=== PATIENT | female | born 1965 | race Caucasian/White ===

== ENCOUNTER 2019-05-08 22:13 | Emergency (ER) | payer SELFPAY ==
[2019-05-08 23:01] VITALS: BP 151/101; PULSE 96; RESP 18; TEMP 36.7; O2SAT 92; BMI 24.7
--- NOTE | 2019-05-08 23:37 | XR_ITS ---
WS: [id number] XR chest 1V portable [id number] REASON FOR EXAM: admission FINDINGS: Comparisons were made to 02/07/2018. The lung nicole are well aerated. No pneumonia, pleural effusion, pulmonary edema, or mass effect. The heart was not enlarged. Cardiomediastinal ratios appear to be normal. The hilum and apices are normal. No osseous abnormalities. XR/XR chest 1V portable [id number] IMPRESSION: No active cardiopulmonary disease.
--- NOTE | 2019-05-08 23:37 | W.ED.GENADLT ---
HPI - General Adult General: Chief complaint: Shortness of Breath/Dyspnea Stated complaint: sob, cough Time Seen by Provider: 05/08/19 23:33 History of Present Illness: HPI narrative: Patient with a history of a cough for the last few days fever exposure to influenza B. Patient said her cough is getting worse. History of COPD and a smoker. MD complaint: Cough Onset (ago): day(s) Radiation: non-radiation Associated symptoms: Reports cough, dyspnea and fevers/chills; Deny chest pain, headache(s), nausea, rash or vomiting Review of Systems Const: Reports: fever; Denies: chills or body aches Eyes: Denies: change in vision or blurry vision ENMT: Denies: throat pain or nasal congestion Card: Denies: chest pain or shortness of breath on exertion Resp: Reports: shortness of breath, non-productive cough and wheezing; Denies: productive cough GI: Denies: abdominal pain, nausea or vomiting Musc: Denies: extremity pain Skin/Breast: Denies: rash Neuro: Denies: headache Psych: Denies: anxiety or depression Reji/Lymph: Denies: easy bruising PFSH ED PFSH: Social History Smoking and tobacco status: current every day smoker Physical Exam Const: COMMON NORMALS: no apparent distress, average body habitus and oriented x3 HENMT: COMMON NORMALS: normocephalic HEAD & SCALP: normal to inspection and normocephalic FACE & SINUS: normal facial exam Eye: COMMON NORMALS: conjunctivae normal GENERAL EYE: normal appearance of both eyes CONJUNCTIVA: Yes conjunctivae normal Neck/C-Spine: COMMON NORMALS: no JVD Chest: COMMONS NORMALS: inspection of chest normal Resp: COMMON NORMALS: normal respiratory effort AUSCULTATION: wheezes left lower and left upper Cardio: COMMON NORMALS: no JVD, regular rate and regular rhythm RATE: regular rate RHYTHM: regular rhythm GI: COMMON NORMALS: normal to inspection, nondistended, normoactive bowel sounds Extremity: COMMON NORMALS: normal to inspection and full ROM Neuro: COMMON NORMALS: oriented x3 Course Vital Signs: Vital signs: Vital Signs Temperature 98.1 F 05/08/19 23:01 Pulse Rate 84 05/08/19 23:50 Respiratory Rate 18 05/08/19 23:50 Blood Pressure 132/81 05/08/19 23:49 Pulse Oximetry 99 05/08/19 23:50 MDM - General Adult Lab Data: Labs: Lab Results 05/08/19 Range/Units 23:40 Influenza Type A A g Negative (Negative) POC Influenza B Ag Negative (Negative) Imaging Data^: CXR: My impression: No infiltrate seen increased bronchial markings emphysema changes Discharge Plan Discharge Prescriptions: No Action Zyrtec 10 mg Tablet 10 mg PO DAILY RF: 0 Coding Level of Care Code ED Medical Videographer for Chg Fwd Exam Comprehensive
[2019-05-08 23:47] VITALS: PULSE 85; RESP 18; O2SAT 97
[2019-05-08] MEDS: ipratropium-albuterol 3 mL Neb INHALATION (23:47)
[2019-05-08 23:49] VITALS: BP 132/81; PULSE 89; RESP 20; O2SAT 99
[2019-05-08 23:50] VITALS: PULSE 84; RESP 18; O2SAT 99
[2019-05-08] MEDS: predniSONE 20 mg Tablet 60 MG PO (23:57)
[2019-05-09 00:23] LABS: Influenza A by IFA Negative (Negative); Influenza B by IFA Negative (Negative)
[2019-05-09] MEDS: azithromycin 250 mg Tablet 500 MG PO (01:01)
[2019-05-09 01:03] VITALS: BP 129/79; PULSE 89; RESP 18; O2SAT 93
== END 2019-05-09 01:04 | disposition home or self-care (01) ==
PROVIDERS: Emergency Provider Nurse Practitioner Family; Family Provider Family Medicine; PCP Family Medicine
DX: R06.02 Shortness of breath (principal); R05 Cough; R50.9 Fever, unspecified; J44.9 Chronic obstructive pulmonary disease, unspecified; F17.200 Nicotine dependence, unspecified, uncomplicated
CPT/HCPCS: 71045; 87804; 94640; 99281; 99283; J7512; Q0144

== ENCOUNTER 2019-10-17 23:53 | Emergency (ER) | payer SELFPAY ==
[2019-10-17 23:56] VITALS: BP 185/84; PULSE 85; RESP 18; TEMP 36.9; O2SAT 96; BMI 25.9
[2019-10-18 00:12] VITALS: BP 176/91; PULSE 85; RESP 19; O2SAT 96
--- NOTE | 2019-10-18 00:22 | XRR_ITS ---
PROCEDURE INFORMATION: Exam: XR Chest, 1 View Exam date and time: 10/18/2019 1:54 AM Age: 54 years old Clinical indication: Shortness of breath; Additional info: SOB x several days TECHNIQUE: Imaging protocol: XR of the chest Views: 1 view. COMPARISON: CR XR chest 1V portable [id number] 05/09/2019 12:13 AM FINDINGS: Lungs: No consolidation. Pleural space: No pleural effusion. No pneumothorax. Heart/Mediastinum: No cardiomegaly. Bones/joints: No acute fracture. XR/XR chest 1V portable [id number] IMPRESSION: No acute findings.
--- NOTE | 2019-10-18 00:23 | ECG_ITS ---
[facility] Test Date: 2019-10-18 Pat Name: Ines Gallegos Department: Room: Gender: Female Operations Engineer: : 1965 Requested By: Leandro Norton Order Number: [id number] Alisha MD: Renetta Moy M.D. Measurements Intervals [place] Rate: 77 P: 63 HI: 141 QRS: 13 QRSD: 117 T: 65 QT: 378 QTc: 429 Interpretive Statements SINUS RHYTHM POSSIBLE LEFT ATRIAL ENLARGEMENT [-0.1mV P WAVE IN V1/V2] INCOMPLETE RIGHT BUNDLE BRANCH BLOCK [90+ ms QRS DURATION, TERMINAL R IN V1/V2, 40+ ms S IN I/aVL/V4/V5/V6] SEPTAL MYOCARDIAL INFARCTION , OF INDETERMINATE AGE [40+ ms Q WAVE IN V1/V2] No previous ECG available for comparison Electronically Signed On 10-18-2019 21:27:53 CDT by Renetta Moy M.D. [email or web address]
[2019-10-18 00:38] LABS: Basophils % 0.3 %; Eosinophils # 0.1 10^3/uL (0.0-0.8); Eosinophils % 0.8 %; Hematocrit 42.7 % (37.0-47.0); Hemoglobin 13.7 g/dL (11.5-15.3); Lymphocytes # 3.6 10^3/uL (0.8-4.8); Lymphocytes % 24.9 %; Mean Corpuscular HGB Conc 32.1 g/dL (30.0-36.0); Mean Corpuscular Hemoglobin 28.4 pg (28.0-34.0); Mean Corpuscular Volume 88.6 fL (81-99); Mean Platelet Volume 11.5 fL (7.4-10.4); Monocytes # 1.1 10^3/uL (0.2-0.9); Monocytes % 7.5 %; Neutrophils # 9.41 10^3/uL (1.8-7.7); Neutrophils % 65.4 %; Nucleated Red Blood Cells % 0 %; Platelet Count 236 10^3/cmm (130-400); Red Blood Count 4.82 10^6/uL (4.1-5.3); Red Cell Distribution Width 12.9 % (12.1-15.1); White Blood Count 14.4 10^3/uL (4.0-10.0)
[2019-10-18 00:49] LABS: Lactic Sepsis W/Reflex 1.5 mmol/L (0.5-2.2)
[2019-10-18 00:51] LABS: Troponin(5th) Baseline 6 ng/L (0-10)
[2019-10-18 00:53] VITALS: BP 161/83; PULSE 76; RESP 18; O2SAT 96
[2019-10-18 00:55] LABS: D Dimer 0.53 ug/mIFEU (0-0.59)
[2019-10-18 00:55] LABS: ABG PCO2 38.2 mmHg (35-45); ABG PH Result 7.43 (7.35-7.45); Arterial Blood Gas Hematocrit 43.6 % (37-47); Base Excess ABG 0.9 mmol/L (-2.0-2.0); Blood Gas Allen Test Pos; Blood Gas Sample Site Radial, right; Blood Gas Sample Type Arterial; Carboxyhemoglobin 3.6 %THgb (0.4-20.1); HCO3 ABG 25.1 mmol/L (22-26); HGB O2 Sat 94.2 % (95-100); Methemoglobin 0.9 % (0.4-1.5); Oxygen Device NC; Total Hemoglobin 14.2 g/dL (12-16)
[2019-10-18 01:01] LABS: Alanine Aminotransferase 16 U/L (0-33); Albumin Level 4.3 g/dL (3.5-5.2); Alkaline Phosphatase 133 IU/L (35-105); Anion Gap 13.9 (5-19); Aspartate Amino Transferase 14 U/L (0-32); Blood Urea Nitrogen 15 mg/dL (6-20); Calcium 9.3 mg/dL (8.5-10.5); Carbon Dioxide 24 mmol/L (22-29); Chloride 106 mmol/L (98-107); Globulin 2.6 g/dL (1.3-4.6); Glomerular Filtration Rate 74.5 mL/min (90-130); Glucose 119 mg/dL (65-115); NT Pro B Type Natriuretic Pept 798 pg/mL (0-125); Osmolality Calculated 287 mOsm/kg (285-295); Potassium 3.9 mmol/L (3.5-5.1); Sodium 140 mmol/L (136-145); Total Bilirubin 0.2 mg/dL (0.15-1.2); Total Protein 6.9 g/dL (6.6-8.7)
[2019-10-18 01:02] VITALS: PULSE 82; PULSE 87; RESP 16; RESP 19; O2SAT 95
[2019-10-18] MEDS: ipratropium-albuterol 3 mL Neb INHALATION (01:02)
[2019-10-18 02:15] VITALS: PULSE 75; RESP 17; O2SAT 96
[2019-10-18 02:18] VITALS: BP 163/115; PULSE 85; RESP 18; O2SAT 93
[2019-10-18 03:08] LABS: Troponin 5 2HR 10.12 ng/L (0-10); Troponin 5 2HR Delta 4.12 ABS# (0-10)
--- NOTE | 2019-10-18 03:27 | ED_ITS ---
HPI - SOB/Dyspnea General: Chief Complaint: Shortness of Breath/Dyspnea Stated Complaint: SOB Time Seen by Provider: 10/18/19 00:04 History of Present Illness: HPI Narrative: 54-year-old female with a history of COPD. She reports increasing shortness of breath past few days. She had been to her provider, and gotten some prednisone and antibiotics previously, and had taken 3 days of 40 mg of prednisone. She has been using her inhaler, but without a spacer at home. She improved with a breathing treatment and oxygen on the ambulance. She denies any fever, significant cough, or exposure to anyone known to have the coronavirus. MD elicited complaint: shortness of breath and cough Pertinent past history: COPD Onset (ago): day(s) Context: recent illness Timing: intermittent Severity: moderate Exacerbating factors: exertion Relieving factors: oxygen and bronchodilators Known history of: COPD Associated symptoms: Reports dizziness; Deny diaphoresis, fever(s), nausea or orthopnea Review of Systems Const: Denies: fever(s) or diaphoresis Eyes: Denies: change in vision or blurry vision ENMT: Denies: bleeding gums, epistaxis, post nasal drip or sinus pain Card: Denies: orthopnea Resp: Reports: dyspnea and non-productive cough; Denies: productive cough or wheezing GI: Denies: nausea : Denies: dysuria, urinary frequency, urinary urgency or hematuria Musc: Denies: neck pain, back pain, joint redness or joint warmth Skin/Breast: Denies: rash, pruritus or erythema Neuro: Reports: dizziness Psych: Denies: anxiety PFSH ED PFSH: Social History Smoking and tobacco status: current every day smoker cigarettes Packs smoked per day: 0.5 Physical Exam Const: GENERAL APPEARANCE: well developed ORIENTATION/CONSCIOUSNESS: Yes oriented to person, Yes oriented to place and Yes oriented to time HENMT: COMMON NORMALS: normocephalic, external ears normal and Normal external nose present HEAD & SCALP: normocephalic FACE & SINUS: normal facial exam NOSE: Normal external nose present and No nasal discharge present EXTERNAL EAR: Yes external ears normal Eye: COMMON NORMALS: Equal, round and reactive pupils present, EOMs intact bilaterally and conjunctivae normal EYELID: eyelids normal CONJUNCTIVA: Yes conjunctivae normal PUPIL: Yes Equal, round and reactive pupils present Neck/C-Spine: GENERAL: No tracheal deviation Chest: COMMONS NORMALS: normal inspection of the chest CHEST: No tenderness Resp: COMMON NORMALS: clear to auscultation bilaterally EFFORT & INSPECTION: Yes tachypneic, No respiratory distress, No retractions, No uses accessory muscles and No tracheal deviation AUSCULTATION: clear to auscultation bilaterally, no rhonchi, no wheezes and lung sounds not diminished Cardio: COMMON NORMALS: regular rate and regular rhythm RATE: regular rate RHYTHM: regular rhythm HEART SOUNDS: no murmurs PERIPHERAL PULSES: radial pulses present GI: INSPECTION: No abdominal distension AUSCULTATION: No Hyperactive bowel sounds present and No Hypoactive bowel sounds present PALPATION: No Guarding due to palpation present (GI) and No Rigid due to palpation PERCUSSION: no dullness to percussion and no tympanic to percussion Neuro: SENSORIUM/ORIENTATION: Yes oriented to person, Yes oriented to place and Yes oriented to time Psych: COMMON NORMALS: mental status grossly normal Skin: COMMON NORMALS: no rashes or lesions noted GENERAL SKIN EXAM: no rashes or lesions noted Course Vital Signs: Vital signs: Vital Signs Temperature 98.4 F 10/17/19 23:56 Pulse Rate 85 10/18/19 02:18 Respiratory Rate 18 10/18/19 02:18 Blood Pressure 163/115 10/18/19 02:18 Pulse Oximetry 93 10/18/19 02:18 MDM - SOB/Dyspnea MDM Narrative: Medical decision making narrative: 54-year-old female who had been to her primary care provider a couple of days prior and been prescribed steroids and an inhaler. Respiratory observed her using her inhaler while here, and she was not very efficient with it. She took to a spacer much better. She is much better after a DuoNeb treatment here. She has been given Solu-Medrol. She will continue her prednisone and azithromycin she be prescribed ipratropium to combined with her albuterol to use with a spacer. She knows to return for any worsening shortness of breath or other symptoms. Lab Data: Labs: Lab Results 10/18/19 10/18/19 10/18/19 Range/Units 00:10 00:10 00:10 WBC 14.4 H (4.0-10.0) 10^3/ uL RBC 4.82 (4.1-5.3) 10^6/u L Hgb 13.7 (11.5-15.3) g/dL Hct 42.7 (37.0-47.0) % MCV 88.6 (81-99) fL MCH 28.4 (28.0-34.0) pg MCHC 32.1 (30.0-36.0) g/dL RDW 12.9 (12.1-15.1) % Plt Count 236 (130-400) 10^3/c mm MPV 11.5 H (7.4-10.4) fL Neut % (Auto) 65.4 % Lymph % (Auto) 24.9 % Frontier % (Auto) 7.5 % Eos % (Auto) 0.8 % Baso % (Auto) 0.3 % Neut # (Auto) 9.41 H (1.8-7.7) 10^3/u L Lymph # (Auto) 3.6 (0.8-4.8) 10^3/u L Frontier # (Auto) 1.1 H (0.2-0.9) 10^3/u L Eos # (Auto) 0.1 (0.0-0.8) 10^3/u L Baso # (Auto) 0.0 (0.0-0.1) 10^3/u L Nucleated RBC % (a uto) 0 % Nucleated RBCs # 0.0 /100WBC D-Dimer 0.53 (0-0.59) ug/mIFE U Specimen Type Sample Site ABG pH (7.35-7.45) ABG pCO2 (35-45) mmHg ABG pO2 (80.0-100.0) mmH g ABG HCO3 (22-26) mmol/L ABG Base Excess (-2.0-2.0) mmol/ L Hank Test Hematocrit (37-47) % Hgb O2 Saturation (95-100) % Carboxyhemoglobin (0.4-20.1) %THgb Methemoglobin (0.4-1.5) % Total Hemoglobin (12-16) g/dL O2 Delivery Device O2 Liters/Min % Machine Hostler ID Sodium 140 (136-145) mmol/L Potassium 3.9 (3.5-5.1) mmol/L Chloride 106 (98-107) mmol/L Carbon Dioxide 24 (22-29) mmol/L Anion Gap 13.9 (5-19) BUN 15 (6-20) mg/dL Creatinine 0.8 (0.5-0.9) mg/dL GFR Calculation 74.5 L (90-130) mL/min Glucose 119 H (65-115) mg/dL Calculated Osmolal ity 287 (285-295) mOsm/k g Lactic Acid (0.5-2.2) mmol/L Calcium 9.3 (8.5-10.5) mg/dL Total Bilirubin 0.2 (0.15-1.2) mg/dL AST 14 (0-32) U/L ALT 16 (0-33) U/L Alkaline Phosphata se 133 H (35-105) IU/L Troponin T Baselin e (0-10) ng/L Troponin T 120 Min [place] (0-10) ng/L Delta Troponin T (0-10) ABS# NT-Pro-B Natriuret Pep 798 H (0-125) pg/mL Total Protein 6.9 (6.6-8.7) g/dL Albumin 4.3 (3.5-5.2) g/dL Globulin 2.6 (1.3-4.6) g/dL 10/18/19 10/18/19 10/18/19 Range/Units 00:10 00:10 00:48 WBC (4.0-10.0) 10^3/ uL RBC (4.1-5.3) 10^6/u L Hgb (11.5-15.3) g/dL Hct (37.0-47.0) % MCV (81-99) fL MCH (28.0-34.0) pg MCHC (30.0-36.0) g/dL RDW (12.1-15.1) % Plt Count (130-400) 10^3/c mm MPV (7.4-10.4) fL Neut % (Auto) % Lymph % (Auto) % Frontier % (Auto) % Eos % (Auto) % Baso % (Auto) % Neut # (Auto) (1.8-7.7) 10^3/u L Lymph # (Auto) (0.8-4.8) 10^3/u L Frontier # (Auto) (0.2-0.9) 10^3/u L Eos # (Auto) (0.0-0.8) 10^3/u L Baso # (Auto) (0.0-0.1) 10^3/u L Nucleated RBC % (a uto) % Nucleated RBCs # /100WBC D-Dimer (0-0.59) ug/mIFE U Specimen Type Arterial Sample Site Radial, right ABG pH 7.43 (7.35-7.45) ABG pCO2 38.2 (35-45) mmHg ABG pO2 108.0 H (80.0-100.0) mmH g ABG HCO3 25.1 (22-26) mmol/L ABG Base Excess 0.9 (-2.0-2.0) mmol/ L Hank Test Pos Hematocrit 43.6 (37-47) % Hgb O2 Saturation 94.2 L (95-100) % Carboxyhemoglobin 3.6 (0.4-20.1) %THgb Methemoglobin 0.9 (0.4-1.5) % Total Hemoglobin 14.2 (12-16) g/dL O2 Delivery Device Nc O2 Liters/Min 2.0 % Machine Hostler ID [email or web address] Sodium (136-145) mmol/L Potassium (3.5-5.1) mmol/L Chloride (98-107) mmol/L Carbon Dioxide (22-29) mmol/L Anion Gap (5-19) BUN (6-20) mg/dL Creatinine (0.5-0.9) mg/dL GFR Calculation (90-130) mL/min Glucose (65-115) mg/dL Calculated Osmolal ity (285-295) mOsm/k g Lactic Acid 1.5 (0.5-2.2) mmol/L Calcium (8.5-10.5) mg/dL Total Bilirubin (0.15-1.2) mg/dL AST (0-32) U/L ALT (0-33) U/L Alkaline Phosphata se (35-105) IU/L Troponin T Baselin e 6 (0-10) ng/L Troponin T 120 Min [place] (0-10) ng/L Delta Troponin T (0-10) ABS# NT-Pro-B Natriuret Pep (0-125) pg/mL Total Protein (6.6-8.7) g/dL Albumin (3.5-5.2) g/dL Globulin (1.3-4.6) g/dL 10/18/19 Range/Units 02:07 WBC (4.0-10.0) 10^3/ uL RBC (4.1-5.3) 10^6/u L Hgb (11.5-15.3) g/dL Hct (37.0-47.0) % MCV (81-99) fL MCH (28.0-34.0) pg MCHC (30.0-36.0) g/dL RDW (12.1-15.1) % Plt Count (130-400) 10^3/c mm MPV (7.4-10.4) fL Neut % (Auto) % Lymph % (Auto) % Frontier % (Auto) % Eos % (Auto) % Baso % (Auto) % Neut # (Auto) (1.8-7.7) 10^3/u L Lymph # (Auto) (0.8-4.8) 10^3/u L Frontier # (Auto) (0.2-0.9) 10^3/u L Eos # (Auto) (0.0-0.8) 10^3/u L Baso # (Auto) (0.0-0.1) 10^3/u L Nucleated RBC % (a uto) % Nucleated RBCs # /100WBC D-Dimer (0-0.59) ug/mIFE U Specimen Type Sample Site ABG pH (7.35-7.45) ABG pCO2 (35-45) mmHg ABG pO2 (80.0-100.0) mmH g ABG HCO3 (22-26) mmol/L ABG Base Excess (-2.0-2.0) mmol/ L Hank Test Hematocrit (37-47) % Hgb O2 Saturation (95-100) % Carboxyhemoglobin (0.4-20.1) %THgb Methemoglobin (0.4-1.5) % Total Hemoglobin (12-16) g/dL O2 Delivery Device O2 Liters/Min % Machine Hostler ID Sodium (136-145) mmol/L Potassium (3.5-5.1) mmol/L Chloride (98-107) mmol/L Carbon Dioxide (22-29) mmol/L Anion Gap (5-19) BUN (6-20) mg/dL Creatinine (0.5-0.9) mg/dL GFR Calculation (90-130) mL/min Glucose (65-115) mg/dL Calculated Osmolal ity (285-295) mOsm/k g Lactic Acid (0.5-2.2) mmol/L Calcium (8.5-10.5) mg/dL Total Bilirubin (0.15-1.2) mg/dL AST (0-32) U/L ALT (0-33) U/L Alkaline Phosphata se (35-105) IU/L Troponin T Baselin e (0-10) ng/L Troponin T 120 Min [place] 10.12 H (0-10) ng/L Delta Troponin T 4.12 (0-10) ABS# NT-Pro-B Natriuret Pep (0-125) pg/mL Total Protein (6.6-8.7) g/dL Albumin (3.5-5.2) g/dL Globulin (1.3-4.6) g/dL Discharge Plan Discharge Patient Disposition: Home Clinical Impression: COPD exacerbation Condition: Stable Prescriptions: New ipratropium bromide 17 mcg/actuation HFA aerosol inhaler 1 inh INHALATION Q6H PRN (Reason: shortness of breath or wheezing) Qty: 12.9 RF: 0 No Action famotidine 10 mg tablet 10 mg PO DAILY RF: 0 albuterol sulfate 90 mcg/actuation HFA aerosol inhaler 2 inh INHALATION QID PRN (Reason: shortness of breath or wheezing) Qty: 18 RF: 3 fluticasone propion-salmeterol [Advair Diskus] 250-50 mcg/dose blister with device 1 inh INHALATION BID Qty: 60 RF: 11 Zyrtec 10 mg Tablet 10 mg PO DAILY RF: 0 Discharge Orders: Discharge Order (Routine); Ordered 10/18/19 Ordered By: Leandro Sagastume Discharge Diet: Usual diet Discharge Activity: Increase activity as tolerated Patient Instructions: Chronic Obstructive Pulmonary Disease (ED) Activity Restrictions/Additional Instructions: Return to the emergency department for worsening shortness of breath despite treatment, fever greater than 100, worsening mental status, worsening chest discomfort, other concerning symptoms. Be sure to use the spacer with your albuterol. Use also with the new inhaler you were given. Use both the albuterol and ipratropium inhaler every 4 hours while awake for the next 48 hours, then as needed. Discharge Date/Time: 10/18/19 02:24 Coding Level of Care Code ED Instructor Knitting for Lisa Ibrahim
== END 2019-10-18 02:24 | disposition home or self-care (01) ==
PROVIDERS: Emergency Provider Emergency Medicine
DX: J44.1 Chronic obstructive pulmonary disease with (acute) exacerbation (principal); F17.210 Nicotine dependence, cigarettes, uncomplicated
CPT/HCPCS: 12345; 36600; 71045; 80053; 82805; 83605; 83880; 84484; 85025; 85378; 87040; 87070; 87205; 93005; 94640; 96374; 99283; 99284; J2930

== ENCOUNTER → 2019-11-26 08:36 | Outpatient (BNVA) | payer OTHER, SELFPAY | PROVIDERS: Visit Provider Internal Medicine | DX: Z11.59 Encounter for screening for other viral diseases (principal) | CPT/HCPCS: 87635 ==

== ENCOUNTER 2019-11-29 01:23 | Emergency (ER) | payer SELFPAY ==
[2019-11-29 01:28] VITALS: BP 150/103; PULSE 91; RESP 16; TEMP 36.4; O2SAT 97; BMI 26.5
--- NOTE | 2019-11-29 01:54 | XRR_ITS ---
PROCEDURE INFORMATION: Exam: XR Chest, 1 View Exam date and time: 11/29/2019 2:47 AM Age: 54 years old Clinical indication: Cough TECHNIQUE: Imaging protocol: XR of the chest Views: 1 view. COMPARISON: CR XR chest 1V portable [id number] 10/18/2019 1:43 AM FINDINGS: Lungs: Unremarkable. No consolidation. Pleural space: Unremarkable. No pleural effusion. No pneumothorax. Heart/Mediastinum: Unremarkable. No cardiomegaly. Bones/joints: Unremarkable. XR/XR chest 1V portable [id number] IMPRESSION: No acute findings.
--- NOTE | 2019-11-29 01:54 | CTR_ITS ---
PROCEDURE INFORMATION: Exam: CT Neck With Contrast Exam date and time: 11/29/2019 2:17 AM Age: 54 years old Clinical indication: Dysphagia / difficulty swallowing and mass, lump, or swelling in neck; Additional info: Throat tightness, ludwigs? TECHNIQUE: Imaging protocol: Computed tomography images of the neck with intravenous contrast. Radiation optimization: All CT scans at this facility use at least one of these dose optimization techniques: automated exposure control; mA and/or kV adjustment per patient size (includes targeted exams where dose is matched to clinical indication); or iterative reconstruction. Contrast material: OMNI 300; Contrast volume: 95 ml; Contrast route: INTRAVENOUS (IV); COMPARISON: No relevant prior studies available. RADIATION DOSE METRICS: Total DLP (mGy-cm): 581.83 FINDINGS: Nasopharynx: Unremarkable. Oropharynx: Unremarkable. No significant tonsillar enlargement. Hypopharynx: There is diffuse hypoattenuation and swelling seen within the fat and fascia at the base of the epiglottis extending along the right hypopharynx at the level of the hyoid bone and caudally to the level of the arytenoids. Some low attenuation material extends along the fascial planes anterior to the hyoid bone and superficial to the mylohyoid muscle on the right, deep to the right submandibular gland and extending posteriorly to the the right carotid sheath and medially into the prevertebral fascia planes on the right. These findings are compatible with pharyngitis and mild epiglottitis. Larynx: See Hypopharynx finding. Retropharyngeal space: Unremarkable. Submandibular/Parotid glands: See Hypopharynx finding. Thyroid: Normal. No enlarged or calcified nodules. Lymph nodes: Unremarkable. No lymphadenopathy. Trachea: Visualized trachea is unremarkable. Lungs: Unremarkable as visualized. Bones/joints: Unremarkable. No acute fracture. Soft tissues: Unremarkable. No significant soft tissue swelling. CT/CT neck w con* [id number] IMPRESSION: Edema and inflammatory changes are seen in the pharyngeal soft tissues on the right extending from the base of the epiglottis caudally on the right to the level of the arytenoids. Low attenuation extends anterior to the hyoid bone on the right deep to the right submandibular gland and superficial to the mylohyoid muscle. Low attenuation extends posteriorly to the right carotid sheath and medially into the prevertebral fascia planes. These findings suggest pharyngitis and mild epiglottitis. Radiation Dose CTDIVOL = (mGy): DLP = 581.83 (mGy-cm)
[2019-11-29 02:05] LABS: Basophils # 0.1 10^3/uL (0.0-0.1); Basophils % 0.7 %; Eosinophils # 0.4 10^3/uL (0.0-0.8); Eosinophils % 3.4 %; Hematocrit 40.3 % (37.0-47.0); Hemoglobin 13.2 g/dL (11.5-15.3); Lymphocytes # 3.8 10^3/uL (0.8-4.8); Lymphocytes % 35.6 %; Mean Corpuscular HGB Conc 32.8 g/dL (30.0-36.0); Mean Corpuscular Hemoglobin 29.3 pg (28.0-34.0); Mean Corpuscular Volume 89.6 fL (81-99); Mean Platelet Volume 11.3 fL (7.4-10.4); Monocytes # 0.8 10^3/uL (0.2-0.9); Monocytes % 7.7 %; Neutrophils # 5.61 10^3/uL (1.8-7.7); Neutrophils % 52.4 %; Nucleated Red Blood Cells % 0 %; Platelet Count 249 10^3/cmm (130-400); Red Cell Distribution Width 13.2 % (12.1-15.1); White Blood Count 10.7 10^3/uL (4.0-10.0)
[2019-11-29] MEDS: diphenhydrAMINE 50 mg/mL SDV 1mL 25 MG IVP (02:09)
[2019-11-29] MEDS: racepinephrine 0.5 mL Neb INHALATION (02:20)
[2019-11-29 02:21] VITALS: PULSE 81; RESP 20; O2SAT 98
[2019-11-29 02:23] VITALS: BP 152/96; PULSE 76; RESP 18; O2SAT 97
[2019-11-29 02:26] VITALS: PULSE 93
[2019-11-29 02:27] LABS: Alanine Aminotransferase 14 U/L (0-33); Albumin Level 4.2 g/dL (3.5-5.2); Alkaline Phosphatase 158 IU/L (35-105); Anion Gap 14.9 (5-19); Aspartate Amino Transferase 17 U/L (0-32); Blood Urea Nitrogen 12 mg/dL (6-20); Calcium 9.9 mg/dL (8.5-10.5); Carbon Dioxide 25 mmol/L (22-29); Chloride 102 mmol/L (98-107); Globulin 3.5 g/dL (1.3-4.6); Glucose 121 mg/dL (65-115); Osmolality Calculated 283 mOsm/kg (285-295); Potassium 3.9 mmol/L (3.5-5.1); Sodium 138 mmol/L (136-145); Total Bilirubin 0.2 mg/dL (0.15-1.2); Total Protein 7.7 g/dL (6.6-8.7)
[2019-11-29] MEDS: iohexol 300 mg/mL 100 mL Btl IV (02:35)
--- NOTE | 2019-11-29 03:12 | W.ED.URI ---
HPI - URI/Sore Throat General: Chief Complaint: Upper Respiratory Infection Stated Complaint: difficulty swallowing Time Seen by Provider: 11/29/19 01:32 History of Present Illness: HPI Narrative: 54-year-old lady who states she is had a cough for several days. She reports that she was coughing tonight, and felt something pop on the right side of her throat. Since then she has been experiencing pain, swelling, and a tight feeling to the right side of her throat. She states it is hard to swallow. She was tested for COVID on Friday, she does not know the results yet. MD elicited complaint: cough, sore throat and other Pertinent past history: pneumonia and COPD Onset (ago): hour(s) Consistency: constant Severity: moderate Able to tolerate fluids by mouth: Yes Exacerbating factors: swallowing Relieving factors: nothing Associated symptoms: Reports cough and sore throat; Deny abdominal pain, change in voice, chest pain, epistaxis, fever(s), headache(s), nausea, rhinorrhea, short of breath, sinus pain or vomiting Review of Systems Const: Denies: fever(s) Eyes: Denies: change in vision or blurry vision ENMT: Reports: odynophagia; Denies: swelling of lips/tongue, bleeding gums, dental pain, change in hearing, epistaxis, post nasal drip or sinus pain Card: Denies: chest pain, palpitations, irregular heart rhythm or edema Resp: Reports: non-productive cough; Denies: dyspnea, productive cough or wheezing GI: Denies: abdominal pain, nausea or vomiting : Denies: dysuria Musc: Denies: neck pain, back pain, joint redness or joint warmth Skin/Breast: Denies: rash, pruritus or erythema Neuro: Denies: headache(s), dizziness or vertigo Psych: Denies: anxiety PFSH ED PFSH: Social History (Updated 11/01/19 @ 10:00 by Lori Mendoza LPN) Smoking and tobacco status: current every day smoker cigarettes Packs smoked per day: 0.5 Years cigarettes smoked: 40 [ Other cigarette details: Hx of 1 PPD x 40 Years - Trying to quit ] Quit status (tobacco): considering quitting Alcohol intake: never Lives independently: Yes Household members: spouse Marital status: Current occupational status: unemployed History of recent travel: No Current gender identity: Female Physical Exam Const: GENERAL APPEARANCE: well developed ORIENTATION/CONSCIOUSNESS: Yes oriented to person, Yes oriented to place and Yes oriented to time HENMT: COMMON NORMALS: normocephalic, external ears normal and Normal external nose present HEAD & SCALP: normocephalic FACE & SINUS: normal facial exam NOSE: Normal external nose present and No nasal discharge present EXTERNAL EAR: Yes external ears normal MOUTH: tongue normal TEETH & GINGIVA: no abnormal tooth and associated gingiva THROAT: posterior oropharynx normal and other (Mild swelling/tightness to the right side of the neck, and submandibular region.); no peritonsillar mass Eye: COMMON NORMALS: Equal, round and reactive pupils present, EOMs intact bilaterally and conjunctivae normal EYELID: eyelids normal CONJUNCTIVA: Yes conjunctivae normal PUPIL: Yes Equal, round and reactive pupils present Neck/C-Spine: COMMON NORMALS: full ROM GENERAL: No tracheal deviation CERVICAL SPINE: Yes normal cervical lordosis Chest: COMMONS NORMALS: normal inspection of the chest CHEST: No tenderness Resp: COMMON NORMALS: clear to auscultation bilaterally EFFORT & INSPECTION: No tachypneic, No respiratory distress, No retractions, No uses accessory muscles and No tracheal deviation AUSCULTATION: clear to auscultation bilaterally, no rhonchi, no wheezes and lung sounds not diminished Cardio: COMMON NORMALS: regular rate and regular rhythm RATE: regular rate RHYTHM: regular rhythm HEART SOUNDS: no murmurs PERIPHERAL PULSES: radial pulses present GI: INSPECTION: No abdominal distension AUSCULTATION: No Hyperactive bowel sounds present and No Hypoactive bowel sounds present PALPATION: No Guarding due to palpation present (GI) and No Rigid due to palpation PERCUSSION: no dullness to percussion and no tympanic to percussion Neuro: SENSORIUM/ORIENTATION: Yes oriented to person, Yes oriented to place and Yes oriented to time Psych: COMMON NORMALS: mental status grossly normal Skin: COMMON NORMALS: no rashes or lesions noted GENERAL SKIN EXAM: no rashes or lesions noted Course Reevaluation(s): Reevaluation #1: Reevaluated the patient. She is no worse. She says cool water soothe her throat. That seems to help. She says when she does cough, she feels a swelling under her tongue. Reevaluation #2: Reevaluation #2. The patient has again no worse. She may be a bit better. Her coughing has subsided to some degree. The swelling under her tongue is no worse. She has been sipping water, and handling her own secretions well. Her oxygen saturations have been good. I woke her up, because she was resting comfortably to reevaluate her. Time: 05:02 Vital Signs: Vital signs: Vital Signs Temperature 97.6 F 11/29/19 01:28 Pulse Rate 93 11/29/19 02:26 Respiratory Rate 18 11/29/19 02:23 Blood Pressure 152/96 11/29/19 02:23 Pulse Oximetry 97 11/29/19 02:23 MDM - URI/Sore Throat MDM Narrative: Medical decision making narrative: This is a bit of drainage story. 54-year-old female who experienced some right-sided, at least mainly, swelling and tightness to her throat following a coughing episode and hearing a pop. She denies any fever. She states she has been coughing more possibly because of a blood pressure medicine I have been taking . She has some mild swelling/tightness on exam. CT of the soft tissue of the neck reveals no airway compromise. There is swelling to the right pharynx, down to the base of the epiglottis indicative of pharyngitis. She is handling her own secretions. She is drinking water. She has not worsened since she has been here. This could be angioedema related to her lisinopril, she could have pulled a pharyngeal muscle, creating swelling to the right side. This does not appear to be anything infectious. Her white count is 10.7 with a normal differential. Chest x-ray is negative. With no evidence of airway compromise at this point, and no worsening symptoms, we will allow her home. Treatment with steroids for the next few days. We will have her discontinue her lisinopril which may be a cause. She will be prescribed amlodipine for breakthrough blood pressure problems. Close outpatient follow-up. She knows to return immediately for any worsening of the swelling. Lab Data: Attestation: I reviewed the patient's lab results. Labs: Lab Results 11/29/19 11/29/19 Range/Units 01:57 01:57 WBC 10.7 H (4.0-10.0) 10^3/ uL RBC 4.50 (4.1-5.3) 10^6/u L Hgb 13.2 (11.5-15.3) g/dL Hct 40.3 (37.0-47.0) % MCV 89.6 (81-99) fL MCH 29.3 (28.0-34.0) pg MCHC 32.8 (30.0-36.0) g/dL RDW 13.2 (12.1-15.1) % Plt Count 249 (130-400) 10^3/c mm MPV 11.3 H (7.4-10.4) fL Neut % (Auto) 52.4 % Lymph % (Auto) 35.6 % [place] % (Auto) 7.7 % Eos % (Auto) 3.4 % Baso % (Auto) 0.7 % Neut # (Auto) 5.61 (1.8-7.7) 10^3/u L Lymph # (Auto) 3.8 (0.8-4.8) 10^3/u L [place] # (Auto) 0.8 (0.2-0.9) 10^3/u L Eos # (Auto) 0.4 (0.0-0.8) 10^3/u L Baso # (Auto) 0.1 (0.0-0.1) 10^3/u L Nucleated RBC % (a uto) 0 % Nucleated RBCs # 0.0 /100WBC Sodium 138 (136-145) mmol/L Potassium 3.9 (3.5-5.1) mmol/L Chloride 102 (98-107) mmol/L Carbon Dioxide 25 (22-29) mmol/L Anion Gap 14.9 (5-19) BUN 12 (6-20) mg/dL Creatinine 0.9 (0.5-0.9) mg/dL GFR Calculation 65.0 L (90-130) mL/min Glucose 121 H (65-115) mg/dL Calculated Osmolal ity 283 L (285-295) mOsm/k g Calcium 9.9 (8.5-10.5) mg/dL Total Bilirubin 0.2 (0.15-1.2) mg/dL AST 17 (0-32) U/L ALT 14 (0-33) U/L Alkaline Phosphata se 158 H (35-105) IU/L Total Protein 7.7 (6.6-8.7) g/dL Albumin 4.2 (3.5-5.2) g/dL Globulin 3.5 (1.3-4.6) g/dL Discharge Plan Discharge Patient Disposition: Home Clinical Impression: KRISTINA-inhibitor cough Pharyngitis Qualifiers: Pharyngitis/tonsillitis etiology: unspecified etiology Qualified Code(s): J02.9 - Acute pharyngitis, unspecified Condition: Stable Prescriptions: New Medrol (Fransico) 4 mg tablets,dose pack See Rx Instructions .ROUTE .COMPLEX Qty: 21 RF: 0 amlodipine 5 mg tablet 5 mg PO DAILY Qty: 30 RF: 0 No Action famotidine 10 mg tablet 10 mg PO DAILY RF: 0 albuterol sulfate 90 mcg/actuation HFA aerosol inhaler 2 inh INHALATION QID PRN (Reason: shortness of breath or wheezing) Qty: 18 RF: 3 fluticasone propion-salmeterol [Advair Diskus] 250-50 mcg/dose blister with device 1 inh INHALATION BID Qty: 60 RF: 11 lisinopril 10 mg tablet 10 mg PO DAILY Qty: 30 RF: 5 Zyrtec 10 mg Tablet 10 mg PO DAILY RF: 0 ipratropium bromide 17 mcg/actuation HFA aerosol inhaler 1 inh INHALATION Q6H PRN (Reason: shortness of breath or wheezing) Qty: 12.9 RF: 0 Discharge Orders: Discharge Order (Routine); Ordered 11/29/19 Ordered By: Leandro Sagastume Discharge Diet: Advance as tolerated Discharge Activity: Increase activity as tolerated Activity Restrictions/Additional Instructions: Return immediately to the emergency department for any increased swelling under your tongue, or feeling of throat tightness. Return for worsening cough, fever, shortness of breath, or other concerning symptoms. Stop/discontinue your lisinopril. Measure your blood pressure twice daily starting tomorrow. If your blood pressure is high, you may use the prescribed medication for now. Outpatient follow-up with your physician. Steroid medication for swelling as directed. Coding Level of Care Code ED [employer] for Lisa Fwd Exam Comprehensive
[2019-11-29 05:07] VITALS: BP 147/87; PULSE 79; RESP 16; O2SAT 99
== END 2019-11-29 05:14 | disposition home or self-care (01) ==
PROVIDERS: Emergency Provider Emergency Medicine
DX: R05 Cough (principal); J02.9 Acute pharyngitis, unspecified; F17.210 Nicotine dependence, cigarettes, uncomplicated
CPT/HCPCS: 12345; 70491; 71045; 80053; 85025; 94640; 96374; 96375; 99282; 99284; J1200; J2930; Q9967

== ENCOUNTER 2019-11-30 09:08 | Outpatient (CLI) | payer SELFPAY ==
--- NOTE | 2019-11-30 08:54 | PFTS_ITS ---
Date of Study:12/01/19 Date of Dictation: MECHANICS: Forced vital capacity (FVC) is normal Forced expiratory volume in one second (FEV1) 73% is normal FEV1/FVC is normal FLOW VOLUME LOOP: scooping of expiratory limb of flow volume curve . LUNG VOLUMES: Total lung capacity (TLC) is normal . Residual volume (RV) and RV/TLC both are significantly increased DIFFUSING CAPACITY FOR CARBON MONOXIDE: normal . INTERPRETATION: Spirometry normal. No significant bronchodilator response however does not preclude the use. Increased lung volumes suggestive of air trapping and hyperinflation. normal gas transfer. Increased lung volumes and scooping of the flow volume curve suggestive of obstructive ventilatory defect. Correlate clinically. MTDD
--- NOTE | 2019-11-30 09:30 | USCV_ITS ---
Ines Gallegos Age: 54 Gender: F : 1965 Exam Date: 11/30/2019 09:17 Ordering Phys: Kojo Ariza MD Technologist: Kristina Manzano [place] [facility] [place]: COPD BP: 138 / 82 HR: 88 Rhythm: Sinus Technical Quality: Adequate MEASUREMENTS (Male / Female) Normal Values 2D ECHO LV Diastolic Diameter PLAX 3.9 cm 4.2 - 5.9 / 3.9 - 5.3 cm LV Systolic Diameter PLAX 2.5 cm LV Chamber Size 3.9 cm IVS Diastolic Thickness 0.8 cm 0.6 - 1.0 / 0.6 - 0.9 cm IVS Systolic Thickness 1.1 cm LVPW Diastolic Thickness 1.1 cm 0.6 - 1.0 / 0.6 - 0.9 cm LVPW Systolic Thickness 1.8 cm RV Chamber Size 3.0 cm LVOT Diameter 2.0 cm LV Ejection Fraction 2D Teich 64.1 % LV Ejection Fraction MOD 2C 54.0 % LV Ejection Fraction 2C AL 54.3 % LA Diameter 3.3 cm LA Width 3.0 cm LA Height 3.6 cm RA Width 2.7 cm RA Height 3.5 cm Aorta at Sinotubular Diameter 2.2 cm M-MODE LV Diastolic Diameter MM 4.6 cm 4.2 - 5.9 / 3.9 - 5.3 cm LV Systolic Diameter MM 2.5 cm LV Ejection Fraction MM Teich 76.0 % IVS Diastolic Thickness MM 0.5 cm 0.6 - 1.0 / 0.6 - 0.9 cm IVS Systolic Thickness MM 1.1 cm LVPW Diastolic Thickness MM 0.6 cm 0.6 - 1.0 / 0.6 - 0.9 cm LVPW Systolic Thickness MM 1.0 cm Aortic Annulus Diameter 2.4 cm LA Ao Ratio MM 1.4 MV E Point Septal Separation 0.3 cm DOPPLER AV Peak Velocity 145.0 cm/s LVOT Peak Velocity 120.0 cm/s AV Area Cont Eq vti 2.5 cm squared AV Area Cont Eq pk 2.6 cm squared MV Area PHT 4.2 cm squared Mitral E to A Ratio 1.3 MV E' Velocity 12.0 cm/s Mitral E to MV E' Ratio 8.0 Mitral E to LV E' Lateral Ratio 8.7 Mitral E to LV E' Septal Ratio 7.4 TR Peak Velocity 229.0 cm/s TR Peak Gradient 21.0 mmHg TV Peak E Velocity 75.0 cm/s Right Atrial Pressure 3.0 mmHg Pulmonary Artery Systolic Pressu 24.0 mmHg PV Peak Velocity 99.0 cm/s RV Acceleration Time 0.2 s RV Ejection Time 0.3 s RV AcT/ET 0.5 FINDINGS Left Ventricle Normal left ventricular size and systolic function, EF 55 %. No regional wall motion abnormalities. Right Ventricle Normal right ventricular size and systolic function. Right Atrium Normal right atrial size. Left Atrium Normal left atrial size. Mitral Valve Thickened mitral valve. Mild mitral valve regurgitation. Aortic Valve Thickened noncoronary cusp of the aortic valve. Tricuspid Valve Trace to mild tricuspid valve regurgitation. Pulmonic Valve Pulmonic valve not well visualized. Pericardium No pericardial effusion. Aorta Normal aortic annulus size. CONCLUSIONS Normal left ventricular size and systolic function, EF 55 %. No regional wall motion abnormalities. Normal right ventricular size and systolic function. Thickened mitral valve. Mild mitral valve regurgitation. Thickened noncoronary cusp of the aortic valve. Trace to mild tricuspid valve regurgitation. There is no pericardial effusion. There are no intracardiac masses. No previous study is available for comparison. Dr Dave Abdalla MD FACC (Electronically Signed) Final Date: 30 November 2019 19:20 S
--- NOTE | 2019-11-30 13:54 | PFTS_ITS ---
Date of Study:11/30/19 Date of Dictation: MECHANICS: Forced vital capacity (FVC) is . Forced expiratory volume in one second (FEV1) is . FEV1/FVC is . FLOW VOLUME LOOP: . LUNG VOLUMES: Total lung capacity (TLC) is . Residual volume (RV) is . DIFFUSING CAPACITY FOR CARBON MONOXIDE: . INTERPRETATION: The pulmonary function tests are . mechanics and lung volumes. Gas exchange (DLCO) is . MTDD
== END 2019-11-30 09:09 | disposition home or self-care (01) ==
LOC: US 09:10
PROVIDERS: Visit Provider Internal Medicine Pulmonary Disease
DX: F17.210 Nicotine dependence, cigarettes, uncomplicated; J44.1 Chronic obstructive pulmonary disease with (acute) exacerbation; Z12.2 Encounter for screening for malignant neoplasm of respiratory organs; I08.1 Rheumatic disorders of both mitral and tricuspid valves
CPT/HCPCS: 93306; 94060; 94726; 94729; J7611

== ENCOUNTER 2019-12-08 10:29 | Outpatient (CLI) | payer SELFPAY ==
--- NOTE | 2019-12-08 10:51 | CT_ITS ---
WS: [id number] LDCT LUNG CANCER SCREENING HISTORY: NICOTINE DEPENDENCE TECHNIQUE: Axial imaging performed from the apices to 1 cm below the costophrenic angles. Coronal and sagittal reformats are submitted with axial MIP series. All CT scans at [facility] use at least one of these dose optimization techniques: automated exposure control; mA and/or kV adjustment per patient size (includes targeted exams where dose is matched to clinical indication); or iterativ e reconstruction. DLP: 68.74 mGy.cm DIvol: 1.97 mGy COMPARISON: None available. Diagnostic quality: Satisfactory Lung Nodules: No pulmonary nodule, groundglass attenuation or endobronchial lesions. Lungs: Mild chronic emphysema. Mild biapical pleural thickening. Pleural thickening in the posterior upper RIGHT thorax greater than the LEFT. No pneumonia. Heart: Normal. Other findings: Mild atherosclerosis aorta. No aneurysm. Normal size pulmonary artery. CT/CT lung screening [id number] IMPRESSION: LUNG-RADS: 1-Negative FOLLOW UP: 12 Month: Continue annual screening with LDCT OTHER FINDINGS (S MODIFIER): None.
== END 2019-12-08 10:30 | disposition home or self-care (01) ==
LOC: CT 10:30
PROVIDERS: PCP Family Medicine; Visit Provider Internal Medicine Pulmonary Disease
DX: F17.210 Nicotine dependence, cigarettes, uncomplicated (principal); Z12.2 Encounter for screening for malignant neoplasm of respiratory organs
CPT/HCPCS: G0297

== ENCOUNTER → 2020-01-12 14:17 | Outpatient (BNVA) | payer SELFPAY | PROVIDERS: PCP Family Medicine; Visit Provider Internal Medicine Pulmonary Disease | DX: Z20.828 Contact with and (suspected) exposure to other viral communicable diseases (principal) | CPT/HCPCS: 87635 ==

== ENCOUNTER 2020-01-23 20:38 | Emergency (ER) | payer SELFPAY ==
[2020-01-23] VITALS (7 sets, daily range): BP systolic 150–178; BP diastolic 82–102; PULSE 88–100; RESP 16–24; TEMP 36.5; O2SAT 90–98; BMI 25.6
--- NOTE | 2020-01-23 21:46 | XRR_ITS ---
PROCEDURE INFORMATION: Exam: XR Chest, 1 View Exam date and time: 01/23/2020 9:56 PM Age: 54 years old Clinical indication: Shortness of breath; Additional info: SOB TECHNIQUE: Imaging protocol: XR of the chest Views: 1 view. COMPARISON: CR XR chest 1V portable [id number] 11/29/2019 2:43 AM FINDINGS: Lungs: Unremarkable. No consolidation. Pleural space: Unremarkable. No pleural effusion. No pneumothorax. Heart/Mediastinum: Unremarkable. No cardiomegaly. Bones/joints: Unremarkable. XR/XR chest 1V portable [id number] IMPRESSION: No acute findings.
--- NOTE | 2020-01-23 22:02 | ED_ITS ---
HPI - SOB/Dyspnea General: Chief Complaint: Shortness of Breath/Dyspnea Stated Complaint: SHORTNESS OF BREATH Time Seen by Provider: 01/23/20 21:13 History of Present Illness: HPI Narrative: 54-year-old female with a history of COPD presents with cough, shortness of breath, and wheezing for the past 3 days or so. She has been battling this on and off. She was taking a COPD medication which is expensive, and she ran out and was not able to get her medication refilled. Since that time, she has been using albuterol and Atrovent inhalers without much improvement. She was placed on steroids a couple of weeks ago with transient improvement, but only for 5 days. He denies any fever. She denies exposure to the coronavirus. She denies vomiting or diarrhea. MD elicited complaint: shortness of breath and cough Associated symptoms: Deny abdominal pain, chest pain, dizziness, fever(s), nausea, palpitations or vomiting Review of Systems Const: Denies: fever(s) or chills Eyes: Denies: change in vision ENMT: Denies: odynophagia, swelling of lips/tongue or sinus pain Card: Denies: chest pain, palpitations or irregular heart rhythm Resp: Reports: dyspnea, non-productive cough and wheezing; Denies: productive cough GI: Denies: abdominal pain, nausea or vomiting : Denies: dysuria or hematuria Musc: Denies: neck pain, back pain or joint warmth Skin/Breast: Denies: rash or erythema Neuro: Denies: headache(s), dizziness or vertigo Psych: Denies: anxiety PFSH ED PFSH: Social History (Updated 12/09/19 @ 10:55 by Julien Rivas LPN) Smoking and tobacco status: current every day smoker cigarettes Packs smoked per day: 0.5 Years cigarettes smoked: 40 [ Other cigarette details: Hx of 1 PPD x 40 Years - Trying to quit ] Quit status (tobacco): considering quitting Second hand smoke exposure: Yes Alcohol intake: never Lives independently: Yes Household members: spouse Marital status: Current occupational status: unemployed History of recent travel: No Current gender identity: Female Physical Exam Const: GENERAL APPEARANCE: well developed ORIENTATION/CONSCIOUSNESS: Yes oriented to person, Yes oriented to place and Yes oriented to time HENMT: COMMON NORMALS: normocephalic, external ears normal and Normal external nose present HEAD & SCALP: normocephalic; no scalp tenderness FACE & SINUS: normal facial exam NOSE: Normal external nose present and No nasal discharge present EXTERNAL EAR: Yes external ears normal MOUTH: tongue normal TEETH & GINGIVA: no abnormal tooth and associated gingiva THROAT: posterior oropharynx normal; no peritonsillar mass Eye: COMMON NORMALS: Equal, round and reactive pupils present, EOMs intact bilaterally and conjunctivae normal EYELID: eyelids normal CONJUNCTIVA: Yes conjunctivae normal PUPIL: Yes Equal, round and reactive pupils present Neck/C-Spine: COMMON NORMALS: full ROM GENERAL: No tracheal deviation CERVICAL SPINE: Yes normal cervical lordosis and No Cervical spine tenderness Chest: COMMONS NORMALS: normal inspection of the chest CHEST: No tenderness Resp: COMMON NORMALS: clear to auscultation bilaterally EFFORT & INSPECTION: No tachypneic, No respiratory distress, No retractions, No uses accessory muscles and No tracheal deviation AUSCULTATION: clear to auscultation bilaterally, no rhonchi, no wheezes and lung sounds not diminished Cardio: COMMON NORMALS: regular rate and regular rhythm RATE: regular rate RHYTHM: regular rhythm HEART SOUNDS: no murmurs PERIPHERAL PULSES: radial pulses present GI: INSPECTION: No abdominal distension AUSCULTATION: No Hyperactive bowel sounds present and No Hypoactive bowel sounds present PALPATION: No Guarding due to palpation present (GI) and No Rigid due to palpation PERCUSSION: no dullness to percussion and no tympanic to percussion : COMMON NORMALS: Yes no CVA tenderness BLADDER/KIDNEY EXAM: Yes no CVA tenderness Back/Pelvis: COMMON NORMALS: no CVA tenderness Neuro: SENSORIUM/ORIENTATION: Yes oriented to person, Yes oriented to place and Yes oriented to time Psych: COMMON NORMALS: mental status grossly normal Skin: COMMON NORMALS: no rashes or lesions noted GENERAL SKIN EXAM: no rashes or lesions noted Course Vital Signs: Vital signs: Vital Signs Temperature 97.7 F 01/23/20 20:51 Pulse Rate 91 01/23/20 22:51 Respiratory Rate 24 H 01/23/20 22:51 Blood Pressure 150/82 01/23/20 22:51 Pulse Oximetry 90 01/23/20 22:51 MDM - SOB/Dyspnea MDM Narrative: Medical decision making narrative: Patient somewhat improved after nebulizer treatment, and she is gotten Solu-Medrol. She will be placed on a slow taper steroid hopefully this will help prevent rebound bronchospasm. Discharge Plan Discharge Patient Disposition: Home Clinical Impression: COPD (chronic obstructive pulmonary disease) Qualifiers: COPD type: COPD with acute exacerbation Qualified Code(s): J44.1 - Chronic obstructive pulmonary disease with (acute) exacerbation Condition: Stable Prescriptions: New prednisone 10 mg tablet See Rx Instructions .ROUTE .COMPLEX Qty: 30 RF: 0 No Action famotidine 10 mg tablet 10 mg PO DAILY PRNRF: 0 albuterol sulfate 90 mcg/actuation HFA aerosol inhaler 2 puff INHALATION Q6H PRNRF: 0 lorazepam [Ativan] 2 mg tablet 2 mg PO TID PRN (Reason: anxiety) Qty: 90 RF: 0 Atrovent HFA 17 mcg/actuation HFA aerosol inhaler 1 puff INHALATION QID Qty: 12.9 RF: 5 prednisone 20 mg tablet 20 mg PO DAILY Qty: 5 RF: 0 azithromycin 500 mg tablet 500 mg PO DAILY 5 Days Qty: 5 RF: 0 Spiriva Respimat 2.5 mcg/actuation mist 2 puff INHALATION DAILY Qty: 4 RF: 3 Advair HFA 115-21 mcg/actuation HFA aerosol inhaler 2 puff INHALATION BID Qty: 12 RF: 3 Zyrtec 10 mg Tablet 10 mg PO DAILY RF: 0 amlodipine 5 mg tablet 5 mg PO DAILY Qty: 30 RF: 0 Discharge Orders: Discharge Order (Routine); Ordered 01/23/20 Ordered By: Leandro Sagastume Referrals: Abdifatah Nobles DO [Primary Care Provider] - 4-7 days Discharge Diet: Advance as tolerated Discharge Activity: Increase activity as tolerated Patient Instructions: Chronic Obstructive Pulmonary Disease (ED) Activity Restrictions/Additional Instructions: Return for fever greater than 100, worsening shortness of breath despite treatment, chest pain, other concerning symptoms. Coding Level of Care Code ED [employer] for Lisa Ibrahim Exam Comprehensive
[2020-01-23] MEDS: ipratropium-albuterol 3 mL Neb INHALATION (22:08)
== END 2020-01-23 23:26 | disposition home or self-care (01) ==
PROVIDERS: Emergency Provider Emergency Medicine; PCP Family Medicine
DX: J44.1 Chronic obstructive pulmonary disease with (acute) exacerbation (principal); F17.210 Nicotine dependence, cigarettes, uncomplicated
CPT/HCPCS: 12345; 71045; 94640; 99282; 99283; J2930

== ENCOUNTER 2020-02-11 21:43 | Emergency (ER) | payer SELFPAY ==
[2020-02-11 21:45] VITALS: BP 218/104; PULSE 95; RESP 20; TEMP 36.7; O2SAT 98; BMI 25.6
[2020-02-11] MEDS: LORazepam 1 mg Tablet PO (22:13)
--- NOTE | 2020-02-11 22:30 | ED_ITS ---
HPI - General Adult General: Chief complaint: General Medical Stated complaint: MEDICATION W/D Time Seen by Provider: 02/11/20 21:55 History of Present Illness: HPI narrative: Patient been out of her Ativan for 1 day now having withdrawal symptoms has been taken daily for 2 and half months has not been able get her psych meds filled complaint: Withdrawal from Xanax Onset (ago): day(s) Associated symptoms: Reports headache(s); Deny chest pain, dyspnea, nausea, rash or vomiting Review of Systems Const: Denies: fever(s), chills or body aches Eyes: Denies: change in vision or blurry vision ENMT: Denies: throat pain or nasal congestion Card: Denies: chest pain or dyspnea on exertion Resp: Denies: dyspnea, productive cough or non-productive cough GI: Denies: abdominal pain, nausea or vomiting Musc: Denies: extremity pain Skin/Breast: Denies: rash Neuro: Reports: headache(s) Psych: Reports: anxiety; Denies: depression Reji/Lymph: Denies: easy bruising PFS ED PFSH: Social History (Updated 01/25/20 @ 09:14 by Tyler Johnson LPN) Smoking and tobacco status: current every day smoker cigarettes Packs smoked per day: 0.5 Years cigarettes smoked: 40 [ Other cigarette details: Hx of 1 PPD x 40 Years - Trying to quit ] Quit status (tobacco): has tried quititng Number of times tried to quit tobacco: 5 Second hand smoke exposure: Yes Alcohol intake: never Lives independently: Yes Household members: spouse Marital status: Current occupational status: unemployed History of recent travel: No Current gender identity: Female Physical Exam Const: COMMON NORMALS: no acute distress, average body habitus and patient oriented x3 HENMT: COMMON NORMALS: normocephalic HEAD & SCALP: normal to inspection and normocephalic FACE & SINUS: normal facial exam Eye: COMMON NORMALS: conjunctivae normal GENERAL EYE: appearance normal, both eyes and all related structures CONJUNCTIVA: Yes conjunctivae normal Neck/C-Spine: COMMON NORMALS: no JVD Chest: COMMONS NORMALS: normal inspection of the chest Resp: COMMON NORMALS: normal respiratory effort and clear to auscultation bilaterally AUSCULTATION: clear to auscultation bilaterally Cardio: COMMON NORMALS: no JVD, regular rate and regular rhythm RATE: regular rate RHYTHM: regular rhythm GI: COMMON NORMALS: Normal to inspection, nondistended, normoactive bowel sounds present Extremity: COMMON NORMALS: normal to inspection and full ROM Neuro: COMMON NORMALS: patient oriented x3 Psych: ATTITUDE: Yes Other attitude/behavior findings present (Psych) (Appears anxious) Course Vital Signs: Vital signs: Vital Signs Temperature 98.1 F 02/11/20 21:45 Pulse Rate 95 02/11/20 21:45 Respiratory Rate 20 H 02/11/20 21:45 Blood Pressure 218/104 02/11/20 21:45 Pulse Oximetry 98 02/11/20 21:45 Discharge Plan Discharge Patient Disposition: Home Clinical Impression: Anxiety, Essential hypertension with goal blood pressure less than 130/80 Condition: Stable Prescriptions: New Ativan 1 mg tablet 0.5 mg PO TID PRN (Reason: anxiety) Qty: 20 RF: 0 No Action famotidine 10 mg tablet 10 mg PO DAILY PRNRF: 0 fluoxetine [Prozac] 10 mg capsule 10 mg PO DAILY Qty: 30 RF: 2 propranolol 20 mg tablet 20 mg PO BID PRN (Reason: anxiety) Qty: 60 RF: 2 nicotine 21 mg/24 hr patch 24 hour 1 patch TRANSDERMA DAILY Qty: 28 RF: 2 Chantix 1 mg tablet 1 mg PO BID Qty: 56 RF: 2 albuterol sulfate 90 mcg/actuation HFA aerosol inhaler 2 puff INHALATION Q6H PRNRF: 0 lorazepam [Ativan] 2 mg tablet 2 mg PO TID PRN (Reason: anxiety) Qty: 90 RF: 0 Atrovent HFA 17 mcg/actuation HFA aerosol inhaler 1 puff INHALATION QID Qty: 12.9 RF: 5 prednisone 20 mg tablet 20 mg PO DAILY Qty: 5 RF: 0 azithromycin 500 mg tablet 500 mg PO DAILY 5 Days Qty: 5 RF: 0 Spiriva Respimat 2.5 mcg/actuation mist 2 puff INHALATION DAILY Qty: 4 RF: 3 Advair HFA 115-21 mcg/actuation HFA aerosol inhaler 2 puff INHALATION BID Qty: 12 RF: 3 Zyrtec 10 mg Tablet 10 mg PO DAILY RF: 0 amlodipine 5 mg tablet 5 mg PO DAILY Qty: 30 RF: 0 prednisone 10 mg tablet See Rx Instructions .ROUTE .COMPLEX Qty: 30 RF: 0 Discharge Orders: Discharge Order (Routine); Ordered 02/11/20 Ordered By: Yo Barragan Referrals: [facility], [Primary Care Provider] - Discharge Diet: Usual diet Discharge Activity: Resume usual activity Patient Instructions: Chronic Hypertension (ED), Anxiety (ED) Activity Restrictions/Additional Instructions: Follow-up with medical provider as directed. Take medications as prescribed. Return to the ER or your medical provider if condition worsens. Please read and understand discharge instructions. If any questions ask please. Check blood pressure daily. Get prescription filled and take as directed. Coding Level of Care Code ED Hot Die Press Feeder for Lisa Ibrahim
== END 2020-02-11 22:37 | disposition home or self-care (01) ==
PROVIDERS: Emergency Provider Nurse Practitioner Family
DX: F41.9 Anxiety disorder, unspecified (principal); I10 Essential (primary) hypertension; F17.210 Nicotine dependence, cigarettes, uncomplicated
CPT/HCPCS: 12345; 99281; 99283

== ENCOUNTER 2020-02-24 08:00 | Emergency (ER) | payer SELFPAY ==
[2020-02-24 08:05] VITALS: BP 194/105; PULSE 95; RESP 18; TEMP 36.6; O2SAT 97; BMI 25.6
--- NOTE | 2020-02-24 08:17 | W.ED.RECABL ---
HPI - Recheck/Abnormal Lab/Rx General: Chief Complaint: Recheck/Abnormal Lab/Rx Stated Complaint: high anxiety/withdrawal related Time Seen by Provider: 02/24/20 08:04 Source: patient Mode of arrival: ambulatory Limitations: no limitations History of Present Illness: HPI narrative: 54-year-old female comes in today for a dose of anxiety medication. Patient ran out of her medication today. Patient cannot refill her prescription until tomorrow. Patient believes that she might have taken an extra dose a couple of times over the last month which caused her to run out. Patient is very anxious. Patient also complains of some redness and tenderness to the right facial cheek. Review of Systems General: Reports: 10 or more systems reviewed and unremarkable except in HPI and below Skin/Breast: Reports: changes in skin color Psych: Reports: anxiety PFSH ED PFSH: Social History (Updated 01/25/20 @ 09:14 by Tyler Johnson LPN) Smoking and tobacco status: current every day smoker cigarettes Packs smoked per day: 0.5 Years cigarettes smoked: 40 [ Other cigarette details: Hx of 1 PPD x 40 Years - Trying to quit ] Quit status (tobacco): has tried quititng Number of times tried to quit tobacco: 5 Second hand smoke exposure: Yes Alcohol intake: never Lives independently: Yes Household members: spouse Marital status: Current occupational status: unemployed History of recent travel: No Current gender identity: Female Physical Exam Const: COMMON NORMALS: no acute distress and patient oriented x3 GENERAL APPEARANCE: cooperative HENMT: COMMON NORMALS: normocephalic and Normal external nose present HEAD & SCALP: normal to inspection, normocephalic and other (4 cm area of redness to the right labial facial cheek area. Mildly indurat) NOSE: Normal external nose present MOUTH: Normal oral and palatal mucosa present THROAT: posterior oropharynx normal Eye: GENERAL EYE: appearance normal, both eyes and all related structures Neck/C-Spine: COMMON NORMALS: full ROM Lymph: LYMPHATIC: no lymphadenopathy noted Chest: COMMONS NORMALS: normal inspection of the chest Resp: COMMON NORMALS: normal respiratory effort EFFORT & INSPECTION: Yes able to speak in complete sentences Cardio: COMMON NORMALS: regular rate and regular rhythm RATE: regular rate RHYTHM: regular rhythm GI: COMMON NORMALS: non-tender : COMMON NORMALS: Yes no CVA tenderness BLADDER/KIDNEY EXAM: Yes no CVA tenderness Back/Pelvis: COMMON NORMALS: no CVA tenderness and thoracic and lumbar spine normal to inspection Extremity: COMMON NORMALS: normal to inspection Neuro: COMMON NORMALS: patient oriented x3 and moves all extremities Psych: COMMON NORMALS: mental status grossly normal and cooperative MOOD & AFFECT: Yes anxious Skin: COMMON NORMALS: no rashes or lesions noted GENERAL SKIN EXAM: no rashes or lesions noted Course Vital Signs: Vital signs: Vital Signs Temperature 97.8 F 02/24/20 08:05 Pulse Rate 95 02/24/20 08:05 Respiratory Rate 18 02/24/20 08:05 Blood Pressure 194/105 02/24/20 08:05 Pulse Oximetry 97 02/24/20 08:05 MDM - Recheck/Abnormal Lab/Rx MDM Narrative: Medical decision making narrative: 54-year-old female comes in with concerns for anxiety. On exam is the area of redness and induration to the right facial cheek labial fold of the nose area. It is approximately 4 cm. Examination of the oropharynx noted no abnormality. Patient also seems slightly anxious for being without her medication. Differential diagnosis includes cellulitis, dental infection, seborrheic dermatitis. Secondary diagnosis is out of medication, taking more medications than directed, substance abuse. Reviewed medications with patient for treatment of cellulitis and recommendations for treatment of anxiety. Patient reported understanding and agreed to plan. Discharge Plan Discharge Patient Disposition: Home Clinical Impression: Anxiety Cellulitis Qualifiers: Site of cellulitis: face Qualified Code(s): L03.211 - Cellulitis of face Condition: Stable Prescriptions: New Bactrim DS 800-160 mg tablet 1 tab PO BID 7 Days Qty: 14 RF: 0 No Action famotidine 10 mg tablet 10 mg PO DAILY PRNRF: 0 propranolol 20 mg tablet 20 mg PO BID PRN (Reason: anxiety) Qty: 60 RF: 2 nicotine 21 mg/24 hr patch 24 hour 1 patch TRANSDERMA DAILY Qty: 28 RF: 2 Chantix 1 mg tablet 1 mg PO BID Qty: 56 RF: 2 albuterol sulfate 90 mcg/actuation HFA aerosol inhaler 2 puff INHALATION Q6H PRNRF: 0 Atrovent HFA 17 mcg/actuation HFA aerosol inhaler 1 puff INHALATION QID Qty: 12.9 RF: 5 fluoxetine 20 mg capsule 20 mg PO DAILY Qty: 30 RF: 2 lorazepam 0.5 mg tablet 0.5 mg PO DAILY PRN (Reason: anxiety) Qty: 42 RF: 0 prednisone 20 mg tablet 20 mg PO DAILY Qty: 5 RF: 0 azithromycin 500 mg tablet 500 mg PO DAILY 5 Days Qty: 5 RF: 0 Spiriva Respimat 2.5 mcg/actuation mist 2 puff INHALATION DAILY Qty: 4 RF: 3 Advair HFA 115-21 mcg/actuation HFA aerosol inhaler 2 puff INHALATION BID Qty: 12 RF: 3 Zyrtec 10 mg Tablet 10 mg PO DAILY RF: 0 amlodipine 5 mg tablet 5 mg PO DAILY Qty: 30 RF: 0 prednisone 10 mg tablet See Rx Instructions .ROUTE .COMPLEX Qty: 30 RF: 0 Discharge Orders: Discharge ED (Routine); Ordered 02/24/20 Ordered By: Akira David Discharge Diet: Usual diet Discharge Activity: Increase activity as tolerated Patient Instructions: Cellulitis (ED) Activity Restrictions/Additional Instructions: Home and rest. Take medication as prescribed. Do not take more than medication as prescribed. Follow-up with primary care for refills. Take antibiotic as directed. Return to emergency department for new concerns. Coding Level of Care Code ED Licensed Clinical Social Worker for Lisa Ibrahim
[2020-02-24] MEDS: sulfamethoxazole-trimeth DS 160-800 mg Tablet 1 TAB PO (08:32)
[2020-02-24] MEDS: LORazepam 1 mg Tablet PO (08:41)
[2020-02-24 08:47] VITALS: BP 190/101; PULSE 91; RESP 18; O2SAT 97
== END 2020-02-24 08:53 | disposition home or self-care (01) ==
PROVIDERS: Emergency Provider Nurse Practitioner Family
DX: L03.211 Cellulitis of face (principal); F41.9 Anxiety disorder, unspecified; F17.210 Nicotine dependence, cigarettes, uncomplicated
CPT/HCPCS: 12345; 99282; 99283

== ENCOUNTER 2020-02-27 11:19 | Inpatient (IN) | payer SELFPAY ==
[2020-02-27] VITALS (7 sets, daily range): BP systolic 154–172; BP diastolic 84–107; PULSE 77–96; RESP 16–19; TEMP 36.7–37; O2SAT 93–99; BMI 25.6
--- NOTE | 2020-02-27 11:49 | ECG_ITS ---
[facility] Test Date: 2020-02-27 Pat Name: Ines Gallegos Department: Room: Gender: Female Kids Activities Coach: : 1965 Requested By: Rian Amaro I Order Number: [id number] Reading MD: ZULEMA CROCKETT Measurements Intervals [place] Rate: 74 P: 67 MO: 140 QRS: 8 QRSD: 106 T: 69 QT: 379 QTc: 423 Interpretive Statements SINUS RHYTHM NONSPECIFIC T-WAVE ABNORMALITY Compared to ECG 10/18/2019 01:12:37 T-wave abnormality now present Incomplete right bundle-branch block no longer present Myocardial infarct finding no longer present Electronically Signed On 02-27-2020 15:47:13 LAMP DECORATOR by ZULEMA CROCKETT [id number]
--- NOTE | 2020-02-27 11:49 | XRR_ITS ---
PROCEDURE INFORMATION: Exam: XR Chest, 1 View Exam date and time: 02/27/2020 11:51 AM Age: 54 years old Clinical indication: Other: Anxiety TECHNIQUE: Imaging protocol: XR of the chest Views: 1 view. COMPARISON: CR XR chest 1V portable [id number] 01/23/2020 9:55 PM FINDINGS: Lungs: Unremarkable. No consolidation. Pleural space: Unremarkable. No pleural effusion. No pneumothorax. Heart/Mediastinum: Unremarkable. No cardiomegaly. Bones/joints: Unremarkable. XR/XR chest 1V portable [id number] IMPRESSION: No acute findings.
--- NOTE | 2020-02-27 11:51 | W.ED.PSYCH ---
HPI - Psych General: Chief Complaint: Psychiatric Symptoms Stated Complaint: PSYCH EVAL Time Seen by Provider: 02/27/20 11:27 Source: patient and family (daughter) Mode of arrival: ambulatory Limitations: no limitations History of Present Illness: HPI Narrative: This is a 54-year-old female patient who has a longstanding history of anxiety. A few months ago she was placed on Ativan and she states that she was not told that she could get addicted to the medication. 3 weeks ago she stopped taking the medication and went into withdrawal. Since then she has been having worsening anxiety and is now having some depression symptoms. She has loss of energy loss of appetite lays around in the house all day has significant tremors. Because of all the symptoms she will brought in here to be evaluated and she would like to be admitted to the neuropsychiatric unit for medication adjustment. MD complaint: feels depressed Onset (ago): week(s) Duration: constant and getting worse History of same: Yes Relieving factors: none Exacerbating factors: none Associated symptoms: Reports depression; Deny auditory hallucinations, visual hallucinations, delusions, homicidal ideation, suicidal ideation or racing thoughts Review of Systems General: Reports: 10 or more systems reviewed and unremarkable except in HPI and below Const: Denies: fever(s), chills or body aches Eyes: Denies: change in vision or blurry vision ENMT: Denies: throat pain, enlarged tonsils, odynophagia, hoarseness, mouth pain or swelling of lips/tongue Card: Denies: palpitations, irregular heart rhythm, edema or swelling of feet/ankles Resp: Denies: dyspnea, productive cough or non-productive cough GI: Denies: abdominal pain, nausea or vomiting : Denies: flank pain, difficulty voiding, dysuria, urinary frequency, urinary urgency or urinary hesitancy Musc: Denies: neck pain, back pain or extremity swelling Skin/Breast: Denies: rash, pruritus or erythema Neuro: Denies: headache(s), numbness in extremities or weakness in extremities Psych: Reports: depression; Denies: visual hallucinations, auditory hallucinations, suicidal ideation or homicidal ideation Endo: Denies: polyuria, polydipsia or tired all the time PFS ED PFSH: Social History Smoking and tobacco status: current every day smoker cigarettes Packs smoked per day: 0.5 Years cigarettes smoked: 40 [ Other cigarette details: Hx of 1 PPD x 40 Years - Trying to quit ] Quit status (tobacco): has tried quititng Number of times tried to quit tobacco: 5 Second hand smoke exposure: Yes Alcohol intake: never Lives independently: Yes Household members: spouse Marital status: Current occupational status: unemployed History of recent travel: No Current gender identity: Female Physical Exam Const: COMMON NORMALS: no acute distress, average body habitus, patient oriented x3, no limitations, healthy appearing, alert and well nourished HENMT: COMMON NORMALS: normocephalic, atraumatic and moist oral mucous membranes HEAD & SCALP: normocephalic and atraumatic Neck/C-Spine: COMMON NORMALS: no meningeal signs and no JVD Resp: COMMON NORMALS: normal respiratory effort, No retractions, No use of accessory muscles, clear to auscultation bilaterally and percussion normal AUSCULTATION: clear to auscultation bilaterally PERCUSSION: percussion normal Cardio: COMMON NORMALS: no JVD, regular rate, regular rhythm, S1 normal heart sound present, S2 normal heart sound present, No gallops present (Cardio), No clicks present (Cardio), No murmurs present (Cardio), No rub (Cardio) and Peripheral pulses 2+ throughout RATE: regular rate RHYTHM: regular rhythm HEART SOUNDS: S1 normal heart sound present and S2 normal heart sound present PERIPHERAL PULSES: Peripheral pulses 2+ throughout GI: COMMON NORMALS: Normal to inspection, nondistended, normoactive bowel sounds present, Soft to palpation, non-tender, No hepatosplenomegaly present, no masses and no bruits PALPATION: Yes Soft to palpation and Yes No hepatosplenomegaly present Extremity: COMMON NORMALS: normal to inspection, full ROM, capillary refill normal, no calf tenderness and no pedal edema Neuro: COMMON NORMALS: patient oriented x3 SENSORIUM/ORIENTATION: Yes alert MENINGEAL SIGNS: Yes no meningeal signs Psych: THOUGHT CONTENT: No delusions Skin: COMMON NORMALS: no rashes or lesions noted, no wounds, turgor normal, no jaundice, no petechiae and no mottling GENERAL SKIN EXAM: no rashes or lesions noted and turgor normal MDM - Psych MDM Narrative: Medical decision making narrative: 54-year-old female with severe anxiety and depressive symptoms. She is medically cleared and is admitted to the neuropsychiatric unit for further evaluation and management. Medical Records: Attestation: I reviewed the patient's medical records. Lab Data: Attestation: I reviewed the patient's lab results. Labs: Lab Results 02/27/20 02/27/20 02/27/20 Range/Units 11:50 11:50 11:50 WBC (4.0-10.0) 10^3/ uL RBC (4.1-5.3) 10^6/u L Hgb (11.5-15.3) g/dL Hct (37.0-47.0) % MCV (81-99) fL MCH (28.0-34.0) pg MCHC (30.0-36.0) g/dL RDW (12.1-15.1) % Plt Count (130-400) 10^3/c mm MPV (7.4-10.4) fL Neut % (Auto) % Lymph % (Auto) % [place] % (Auto) % Eos % (Auto) % Baso % (Auto) % Neut # (Auto) (1.8-7.7) 10^3/u L Lymph # (Auto) (0.8-4.8) 10^3/u L [place] # (Auto) (0.2-0.9) 10^3/u L Eos # (Auto) (0.0-0.8) 10^3/u L Baso # (Auto) (0.0-0.1) 10^3/u L Nucleated RBC % (a uto) % Nucleated RBCs # /100WBC Sodium (136-145) mmol/L Potassium (3.5-5.1) mmol/L Chloride (98-107) mmol/L Carbon Dioxide (22-29) mmol/L Anion Gap (5-19) BUN (6-20) mg/dL Creatinine (0.5-0.9) mg/dL GFR Calculation (90-130) mL/min Glucose (65-115) mg/dL Calculated Osmolal ity (285-295) mOsm/k g Calcium (8.5-10.5) mg/dL Total Bilirubin (0.15-1.2) mg/dL AST (0-32) U/L ALT (0-33) U/L Alkaline Phosphata se (35-105) IU/L Total Protein (6.6-8.7) g/dL Albumin (3.5-5.2) g/dL Globulin (1.3-4.6) g/dL TSH (0.27-4.20) uIU/ mL HCG, Qual Negative (Negative) Urine Color Yellow (Yellow) Urine Appearance Sl hazy (CLEAR) Urine pH 5 (5-7) Ur Specific Gravit y 1.025 (1.005-1.030) Urine Protein Neg (Negative) Urine Glucose (UA) Norm (Normal) Urine Ketones 1+ H (Negative) Urine Blood Trace H (Negative) Urine Nitrate Negative (Negative) Urine Bilirubin 1+ H (Negative) Urine Urobilinogen 1 H (Negative) mg/dL Ur Leukocyte Nataly ase Negative (Negative) Urine RBC Rare (0-2) /hpf Urine WBC Rare (0-5) /hpf Ur Squamous Epith Cells 5-10 H (0-5) /hpf Amorphous Sediment Not Reportable Urine Bacteria Trace (NONE) /hpf Hyaline Casts 15-25 H /lpf Urine Mucus 2+ /hpf Salicylates (3-10) mg/dL Urine Opiates Scre en Negative (Negative) ng/mL Acetaminophen (10-30) ug/mL Ur Barbiturates Sc reen Negative (Negative) ng/mL Ur Phencyclidine S crn Negative (Negative) ng/mL Ur Amphetamines Sc reen Negative (Negative) ng/mL U Benzodiazepines Scrn Positive H (Negative) ng/mL Urine Cocaine Scre en Negative (Negative) ng/mL U Marijuana (THC) Screen Negative (Negative) ng/mL Ethyl Alcohol (0-10) mg/dL 02/27/20 02/27/20 Range/Units 12:15 12:15 WBC 8.6 (4.0-10.0) 10^3/ uL RBC 4.98 (4.1-5.3) 10^6/u L Hgb 14.7 (11.5-15.3) g/dL Hct 44.8 (37.0-47.0) % MCV 90.0 (81-99) fL MCH 29.5 (28.0-34.0) pg MCHC 32.8 (30.0-36.0) g/dL RDW 12.3 (12.1-15.1) % Plt Count 279 (130-400) 10^3/c mm MPV 11.4 H (7.4-10.4) fL Neut % (Auto) 57.1 % Lymph % (Auto) 29.0 % [place] % (Auto) 8.2 % Eos % (Auto) 4.6 % Baso % (Auto) 0.9 % Neut # (Auto) 4.89 (1.8-7.7) 10^3/u L Lymph # (Auto) 2.5 (0.8-4.8) 10^3/u L [place] # (Auto) 0.7 (0.2-0.9) 10^3/u L Eos # (Auto) 0.4 (0.0-0.8) 10^3/u L Baso # (Auto) 0.1 (0.0-0.1) 10^3/u L Nucleated RBC % (a uto) 0 % Nucleated RBCs # 0.0 /100WBC Sodium 135 L (136-145) mmol/L Potassium 4.1 (3.5-5.1) mmol/L Chloride 100 (98-107) mmol/L Carbon Dioxide 22 (22-29) mmol/L Anion Gap 17.1 (5-19) BUN 13 (6-20) mg/dL Creatinine 1.2 H (0.5-0.9) mg/dL GFR Calculation 46.6 L (90-130) mL/min Glucose 108 (65-115) mg/dL Calculated Osmolal ity 281 L (285-295) mOsm/k g Calcium 10.1 (8.5-10.5) mg/dL Total Bilirubin 0.2 (0.15-1.2) mg/dL AST 17 (0-32) U/L ALT 18 (0-33) U/L Alkaline Phosphata se 131 H (35-105) IU/L Total Protein 7.7 (6.6-8.7) g/dL Albumin 4.7 (3.5-5.2) g/dL Globulin 3.0 (1.3-4.6) g/dL TSH 1.13 (0.27-4.20) uIU/ mL HCG, Qual (Negative) Urine Color (Yellow) Urine Appearance (CLEAR) Urine pH (5-7) Ur Specific Gravit y (1.005-1.030) Urine Protein (Negative) Urine Glucose (UA) (Normal) Urine Ketones (Negative) Urine Blood (Negative) Urine Nitrate (Negative) Urine Bilirubin (Negative) Urine Urobilinogen (Negative) mg/dL Ur Leukocyte Nataly ase (Negative) Urine RBC (0-2) /hpf Urine WBC (0-5) /hpf Ur Squamous Epith Cells (0-5) /hpf Amorphous Sediment Urine Bacteria (NONE) /hpf Hyaline Casts /lpf Urine Mucus /hpf Salicylates < 0.3 L (3-10) mg/dL Urine Opiates Scre en (Negative) ng/mL Acetaminophen < 5.0 L (10-30) ug/mL Ur Barbiturates Sc reen (Negative) ng/mL Ur Phencyclidine S crn (Negative) ng/mL Ur Amphetamines Sc reen (Negative) ng/mL U Benzodiazepines Scrn (Negative) ng/mL Urine Cocaine Scre en (Negative) ng/mL U Marijuana (THC) Screen (Negative) ng/mL Ethyl Alcohol < 10 (0-10) mg/dL Imaging Data^: CXR: Attestation: I personally reviewed and interpreted this imaging study as follows: Radiologist's impression: [address] [address] XRay Report Signed Patient: Ines Gallegos #: [id number] : 1965Acct#:[id number] Age/Sex: 54 / FADM Date: 02/27/20 Loc: [facility]/Bed: [facility] Attending Dr: Ignacio Jeffrey MD Ordering Provider/Ordering MD: Rian Amaro MD, [facility] [place] Date of Service: 02/27/20 Procedure(s): XR chest 1V portable [id number] Accession Number(s): [id number] Report Number: [id number] PROCEDURE INFORMATION: Exam: XR Chest, 1 View Exam date and time: 02/27/2020 11:51 AM Age: 54 years old Clinical indication: Other: Anxiety TECHNIQUE: Imaging protocol: XR of the chest Views: 1 view. COMPARISON: CR XR chest 1V portable [id number] 01/23/2020 9:55 PM FINDINGS: Lungs: Unremarkable. No consolidation. Pleural space: Unremarkable. No pleural effusion. No pneumothorax. Heart/Mediastinum: Unremarkable. No cardiomegaly. Bones/joints: Unremarkable. XR/XR chest 1V portable [id number] IMPRESSION: No acute findings. Dictated By:Ferdinand Lee Signed By:Ferdinand LeeSigncynthia Date/Time:02/27/20 1320 DD/ 1319 EKG Data^: EKG 1: Attestation: I personally reviewed and interpreted this EKG as follows: EKG interpretation date: 02/27/20 EKG interpretation time: 12:32 Prior EKG tracings: not available for review Interpretation: Normal sinus rhythm. Heart rate [address] changes. Discharge Plan Discharge Patient Disposition: Admitted As Inpatient Admit Provider: Ignacio Jeffrey Clinical Impression: Anxiety, Depression Condition: Stable Coding Level of Care Code ED Medical Officer Psychiatry for Chg Fwd Exam Comprehensive
[2020-02-27 12:14] LABS: HCG Qualitative Urine. Negative (Negative)
[2020-02-27 12:16] LABS: Add Urine Microscopic? YES; Bilirubin Urine 1+ (Negative); Blood Urine Trace (Negative); Glucose Urine UA Norm (Normal); Ketones Urine 1+ (Negative); Leukocyte Esterase Urine Negative (Negative); Nitrate Urine Negative (Negative); Protein Urine Neg (Negative); Specific Gravity, Urine 1.025 (1.005-1.030); Urine Appearance SL Hazy (CLEAR); Urine Color Yellow (Yellow); Urobilinogen Urine 1 mg/dL (Negative); pH Urine 5 (5-7)
[2020-02-27 12:26] LABS: Basophils # 0.1 10^3/uL (0.0-0.1); Basophils % 0.9 %; Eosinophils # 0.4 10^3/uL (0.0-0.8); Eosinophils % 4.6 %; Hematocrit 44.8 % (37.0-47.0); Hemoglobin 14.7 g/dL (11.5-15.3); Lymphocytes # 2.5 10^3/uL (0.8-4.8); Mean Corpuscular HGB Conc 32.8 g/dL (30.0-36.0); Mean Corpuscular Hemoglobin 29.5 pg (28.0-34.0); Mean Platelet Volume 11.4 fL (7.4-10.4); Monocytes # 0.7 10^3/uL (0.2-0.9); Monocytes % 8.2 %; Neutrophils # 4.89 10^3/uL (1.8-7.7); Neutrophils % 57.1 %; Nucleated Red Blood Cells % 0 %; Platelet Count 279 10^3/cmm (130-400); Red Blood Count 4.98 10^6/uL (4.1-5.3); Red Cell Distribution Width 12.3 % (12.1-15.1); White Blood Count 8.6 10^3/uL (4.0-10.0)
[2020-02-27 12:28] LABS: Amphetamines Screen Urine Negative (Negative); Barbiturates Screen Urine Negative (Negative); Benzodiazepines Screen Urine Positive (Negative); Cocaine Screen Urine Negative (Negative); Opiate Screen Urine Negative (Negative); PCP Screen Urine Negative (Negative); THC Screen Urine Negative (Negative)
[2020-02-27 12:31] LABS: RBC Urine RARE /hpf (0-2); WBC Urine RARE /hpf (0-5)
[2020-02-27 12:32] LABS: Bacteria Urine TRACE /hpf; Hyaline Casts Urine 15-25 /lpf; Mucus Urine 2+ /hpf
[2020-02-27 12:33] LABS: Add Urine Culture? No
[2020-02-27 12:56] LABS: Alanine Aminotransferase 18 U/L (0-33); Albumin Level 4.7 g/dL (3.5-5.2); Alkaline Phosphatase 131 IU/L (35-105); Anion Gap 17.1 (5-19); Aspartate Amino Transferase 17 U/L (0-32); Blood Urea Nitrogen 13 mg/dL (6-20); Calcium 10.1 mg/dL (8.5-10.5); Carbon Dioxide 22 mmol/L (22-29); Chloride 100 mmol/L (98-107); Glomerular Filtration Rate 46.6 mL/min (90-130); Glucose 108 mg/dL (65-115); Osmolality Calculated 281 mOsm/kg (285-295); Potassium 4.1 mmol/L (3.5-5.1); Sodium 135 mmol/L (136-145); Thyroid Stimulating Hormone 1.13 uIU/mL (0.27-4.20); Total Bilirubin 0.2 mg/dL (0.15-1.2); Total Protein 7.7 g/dL (6.6-8.7)
[2020-02-27 13:18] LABS: Acetaminophen < 5.0 ug/mL (10-30); Salicylate < 0.3 mg/dL (3-10)
[2020-02-27 13:19] LABS: Alcohol Level < 10 mg/dL (0-10)
[2020-02-27] MEDS: nicotine 2 mg Gum BUCCAL (17:23)
[2020-02-27] MEDS: albuterol 8 gm MDI 2 PUFF INHALATION (18:49)
[2020-02-27] MEDS: hyDROXYzine 25 mg Capsule 50 MG PO (20:37)
[2020-02-27] MEDS: trazodone 50 mg Tablet PO (20:37)
--- NOTE | 2020-02-27 22:39 | PC.NURSE ---
PM ASSESSMENT-- TALKATIVE , CONCERNED ABOUT HAVING WITHDRAWALS CONCERNING NO ATIVAN. SAYS SHE FEELS TINGLY AND JITTERY. TOOK PM MEDS TO HELP REST, RESP EVEN AND UNLABORED LATER.
[2020-02-28] MEDS: albuterol 8 gm MDI 2 PUFF INHALATION ×3 (04:49→16:06)
[2020-02-28 06:00] VITALS: BP 150/88; PULSE 85; RESP 5; TEMP 36.8; O2SAT 96
[2020-02-28 08:20] VITALS: PULSE 85; RESP 16; O2SAT 96
[2020-02-28] MEDS: nicotine 2 mg Gum BUCCAL ×2 (08:36→11:37)
--- NOTE | 2020-02-28 10:29 | P.HP_ITS ---
Providers/Chief Complaint Admitting Physician: Ignacio Jeffrey MD Chief Complaint: PSYCH EVAL HPI NPU History of Present Illness Ines Gallegos is a 54 year old female who presented to the emergency department with the following report: Chief Complaint: Psychiatric Symptoms Stated Complaint: PSYCH EVAL Time Seen by Provider: 02/27/20 11:27 Source: patient and family (daughter) Mode of arrival: ambulatory Limitations: no limitations History of Present Illness: HPI Narrative: This is a 54-year-old female patient who has a longstanding history of anxiety. A few months ago she was placed on Ativan and she states that she was not told that she could get addicted to the medication. 3 weeks ago she stopped taking the medication and went into withdrawal. Since then she has been having worsening anxiety and is now having some depression symptoms. She has loss of energy loss of appetite lays around in the house all day has significant tremors. Because of all the symptoms she will brought in here to be evaluated and she would like to be admitted to the neuropsychiatric unit for medication adjustment. complaint: feels depressed Onset (ago): week(s) Duration: constant and getting worse History of same: Yes Relieving factors: none Exacerbating factors: none Associated symptoms: Reports depression; Deny auditory hallucinations, visual hallucinations, delusions, homicidal ideation, suicidal ideation or racing thoughts. Was admitted to the neuropsychiatric unit for definitive treatment of those issues. On the unit she was clear that she was already through the withdrawal of the Ativan and was little nervous about what happened. She denied having any significant issues or desire to stay. She had never endorsed suicidal thinking and therefore was insistent that she be allowed to discharge. She was open and willing to allow one day of observation but outside of that she reported she had no interest in being here. We reviewed her psychiatric evaluation from 01/25/2020 and she agreed that it was an accurate assessment of her situation. An excerpt is included below for details. Per her 01/25/2020 [facility] [place] outpatient eval: [facility] [place] History and Physical Time In: 09:30 Time Out: 10:15 Chief Complaint: Anxiety History of Present Illness: This is a 54-year-old female with a history of generalized anxiety disorder and nicotine dependence coming in today describing a history consistent with generalized anxiety that she says she is never been on medications for and would like to pursue treatment. She tells me that she is always been scared of everything, but especially including the of her kids or her grandkids or herself too early. She feels like she worries constantly about not only mortality but other life concerns and has frequent panic attacks. She does have a history of one depressive episode that lasted for about 2 months when she thought she had cancer 13 years ago in which she says she lost her appetite, had no motivation, and was very depressed and frequently tearful. She says she has not had an episode that lasted that long since then, but she does on occasion have 1 to 2-week episodes when she is been overly anxious. Her most recent anxiety provoking incident is at her doctor told her that she had mild emphysema and that he recommended quitting smoking immediately. She is been a pack-a-day smoker since he was 11 years old. She rates her motivation to quit smoking today and 8 out of 10 and she says I know if I do not quit it will kill me but I really like nicotine . Her main motivation to quit is not only her own mortality and worsening emphysema, but she wants to be there kids and grandkids. In addition, she had to go on predn isone a number of times to decrease inflammation related to emphysema and the prednisone makes her extremely anxious and worsens her overall condition so this is also in motivator. She denies suicidal thoughts and she denies any other substance use such as alcohol or drugs. We discussed smoking cessation today for at least 15 minutes in addition to her anxiety and history of depression symptoms. She is quite nervous about taking medications so we discussed the risks and benefits of treating her nicotine addiction versus continuing to smoke from a motivational interviewing standpoint. History Past Psychiatric History: No admissions, suicide attempts, or self-harm or past treatment. She has had Xanax and Ativan prescribed on an as needed basis. Family History: Noncontributory Past Medical History: COPD, high blood pressure Substance Use History: Nicotine: Smokes 1 pack/day since age 11 years old. Social History: She is been to her current for a number of years and he is an alcoholic. Please see assessment for more details. Meds NPU Home Medications Medication Instructions Recorded Confirmed Last Taken Type cetirizine [Zyrtec] 10 mg PO DAILY@199905/08/19 02/27/20 02/26/20 History famotidine 10 mg tablet 10 mg PO DAILY@0800 PRN 12/01/19 02/27/20 Unknown History propranolol 20 mg tablet 20 mg PO BID PRN #60 tab 01/25/20 02/27/20 Unknown Rx varenicline 1 mg tablet 1 mg PO BID #56 tab 01/25/20 02/27/20 Unknown Rx Atrovent HFA 1 puff INHALATION QID@08,13,17 02/27/20 02/27/20 02/27/20 History Bactrim DS 1 tab PO BID@08,20 02/27/20 02/27/20 02/26/20 History Spiriva Respimat 2 puff INHALATION DAILY@0800 02/27/20 02/27/20 Unknown History amlodipine 5 mg PO DAILY@0800 02/27/20 02/27/20 Unknown History fluoxetine 20 mg PO DAILY@0730 02/27/20 02/27/20 02/26/20 History nicotine 1 patch TRANSDERMA DAILY@0800 02/27/20 02/27/20 Unknown History trazodone 50 mg PO BEDTIME PRN 30 Days #30 02/28/20 Unknown Rx tab ipratropium bromide [Atrovent HFA] 2 inh INHALATION Q8H PRN #12.9 g 03/05/20 Unknown Rx Allergies Allergy/AdvReac Type Severity Reaction Status Date / Time metronidazole [From Flagyl] Allergy Severe ADR-Vomitin Verified 02/21/20 16:28 g codeine Allergy Intermediate ALGY-Anaphy Verified 02/21/20 16:28 laxis doxycycline Allergy Intermediate ALGY-Rash Verified 02/21/20 16:28 lisinopril Allergy Intermediate cough, Verified 02/21/20 16:28 swelling ibuprofen Allergy Unknown Unknown Verified 02/21/20 16:28 PFSH NPU PFSH: Social History Smoking and tobacco status: current every day smoker cigarettes Packs smoked per day: 0.5 Years cigarettes smoked: 40 [ Other cigarette details: Hx of 1 PPD x 40 Years - Trying to quit ] Quit status (tobacco): has tried quititng Number of times tried to quit tobacco: 5 Second hand smoke exposure: Yes Alcohol intake: never Lives independently: Yes Household members: spouse Marital status: Current occupational status: unemployed History of recent travel: No Current gender identity: Female Mental Status Exam MSE Comments: This is a well-nourished, well-developed white female with adequate respiratory contact. No abnormal movements. Cooperative with exam in no acute distress. Speech was normal rate and volume. Mood described as anxious, affect. Thought process organized. Thought content: Patient denied any suicidal or homicidal ideations, there were no delusions reported noted, she denied any auditory or visual hallucinations. Attention and concentration were intact and memory appeared reliable but none were formally tested. She is alert and oriented ?3. Insight and judgment were fair. Vitals/I&O/Wt Last Vital Signs Temp 98.3 F 02/28/20 06:00 Pulse 85 02/28/20 08:20 Resp 16 02/28/20 08:20 BP 150/88 02/28/20 06:00 Pulse Ox 96 02/28/20 08:20 Weight last 48 hrs Weight 63.503 kg Data NPU : 02/27/20 12:15 02/27/20 12:15 A&P Assessment and plan (1) Depression: Status: Acute Qualifiers: Depression Type: unspecified Qualified Code(s): F32.9 - Major depressive disorder, single episode, unspecified (2) Generalized anxiety disorder: Status: Acute (3) Nicotine dependence, unspecified, uncomplicated: Status: Acute (4) Anxiety: Status: Acute (5) Cigarette smoker motivated to quit: Status: Acute (6) Essential hypertension with goal blood pressure less than 130/80: Status: Acute (7) Cramping of feet: Status: Acute (8) COPD (chronic obstructive pulmonary disease): Status: Acute Additional A&P Information This is a 54-year-old white female with a long history of depression and anxiety was recently placed on Ativan and was coming off of Ativan and having anxiety and not realizing it would be a dependency who presents for evaluation for a lternative treatment strategy. 1. Continue current medication. We'll continue to offer alternative medication for anxiety. 2. Continue every 15 minute checks for safety. 3. Continue CIWA for benzo/alcohol withdrawal. 4. Patient is safe from withdrawal in the morning we will discharge for her r equest. Involuntary Hold Information 96 Hour Hold: 96 Hour Involuntary Admission: No Attestations NPU Medical Necessity Statement*: Inpatient hospitalization is medically necessary in the clinically appropriate intervention at this time. We will monitor medications and make changes as indicated. She will be in the hospital for at least one more night. Tentative discharge tomorrow. Coding Level of Care Code Acute Gas Maker for Chg Fwd Diagnoses Depression F32.9 Depression Type: unspecified Generalized anxiety disorder F41.1 Nicotine dependence, unspecified, uncomplicated F17.200 Anxiety F41.9 Cigarette smoker motivated to quit F17.210 Essential hypertension with goal blood pressure less than 130/80 I10 Cramping of feet R25.2 COPD (chronic obstructive pulmonary disease) J44.9
[2020-02-28] MEDS: acetaminophen 325 mg Tablet 650 MG PO (13:46)
--- NOTE | 2020-02-28 14:34 | P.DS_ITS ---
Reason for Visit Reason for Visit: PSYCH EVAL Brief History: History of Present Illness Ines Gallegos is a 54 year old female who presented to the emergency department with the following report: Chief Complaint: Psychiatric Symptoms Stated Complaint: PSYCH EVAL Time Seen by Provider: 02/27/20 11:27 Source: patient and family (daughter) Mode of arrival: ambulatory Limitations: no limitations History of Present Illness: HPI Narrative: This is a 54-year-old female patient who has a longstanding history of anxiety. A few months ago she was placed on Ativan and she states that she was not told that she could get addicted to the medication. 3 weeks ago she stopped taking the medication and went into withdrawal. Since then she has been having worsening anxiety and is now having some depression symptoms. She has loss of energy loss of appetite lays around in the house all day has significant tremors. Because of all the symptoms she will brought in here to be evaluated and she would like to be admitted to the neuropsychiatric unit for medication adjustment. MD complaint: feels depressed Onset (ago): week(s) Duration: constant and getting worse History of same: Yes Relieving factors: none Exacerbating factors: none Associated symptoms: Reports depression; Deny auditory hallucinations, visual hallucinations, delusions, homicidal ideation, suicidal ideation or racing thoughts. Was admitted to the neuropsychiatric unit for definitive treatment of those issues. On the unit she was clear that she was already through the withdrawal of the Ativan and was little nervous about what happened. She denied having any significant issues or desire to stay. She had never endorsed suicidal thinking and therefore was insistent that she be allowed to discharge. She was open and willing to allow one day of observation but outside of that she reported she had no interest in being here. We reviewed her psychiatric evaluation from 01/25/2020 and she agreed that it was an accurate assessment of her situation. An excerpt is included below for details. Per her 01/25/2020 [facility] outpatient eval: [facility] History and Physical Time In: 09:30 Time Out: 10:15 Chief Complaint: Anxiety History of Present Illness: This is a 54-year-old female with a history of generalized anxiety disorder and nicotine dependence coming in today describing a history consistent with generalized anxiety that she says she is never been on medications for and would like to pursue treatment. She tells me that she is always been scared of everything, but especially including the of her kids or her grandkids or herself too early. She feels like she worries constantly about not only mortality but other life concerns and has frequent panic attacks. She does have a history of one depressive episode that lasted for about 2 months when she thought she had cancer 13 years ago in which she says she lost her appetite, had no motivation, and was very depressed and frequently tearful. She says she has not had an episode that lasted that long since then, but she does on occasion have 1 to 2-week episodes when she is been overly anxious. Her most recent anxiety provoking incident is at her doctor told her that she had mild emphysema and that he recommended quitting smoking immediately. She is been a pack-a-day smoker since he was 11 years old. She rates her motivation to quit smoking today and 8 out of 10 and she says I know if I do not quit it will kill me but I really like nicotine . Her main motivation to quit is not only her own mortality and worsening emphysema, but she wants to be there kids and grandkids. In addition, she had to go on prednisone a number of times to decrease inflammation related to emphysema and the prednisone makes her extremely anxious and worsens her overall condition so this is also in motivator. She denies suicidal thoughts and she denies any other substance use such as alcohol or drugs. We discussed smoking cessation today for at least 15 minutes in addition to her anxiety and history of depression symptoms. She is quite nervous about taking medications so we discussed the risks and benefits of treating her nicotine addiction versus continuing to smoke from a motivational interviewing standpoint. History Past Psychiatric History: No admissions, suicide attempts, or self-harm or past treatment. She has had Xanax and Ativan prescribed on an as needed basis. Family History: Noncontributory Past Medical History: COPD, high blood pressure Substance Use History: Nicotine: Smokes 1 pack/day since age 11 years old. Social History: She is been to her current for a number of years and he is an alcoholic. Please see assessment for more details. Hospital Course Hospital Course Ines presented to the emergency department with anxiety and significant withdrawal from benzodiazepines. She was admitted to the neuropsychiatric unit for definitive treatment of those issues. On the unit she quickly acclimated to the individual, group and milieu therapies provided. She was working with her outpatient doctor and was not interested in additional medications. She had already gone through the majority of the withdrawal and she was having anxiety about having a seizure or something of that nature. She was able to contract for safety. During the hospitalization she had routine laboratory studies that were within normal limits except for a few outliers. She also had a general medical evaluation was also within normal limits and revealed no new acute processes. Discharge summary: At the time of discharge she was asked to lethality or psychosis. Her mood and anxiety were well managed. She endorsed the plan to avoid all drugs of abuse and follow-up with outpatient treatment per the treatment team's recommendatio ns. She was evaluated and deemed to be absent credible lethality and had achieved maximum benefit from inpatient hospitalization, so she was discharged. Involuntary Hold Information 96 Hour Hold: 96 Hour Involuntary Admission: No Mental Status Exam 2 MSE Comments: This is a well-nourished, well-developed white female with adequate respiratory contact. No abnormal movements. Cooperative with exam in no acute distress. Speech was normal rate and volume. Mood described as anxious, affect. Thought process organized. Thought content: Patient denied any suicidal or homicidal ideations, there were no delusions reported noted, she denied any auditory or visual hallucinations. Attention and concentration were intact and memory appeared reliable but none were formally tested. She is alert and oriented ?3. Insight and judgment were fair. Discharge Data Data Completed and Pending: Completed Studies During Hospitalization Category Date Time Status XR chest 1V emily ble [id number] Urgent Exams 02/27/20 11:49 Completed Vitals: Last Vital Signs Temp 98.3 F 02/28/20 06:00 Pulse 85 02/28/20 08:20 Resp 16 02/28/20 08:20 BP 150/88 02/28/20 06:00 Pulse Ox 96 02/28/20 08:20 Discharge Plan Discharge Patient Disposition: Home Condition: Stable Prescriptions: New trazodone 50 mg Tablet 50 mg PO BEDTIME PRN (Reason: Sleep) 30 Days Qty: 30 RF: 1 Continued famotidine 10 mg tablet 10 mg PO DAILY@0800 PRN (Reason: STOMACH ISSUES) RF: 0 propranolol 20 mg tablet 20 mg PO BID PRN (Reason: anxiety) Qty: 60 RF: 2 Chantix 1 mg tablet 1 mg PO BID Qty: 56 RF: 2 cetirizine [Zyrtec] 10 mg Tablet 10 mg PO DAILY@1999 RF: 0 amlodipine 5 mg tablet 5 mg PO DAILY@08 RF: 0 Bactrim DS 800-160 mg tablet 1 tab PO BID@ RF: 0 nicotine 21 mg/24 hr patch 24 hour 1 patch TRANSDERMA DAILY@799 RF: 0 fluoxetine 20 mg capsule 20 mg PO DAILY@729 RF: 0 Atrovent HFA 17 mcg/actuation HFA aerosol inhaler 1 puff INHALATION QID@,, RF: 0 Spiriva Respimat 2.5 mcg/actuation mist 2 puff INHALATION DAILY@799 RF: 0 Discontinued lorazepam 0.5 mg tablet 0.5 mg PO DAILY@,, PRN (Reason: anxiety) RF: 0 No Action Atrovent HFA 17 mcg/actuation HFA aerosol inhaler 2 inh inhalation Q8H PRN (Reason: shortness of breath or wheezing) Qty: 12.9 RF: 3 Discharge Orders: Discharge Order (Routine); Ordered 02/28/20 Ordered By: Ignacio Jeffrey Referrals: [facility] [Outside] - 1-3 days (you will need to call about referral for individual therapy) Everton Matthews MD [Physician] - 04/03/20 11:30 am Discharge Diet: Regular Discharge Activity: Resume usual activity Patient Instructions: Trazodone (By mouth) Discharge Attestations NPU Time Spent in Discharge Care*: less than 30 min Specific Discharge Activities: Specific discharge activities: educating patient, discussing with skilled nursing case manager/social workers/dc planners, documenting/other paperwork and evaluating patient/reviewing data Coding Level of Care Code Acute Program Officer for Lisa Ibrahim
[2020-02-28 14:37] VITALS: PULSE 85; RESP 16; O2SAT 96
[2020-02-28 16:07] VITALS: PULSE 88; RESP 16; O2SAT 96
== END 2020-02-28 16:15 | disposition home or self-care (01) | DRG 880 ==
LOC: ER 11:43 → NP 13:16
PROVIDERS: Admitting Provider Psychiatry & Neurology Psychiatry; Emergency Provider Family Medicine; Visit Provider Psychiatry & Neurology Psychiatry
DX: F41.1 Generalized anxiety disorder (principal); F17.210 Nicotine dependence, cigarettes, uncomplicated; J44.9 Chronic obstructive pulmonary disease, unspecified; I10 Essential (primary) hypertension
CPT/HCPCS: 12345; 36415; 71045; 80053; 80306; 80307; 81001; 81025; 84443; 85025; 93005; 94640; 99284; J3535

== ENCOUNTER 2020-03-05 16:11 | Emergency (ER) | payer SELFPAY ==
[2020-03-05 16:19] VITALS: BP 176/84; PULSE 74; RESP 14; TEMP 37.1; O2SAT 96; BMI 25.6
--- NOTE | 2020-03-05 16:30 | ED_ITS ---
HPI - SOB/Dyspnea General: Chief Complaint: Shortness of Breath/Dyspnea Stated Complaint: SOB/NORMAL COPD, NEEDS BREATHING TREATMENT Time Seen by Provider: 03/05/20 16:25 History of Present Illness: HPI Narrative: Patient is very pleasant nondistressed 54-year-old female with a history of COPD. She states she is trying to wean off Ativan and she took half of her 20 mg propanolol which she has never taken before she states immediately after that she coughed and felt short of breath. She states that she used multiple albuterol breathing treatments but was out of her Atrovent. She also took 25 mg of Benadryl in a 10 mg prednisone thinking that would help. She does have mild expiratory wheezes. She is not in any distress no rash noted no chest pain. Advised would provide a DuoNeb treatment, 25 mg more Benadryl as well as 40 mg of Pepcid. She agrees with this plan. Discussed not taking any more propranolol and speaking to her provider for alternate benzodiazepine weaning therapies. She agrees. Associated symptoms: Deny abdominal pain, chest pain, extremity pain, fever(s), nausea, orthopnea, polydipsia, polyuria or vomiting Review of Systems Const: Denies: fever(s), chills, change in appetite or malaise Eyes: Denies: change in vision, blurry vision, eye discharge or eye redness ENMT: Denies: throat pain, uvular edema, odynophagia, mouth pain, dental pain, nasal congestion or sinus pain Card: Denies: chest pain, irregular heart rhythm, swelling of feet/ankles, dyspnea on exertion, orthopnea or leg pain with exertion Resp: Reports: dyspnea, non-productive cough and wheezing GI: Denies: abdominal pain, nausea, vomiting, diarrhea, constipation or fecal incontinence : Denies: flank pain, difficulty voiding, dysuria, urinary frequency, urinary urgency or urinary hesitancy Musc: Denies: neck pain, back pain, extremity pain or extremity swelling Skin/Breast: Denies: rash, pruritus, erythema, jaundice or dry skin Neuro: Denies: headache(s), numbness in extremities, weakness in extremities, sensory changes, lack of coordination or difficulty walking Psych: Denies: anxiety, depression, mood swings, panic attacks, sleeping less, suicidal ideation or homicidal ideation Endo: Denies: polyuria, polydipsia or tired all the time Reji/Lymph: Denies: easy bruising, petechiae or enlarged lymph nodes All/Imm: Denies: urticaria, throat swelling, facial swelling, acute wheezing or seasonal rhinorrhea PFSH ED PFSH: Social History Smoking and tobacco status: current every day smoker cigarettes Packs smoked per day: 0.5 Years cigarettes smoked: 40 [ Other cigarette details: Hx of 1 PPD x 40 Years - Trying to quit ] Quit status (tobacco): has tried quititng Number of times tried to quit tobacco: 5 Second hand smoke exposure: Yes Alcohol intake: never Lives independently: Yes Household members: spouse Marital status: Current occupational status: unemployed History of recent travel: No Current gender identity: Female Physical Exam Const: COMMON NORMALS: no acute distress, patient oriented x3, no limitations, healthy appearing, alert and well nourished GENERAL APPEARANCE: cooperative, comfortable, well kempt and well developed ORIENTATION/CONSCIOUSNESS: Yes awake, Yes oriented to person, Yes oriented to place and Yes oriented to time HENMT: COMMON NORMALS: normocephalic, atraumatic, hearing grossly normal bilaterally, external ears normal, EAC's normal, TM's normal bilaterally, Normal external nose present, Normal nasal mucous membranes and turbinates present, moist oral mucous membranes, oropharynx normal, dentition normal and gingiva normal HEAD & SCALP: normal to inspection, normocephalic and atraumatic FACE & SINUS: normal facial exam NOSE: Normal external nose present and Nor mal nasal mucous membranes and turbinates present EXTERNAL EAR: Yes external ears normal EXTERNAL AUDITORY CANAL: EAC's normal TYMPANIC MEMBRANE: TM's normal bilaterally MOUTH: Normal oral and palatal mucosa present, lip normal and tongue normal THROAT: no uvular edema Eye: COMMON NORMALS: Equal, round and reactive pupils present, EOMs intact bilaterally, conjunctivae normal, no scleral icterus and normal visual nicole by confrontation GENERAL EYE: appearance normal, both eyes and all related structures and normal light reflex VISUAL ACUITY: Yes acuity normal ALIGNMENT: Yes alignment normal PERIORBITAL: periorbital findings normal EYELID: eyelids normal CONJUNCTIVA: Yes conjunctivae normal SCLERA: sclerae normal PUPIL: Yes Equal, round and reactive pupils present and Yes Pupil accommodation reflex normal DIRECT OPHTHALMOSCOPY: Yes normal light reflex Neck/C-Spine: COMMON NORMALS: full ROM, no lymphadenopathy, supple, no meningeal signs and no JVD GENERAL: Yes normal visual inspection CAROTIDS: Yes normal carotid upstroke CERVICAL SPINE: Yes cervical ROM normal Lymph: LYMPHATIC: no lymphadenopathy noted Chest: COMMONS NORMALS: normal inspection of the chest CHEST: Yes Symmetrical chest wall rise Resp: COMMON NORMALS: normal respiratory effort and No use of accessory muscles EFFORT & INSPECTION: Yes able to speak in complete sentences and Yes symmetric chest movement AUSCULTATION: wheezes (mild) expiratory wheezes and throughout Cardio: COMMON NORMALS: no JVD, regular rate, regular rhythm, S1 normal heart sound present, S2 normal heart sound present, No murmurs present (Cardio) and Peripheral pulses 2+ throughout RATE: regular rate RHYTHM: regular rhythm HEART SOUNDS: S1 normal heart sound present and S2 normal heart sound present PERIPHERAL PULSES: Peripheral pulses 2+ throughout GI: COMMON NORMALS: Normal to inspection, nondistended, normoactive bowel sounds present and non-tender : COMMON NORMALS: Yes no CVA tenderness BLADDER/KIDNEY EXAM: Yes no CVA tenderness Back/Pelvis: COMMON NORMALS: no CVA tenderness, thoracic and lumbar spine normal to inspection, no thoracic nor lumbar tenderness and thoraco-lumbar ROM normal Extremity: COMMON NORMALS: normal to inspection, full ROM, capillary refill normal, no calf tenderness and no pedal edema Neuro: COMMON NORMALS: patient oriented x3, CN's II-XII intact bilaterally, moves all extremities, no focal motor deficits, no sensory deficits noted and gait normal SENSORIUM/ORIENTATION: Yes alert, Yes oriented to person, Yes oriented to place and Yes oriented to time MENINGEAL SIGNS: Yes no meningeal signs SPEECH: speech normal GAIT: Yes Normal gait present MOTOR EXAM: 5/5 motor strength present throughout, Pronator motor function not present and no tremor noted Psych: COMMON NORMALS: mental status grossly normal, Normal thought process present, cooperative, normal affect, speech normal and activity/motor behavior normal APPEARANCE: Yes well kempt SPEECH: Yes normal speech THOUGHT PROCESS: Normal thought process present THOUGHT CONTENT: Yes Normal thought content present INSIGHT: Good insight present (Psych) Skin: COMMON NORMALS: no rashes or lesions noted, no wounds, turgor normal and no jaundice GENERAL SKIN EXAM: no rashes or lesions noted and turgor normal Course ED course: Patient is reassured. She states she is feeling better and ready for discharge as she does not want to be in the hospital for prolonged period of time secondary to coronavirus. I will refill her Atrovent, advised follow-up with primary care tomorrow. Patient agrees. Return immediately for worsening of current condition or development of new symptoms. Vital Signs: Vital signs: Vital Signs Temperature 98.7 F 03/05/20 16:19 Pulse Rate 74 03/05/20 16:19 Respiratory Rate 14 03/05/20 16:19 Blood Pressure 176/84 03/05/20 16:19 Pulse Oximetry 96 03/05/20 16:19 MDM - SOB/Dyspnea MDM Narrative: Medical decision making narrative: COPD exacerbation, adverse reaction to propranolol, benzodiazepine withdrawal Discharge Plan Discharge Patient Disposition: Home Clinical Impression: COPD (chronic obstructive pulmonary disease) Condition: Stable Prescriptions: New Atrovent HFA 17 mcg/actuation HFA aerosol inhaler 2 inh inhalation Q8H PRN (Reason: shortness of breath or wheezing) Qty: 12.9 RF: 3 No Action famotidine 10 mg tablet 10 mg PO DAILY@0800 PRN (Reason: STOMACH ISSUES) RF: 0 propranolol 20 mg tablet 20 mg PO BID PRN (Reason: anxiety) Qty: 60 RF: 2 Chantix 1 mg tablet 1 mg PO BID Qty: 56 RF: 2 cetirizine [Zyrtec] 10 mg Tablet 10 mg PO DAILY@2000 RF: 0 amlodipine 5 mg tablet 5 mg PO DAILY@0800 RF: 0 Bactrim DS 800-160 mg tablet 1 tab PO BID@ RF: 0 nicotine 21 mg/24 hr patch 24 hour 1 patch TRANSDERMA DAILY@0800 RF: 0 fluoxetine 20 mg capsule 20 mg PO DAILY@0730 RF: 0 Atrovent HFA 17 mcg/actuation HFA aerosol inhaler 1 puff INHALATION QID@ RF: 0 Spiriva Respimat 2.5 mcg/actuation mist 2 puff INHALATION DAILY@0800 RF: 0 trazodone 50 mg Tablet 50 mg PO BEDTIME PRN (Reason: Sleep) 30 Days Qty: 30 RF: 1 Discharge Orders: Discharge ED (Routine); Ordered 03/05/20 Ordered By: Analisa Gonzalez Discharge Diet: Usual diet Discharge Activity: Resume usual activity Patient Instructions: Chronic Obstructive Pulmonary Disease (ED) Activity Restrictions/Additional Instructions: Do not take any more propranolol until you speak with your primary provider. You may take 50 mg of Benadryl at night as needed and 20 mg of Pepcid [id number] twice daily as needed Coding Level of Care Code ED Gelatin Plant Supervisor for Lisa Fwd Exam Comprehensive
[2020-03-05 16:40] VITALS: PULSE 82; RESP 20; O2SAT 97
[2020-03-05] MEDS: ipratropium-albuterol 3 mL Neb INHALATION (16:43)
[2020-03-05] MEDS: famotidine 20 mg Tablet 40 MG PO (16:46)
[2020-03-05] MEDS: diphenhydrAMINE 25 mg Capsule PO (16:46)
[2020-03-05 16:51] VITALS: PULSE 74
== END 2020-03-05 17:12 | disposition home or self-care (01) ==
PROVIDERS: Emergency Provider Emergency Medicine
DX: J44.9 Chronic obstructive pulmonary disease, unspecified (principal); F17.210 Nicotine dependence, cigarettes, uncomplicated
CPT/HCPCS: 12345; 94640; 99281; 99283

== ENCOUNTER 2020-03-05 21:48 | Emergency (ER) | payer SELFPAY ==
[2020-03-05 21:52] VITALS: BP 172/99; PULSE 82; RESP 18; TEMP 35.6; O2SAT 97; BMI 25.6
--- NOTE | 2020-03-05 22:09 | ED_ITS ---
HPI - Allergic Reaction General: Chief complaint: Allergic Reaction Stated complaint: needs breathing treatment Time Seen by Provider: 03/05/20 22:00 History of Present Illness: HPI narrative: Patient is a 54-year-old female comes to the ED with wheezing and shortness of breath. Patient was seen here in the ED earlier today after she had a reaction to a medication she took for the first time. After she took ago she started developing shortness of breath and wheezing and came here to the ED. This morning when I gave her a breathing treatment and sent her with a prescription for Atrovent. Tonight patient started feeling some wheezing and shortness of breath again and decided to come back here to the ED to get another breathing treatment. She says she will not be able to flower buncher or picker her Atrovent till tomorrow morning. She says her shortness of breath and wheezing tonight is not as bad as it was earlier today. She denies any fever or chest pain. Associated symptoms: Deny abdominal pain, nausea or vomiting Review of Systems Const: Denies: fever(s), chills or fatigue Eyes: Denies: change in vision or eye discomfort ENMT: Denies: throat pain, odynophagia, nasal discharge or nasal congestion Card: Denies: chest pain, palpitations, edema, swelling of feet/ankles, dyspnea on exertion or orthopnea Resp: Reports: dyspnea and wheezing; Denies: productive cough or non-productive cough GI: Denies: abdominal pain, nausea, vomiting, diarrhea, constipation or hematochezia : Denies: flank pain, dysuria or hematuria Musc: Denies: neck pain, back pain or extremity swelling Skin/Breast: Denies: rash or new lesions Neuro: Denies: headache(s), numbness in extremities or weakness in extremities PFS ED PFSH: Social History Smoking and tobacco status: current every day smoker cigarettes Packs smoked per day: 0.5 Years cigarettes smoked: 40 [ Other cigarette details: Hx of 1 PPD x 40 Years - Trying to quit ] Quit status (tobacco): has tried quititng Number of times tried to quit tobacco: 5 Second hand smoke exposure: Yes Alcohol intake: never Lives independently: Yes Household members: spouse Marital status: Current occupational status: unemployed History of recent travel: No Current gender identity: Female Physical Exam Narrative: EXAM NARRATIVE: Patient does not appear to be in any acute distress or any respiratory distress. She is sitting comfortably on the exam bed when I enter the room. She is able to speak in complete sentences in no tachypnea or audible wheezing heard. Const: COMMON NORMALS: no acute distress, patient oriented x3 and alert GENERAL APPEARANCE: cooperative and comfortable HENMT: COMMON NORMALS: normocephalic HEAD & SCALP: normocephalic MOUTH: Normal oral and palatal mucosa present THROAT: posterior oropharynx normal and uvula midline Neck/C-Spine: COMMON NORMALS: supple GENERAL: Yes normal visual inspection Resp: COMMON NORMALS: normal respiratory effort, No retractions and No use of accessory muscles EFFORT & INSPECTION: Yes able to speak in complete sentences, No tachypneic, No respiratory distress and No audible wheezes AUSCULTATION: wheezes scattered wheezes (Mild wheezing throughout lungs.) and throughout Cardio: COMMON NORMALS: regular rate, regular rhythm, S1 normal heart sound present, S2 normal heart sound present, No gallops present (Cardio), No clicks present (Cardio), No murmurs present (Cardio) and Peripheral pulses 2+ throughout RATE: regular rate RHYTHM: regular rhythm HEART SOUNDS: S1 normal heart sound present and S2 normal heart sound present PERIPHERAL PULSES: Peripheral pulses 2+ throughout GI: COMMON NORMALS: Normal to inspection, nondistended, normoactive bowel sounds present, Soft to palpation, non-tender and no masses PALPATION: Yes Soft to palpation : COMMON NORMALS: Yes no CVA tenderness BLADDER/KIDNEY EXAM: Yes no CVA tenderness Back/Pelvis: COMMON NORMALS: no CVA tenderness Extremity: COMMON NORMALS: normal to inspection Neuro: COMMON NORMALS: patient oriented x3 and moves all extremities SENSORIUM/ORIENTATION: Yes alert Skin: GENERAL SKIN EXAM: dry skin Course Reevaluation(s): Reevaluation #1: Patient received 2 DuoNeb breathing treatments while here in the ED and a dose of IM Solu-Medrol. I went in and listen to her lungs after breathing treatment and they were clear to auscultation bilaterally and no wheezing was heard. Patient says she feels better and shortness of breath has went away. Patient is ready for discharge. Time: 22:40 Vital Signs: Vital signs: Vital Signs Temperature 96.0 F L 03/05/20 21:52 Pulse Rate 82 03/05/20 22:19 Respiratory Rate 16 03/05/20 22:19 Blood Pressure 172/99 03/05/20 21:52 Pulse Oximetry 97 03/05/20 22:19 MDM - Allergic Reaction MDM Narrative: Medical decision making narrative: Patient is a 54-year-old female comes to the ED with wheezing. She was seen here in the ED with shortnes s of breath and wheezing earlier this morning and diagnosed with allergic reaction due to med. She was discharged with a prescription for Atrovent, but was unable to get prescription filled tonight. She returns to the ED with some wheezing and wanting a breathing treatment. Patient has some mild scattered wheezing throughout lungs. Patient was given an IM dose of Solu-Medrol and DuoNeb breathing treatment. Patient's wheezing and shortness of breath had completely resolved after DuoNeb treatment and she was discharged with a prescription of prednisone. Return to ED precautions given. I told patient to make sure she gets Atrovent prescription filled. Follow-up with PCP in 7 to 10 days. Patient understood and agreed with plan. Discharge Plan Discharge Patient Disposition: Home Clinical Impression: Bilateral wheezing Allergic reaction caused by a drug Qualifiers: Encounter type: subsequent encounter Qualified Code(s): T78.40XD - Allergy, unspecified, subsequent encounter Condition: Stable Prescriptions: New prednisone 50 mg tablet 50 mg PO DAILY 5 Days Qty: 5 RF: 0 No Action famotidine 10 mg tablet 10 mg PO DAILY@0800 PRN (Reason: STOMACH ISSUES) RF: 0 propranolol 20 mg tablet 20 mg PO BID PRN (Reason: anxiety) Qty: 60 RF: 2 Chantix 1 mg tablet 1 mg PO BID Qty: 56 RF: 2 cetirizine [Zyrtec] 10 mg Tablet 10 mg PO DAILY@1999 RF: 0 amlodipine 5 mg tablet 5 mg PO DAILY@0800 RF: 0 Bactrim DS 800-160 mg tablet 1 tab PO BID@ RF: 0 nicotine 21 mg/24 hr patch 24 hour 1 patch TRANSDERMA DAILY@0800 RF: 0 fluoxetine 20 mg capsule 20 mg PO DAILY@0730 RF: 0 Atrovent HFA 17 mcg/actuation HFA aerosol inhaler 1 puff INHALATION QID@ RF: 0 Spiriva Respimat 2.5 mcg/actuation mist 2 puff INHALATION DAILY@0800 RF: 0 trazodone 50 mg Tablet 50 mg PO BEDTIME PRN (Reason: Sleep) 30 Days Qty: 30 RF: 1 Atrovent HFA 17 mcg/actuation HFA aerosol inhaler 2 inh inhalation Q8H PRN (Reason: shortness of breath or wheezing) Qty: 12.9 RF: 3 Discharge Orders: Discharge ED (Routine); Ordered 03/05/20 Ordered By: Errol Wilson Discharge Diet: Regular Discharge Activity: Resume usual activity Patient Instructions: Allergic Reaction, Reactive Airways Disease (ED) Activity Restrictions/Additional Instructions: Follow-up with medical provider as directed in 5 to 7 days for reevaluation. Continue taking home medications as prescribed. Stop taking propranolol due to possible allergic reaction. Get your Atrovent prescription filled. Sending you with a prescription for prednisone as well. Return to the ER or your medical p rovider if condition worsens. Please read and understand discharge instructions. If any questions, please ask. Coding Level of Care Code ED Finish Specialist for Lisa Fwd Exam Comprehensive
[2020-03-05 22:19] VITALS: PULSE 82; RESP 16; O2SAT 97
[2020-03-05] MEDS: ipratropium-albuterol 3 mL Neb 6 ML INHALATION (22:19)
== END 2020-03-05 22:58 | disposition home or self-care (01) ==
PROVIDERS: Emergency Provider Physician Assistant
DX: R06.2 Wheezing (principal); T78.40XA Allergy, unspecified, initial encounter; F17.210 Nicotine dependence, cigarettes, uncomplicated
CPT/HCPCS: 12345; 94640; 96372; 99281; 99283; J2930

== ENCOUNTER 2020-09-20 11:59 | Emergency (ER) | payer SELFPAY ==
[2020-09-20 12:15] VITALS: BP 175/92; PULSE 86; RESP 16; TEMP 36.7; O2SAT 97; BMI 30.2
--- NOTE | 2020-09-20 13:12 | CT_ITS ---
WS: [id number] CT scan of the head, 09/20/2020 Clinical Data: trauma Comparison: None. DLP: 784.[address] scans at [facility] use at least one of these dose optimization techniques: automat ed exposure control; mA and/or kV adjustment per patient size (includes targeted exams where dose is matched to clinical indication); or iterative reconstruction. Findings: The ventricular system is normal without shift. No recent infarct or hemorrhage is seen. There are no abnormal intracerebral masses. The cerebellum and brainstem are not remarkable. Bony windows of the skull and skull base show no fractures or erosions. The mastoid air cells, consultant internship al auditory canals, sella turcica, intraorbital contents, and paranasal sinuses are unremarkable. CT/CT head wo con* [id number] Impression: Negative CT scan of the head
--- NOTE | 2020-09-20 13:12 | CT_ITS ---
WS: [id number] CT cervical spine. Additional two-dimensional coronal and sagittal reconstruction was performed. 09/20 Clinical Data: trauma Comparison: CT soft tissue neck, 11/29/2019. DLP: 723.[address] scans at [facility] use at least one of these dose optimization techniques: automat ed exposure control; mA and/or kV adjustment per patient size (includes targeted exams where dose is matched to clinical indication); or iterative reconstruction. Findings: No compression fractures are seen. The disc heights are normal. The spinous processes are in good ali gnment. The odontoid is unremarkable. There is no prevertebral soft tissue swelling. The soft tissues of the cervical spine and the lung apices are not remarkable. C2-C3: No disc bulge, canal stenosis or foraminal stenosis is seen. C3-C4: No disc bulge, canal stenosis or foraminal stenosis is seen. C4-C5: No disc bulge, canal stenosis or foraminal stenosis is seen. C5-C6: No disc bulge, canal stenosis or foraminal stenosis is seen. C6-C7: No disc bulge, canal stenosis or foraminal stenosis is seen. C7-T1: No disc bulge, canal stenosis or foraminal stenosis is seen. CT/CT cervical spin wo con* [id number] Impression: Negative CT scan of the cervical spine.
--- NOTE | 2020-09-20 14:18 | ED_ITS ---
HPI - Head Injury General: Chief complaint: Head Injury Stated complaint: HEAD INJURY Time Seen by Provider: 09/20/20 12:03 Source: patient Mode of arrival: ambulatory Limitations: no limitations History of Present Illness: MD Complaint: head injury Onset (ago): minute(s) (30) Mechanism of Injury: other (struck head on corner of cabinet) Place: home Loss of Consciousness: no Location of injury: parietal Severity: mild Quality: stabbing and throbbing Radiation: neck Other Injuries: laceration Associated symptoms: Reports nausea and vertigo; Deny neck pain or syncope Review of Systems Const: Denies: fever(s), chills, body aches, change in appetite, change in weight, fatigue, malaise or diaphoresis Eyes: Denies: change in vision, blurry vision, blind spots, photophobia, eye discomfort, eye discharge, eye redness, floaters or seeing flashes ENMT: Denies: throat pain, uvular edema, enlarged tonsils, odynophagia, hoarseness, mouth pain, swelling of lips/tongue, oral sores, bleeding gums, dental pain, dry mouth, ear or mastoid pain, ear discharge, change in hearing, tinnitus, disequilibrium, nasal discharge, nasal congestion, post nasal drip or sinus pain Card: Denies: chest pain, palpitations, irregular heart rhythm, edema, swelling of feet/ankles, lightheadedness, syncope, pre-syncope, dyspnea on exertion, orthopnea, leg pain with exertion or acrocyanosis Resp: Denies: dyspnea, productive cough, non-productive cough, wheezing, stridor, pain on inspiration, change in phlegm color, hemoptysis or chest congestion GI: Reports: nausea : Denies: flank pain, difficulty voiding, dysuria, urinary frequency, urinary urgency, urinary hesitancy or hematuria Musc: Denies: neck pain, back pain, extremity pain, extremity swelling, joint pain, joint swelling, joint redness, joint warmth or deformity Skin/Breast: Denies: rash, pruritus, erythema, sores, new lesions, changes in skin color or dry skin Neuro: Reports: headache(s) and vertigo Psych: Denies: anxiety, depression, suicidal ideation or homicidal ideation Endo: Denies: polyuria, polydipsia, tired all the time, cold intolerance, excessive sweating, flushing, hot flashes or heat intolerance Reji/Lymph: Denies: easy bruising, easy bleeding, petechiae, purpura, enlarged lymph nodes or tender lymph nodes All/Imm: Denies: urticaria, throat swelling, tongue swelling, facial swelling, acute wheezing or itchy eyes PFSH ED PFSH: Social History Smoking and tobacco status: current every day smoker cigarettes Packs smoked per day: 0.5 Years cigarettes smoked: 40 [ Other cigarette details: Hx of 1 PPD x 40 Years - Trying to quit ] Quit status (tobacco): has tried quititng Number of times tried to quit tobacco: 5 Second hand smoke exposure: Yes Alcohol intake: never Lives independently: Yes Household members: spouse Marital status: Current occupational status: unemployed History of recent travel: No Current gender identity: Female Physical Exam Const: COMMON NORMALS: no acute distress, patient oriented x3, healthy appearing, alert and well nourished GENERAL APPEARANCE: cooperative, comfort able, well kempt and well developed; not ill appearing ORIENTATION/CONSCIOUSNESS: Yes awake, Yes oriented to person, Yes oriented to place and Yes oriented to time HENMT: COMMON NORMALS: normocephalic, atraumatic (small puncture wound), hearing grossly normal bilaterally, external ears normal, EAC's normal, TM's normal bilaterally, Normal external nose present, Normal nasal mucous membranes and turbinates present and moist oral mucous membranes HEAD & SCALP: normal to inspection, normocephalic and atraumatic (small puncture wound) FACE & SINUS: normal facial exam, sinuses nontender and face symmetric NOSE: Normal external nose present, Normal nares present, Normal nasal mucous membranes and turbinates present, No nasal discharge present and Abnormal external nose present EXTERNAL EAR: Yes external ears normal and Yes mastoids normal EXTERNAL AUDITORY CANAL: EAC's normal TYMPANIC MEMBRANE: TM's normal bilaterally MOUTH: Normal oral and palatal mucosa present, lip normal, tongue normal and Normal salivary glands and ducts present THROAT: no uvular edema Eye: COMMON NORMALS: Equal, round and reactive pupils present, EOMs intact bilaterally, conjunctivae normal, no scleral icterus and no papilledema GENERAL EYE: appearance normal, both eyes and all related structures EYELID: eyelids normal CONJUNCTIVA: Yes conjunctivae normal SCLERA: sclerae normal CORNEA: Yes corneas normal PUPIL: Yes Equal, round and reactive pupils present DIRECT OPHTHALMOSCOPY: Yes no papilledema Neck/C-Spine: COMMON NORMALS: full ROM, no lymphadenopathy, supple, no meningeal signs, no JVD and Thyroid normal GENERAL: Yes normal visual inspection and Yes trachea midline THYROID: Thyroid normal CERVICAL SPINE: Yes cervical ROM normal Lymph: LYMPHATIC: no lymphadenopathy noted and no lymphedema noted Chest: COMMONS NORMALS: normal inspection of the chest and normal palpation of entire chest wall Resp: COMMON NORMALS: normal respiratory effort, No retractions, No use of accessory muscles and clear to auscultation bilaterally EFFORT & INSPECTION: Yes able to speak in complete sentences and Yes symmetric chest movement AUSCULTATION: clear to auscultation bilaterally Cardio: COMMON NORMALS: no JVD, regular rate and regular rhythm RATE: regular rate RHYTHM: regular rhythm GI: COMMON NORMALS: Normal to inspection, nondistended, normoactive bowel sounds present, Soft to palpation, non-tender, No hepatosplenomegaly present, no masses and no bruits INSPECTION: Yes normal to inspection AUSCULTATION: Yes normoactive bowel sounds PALPATION: Yes Soft to palpation and Yes No hepatosplenomegaly present PERCUSSION: normal to percussion RECTAL EXAM: deferred : COMMON NORMALS: Yes no CVA tenderness, Yes normal external appearance, Yes normal appearance of the vagina, Yes normal appearance of the cervix, Yes normal bimanual exam, Yes No adnexal tenderness and Yes no masses BLADDER/KIDNEY EXAM: Yes no CVA tenderness BIMANUAL EXAM - VAGINA & UTERUS: Yes normal bimanual exam Back/Pelvis: COMMON NORMALS: no CVA tenderness, thoracic and lumbar spine normal to inspection, no thoracic nor lumbar tenderness, thoraco-lumbar ROM normal and straight leg raise negative bilaterally THORACIC SPINE/UPPER BACK: Yes normal to inspection LUMBAR SPINE/LOWER BACK: Yes normal to inspection Extremity: COMMON NORMALS: normal to inspection, full ROM and capillary refill normal GENERAL: Yes normal exam except as noted Neuro: COMMON NORMALS: patient oriented x3, CN's II-XII intact bilaterally, moves all extremities, no focal motor deficits, no sensory deficits noted, deep tendon reflexes 2+ bilaterally and gait normal SENSORIUM/ORIENTATION: Yes alert, Yes oriented to person, Yes oriented to place and Yes oriented to time MENINGEAL SIGNS: Yes no meningeal signs CRANIAL NERVES: Yes CN normal except as noted SPEECH: speech normal GAIT: Yes Normal gait present SENSORY EXAM: Yes extremities MOTOR EXAM: 5/5 motor strength present throughout Psych: COMMON NORMALS: mental status grossly normal, Normal thought process present, cooperative, normal affect, speech normal, activity/motor behavior normal, denies hallucinations, denies homicidal ideation and denies suicidal ideation APPEARANCE: Yes grossly normal and Yes well kempt ATTITUDE: Yes calm ACTIVITY/MOTOR BEHAVIOR: Yes appropriate eye contact SPEECH: Yes normal speech THOUGHT PROCESS: Normal thought process present THOUGHT CONTENT: Yes Normal thought content present ATTENTION/CONCENTRATION: Yes attention grossly intact MEMORY/COGNITION: Yes memory grossly intact INSIGHT: Good insight present (Psych) JUDGEMENT: Good judgement present (Psych) Skin: COMMON NORMALS: no rashes or lesions noted, no wounds, turgor normal, no jaundice, no petechiae and no mottling GENERAL SKIN EXAM: no rashes or lesions noted and turgor normal Course Vital Signs: Vital signs: Vital Signs Temperature 98.1 F 09/20/20 12:15 Pulse Rate 86 09/20/20 12:15 Respiratory Rate 16 09/20/20 12:15 Blood Pressure 175/92 09/20/20 12:15 Pulse Oximetry 97 09/20/20 12:15 MDM - Head Injury MDM Narrative: Medical decision making narrative: Pt is well appearing non toxic and in no acute distress. Pt has head a minor headache and some dizziness upon presentation to ER but since has resolved. I did order CT head and neck which both were negative for any acute or concernign findings. Pts puncture wound is not bleeding and superficial and will not require repair. Pt is unsure of last tetanus so we will update that today. Pt has no focal neuro deficits noted. I discussed with patient return precautions as well as home care. Pt verbalizes understanding Discharge Plan Discharge Condition: Stable Prescriptions: No Action famotidine 10 mg tablet 10 mg PO DAILY@0800 PRN (Reason: STOMACH ISSUES) RF: 0 propranolol 20 mg tablet 20 mg PO BID PRN (Reason: anxiety) Qty: 60 RF: 2 Chantix 1 mg tablet 1 mg PO BID Qty: 56 RF: 2 albuterol sulfate 90 mcg/actuation HFA aerosol inhaler 2 puff INHALATION Q6H PRN (Reason: shortness of breath or wheezing) Qty: 8.5 RF: 0 cetirizine [Zyrtec] 10 mg Tablet 10 mg PO DAILY@1999 RF: 0 amlodipine 5 mg tablet 5 mg PO DAILY@0800 RF: 0 Bactrim DS 800-160 mg tablet 1 tab PO BID@, RF: 0 nicotine 21 mg/24 hr patch 24 hour 1 patch TRANSDERMA DAILY@0800 RF: 0 fluoxetine 20 mg capsule 20 mg PO DAILY@0730 RF: 0 Atrovent HFA 17 mcg/actuation HFA aerosol inhaler 1 puff INHALATION QID@,, RF: 0 Spiriva Respimat 2.5 mcg/actuation mist 2 puff INHALATION DAILY@0800 RF: 0 trazodone 50 mg Tablet 50 mg PO BEDTIME PRN (Reason: Sleep) 30 Days Qty: 30 RF: 1 Atrovent HFA 17 mcg/actuation HFA aerosol inhaler 2 inh inhalation Q8H PRN (Reason: shortness of breath or wheezing) Qty: 12.9 RF: 3 Discharge Orders: Discharge ED (Routine); Ordered 09/20/20 Ordered By: Maryellen Ortiz Discharge Diet: Advance as tolerated Discharge Activity: Resume usual activity Patient Instructions: Concussion/Head Injury - Adult Activity Restrictions/Additional Instructions: Return to the ER if headaches that get worse weakness or numbness in any part of your body coordination problems that get worse vomiting (that occurs more than once) slurred speech problems waking up from sleep more confusion, irritability, or anxiety any symptom that seems to be getting worse Keep wound clean and dry Coding Level of Care Code ED Asp Web Developer for Lisa Ibrahim
[2020-09-20] MEDS: tetanus-diphtheria tox (adult) 0.5 mL SDV IM (14:35)
== END 2020-09-20 14:34 | disposition home or self-care (01) ==
PROVIDERS: Emergency Provider Registered Nurse
DX: S01.93XA Puncture wound without foreign body of unspecified part of head, initial encounter (principal); W22.09XA Striking against other stationary object, initial encounter; F17.210 Nicotine dependence, cigarettes, uncomplicated; Z23 Encounter for immunization
CPT/HCPCS: 70450; 72125; 90471; 90714; 99282

== ENCOUNTER 2020-12-31 03:37 | Inpatient (IN) | payer OTHER, SELFPAY ==
[2020-12-31] VITALS (13 sets, daily range): BP systolic 131–177; BP diastolic 63–102; PULSE 70–96; RESP 17–28; TEMP 36.6–36.8; O2SAT 91–95; BMI 30.2
--- NOTE | 2020-12-31 03:22 | XRR_ITS ---
PROCEDURE INFORMATION: Exam: XR Chest Exam date and time: 12/31/2020 3:22 AM Age: 55 years old Clinical indication: Pain; Chest pressure; Additional info: Cp TECHNIQUE: Imaging protocol: XR of the chest. Views: 1 view. COMPARISON: CR XR chest 1V portable [id number] 02/27/2020 12:21 PM FINDINGS: Lungs: The lungs are clear bilaterally. Pulmonary vasculature within normal limits. Pleural space: No visible pneumothorax or pleural effusion. Heart/Mediastinum: Cardiomediastinal silhouette contour within normal limits. Bones/joints: No emergent findings identified. XR/XR chest 1V portable [id number] IMPRESSION: 1. No radiographic findings of acute cardiopulmonary disease. Radiation Dose CTDIVOL = (mGy): DLP = (mGy-cm)
--- NOTE | 2020-12-31 04:06 | ECG_ITS ---
[facility] Test Date: 2020-12-31 Pat Name: Ines Gallegos Department: Room: Gender: Female Client Consultant: : 1965 Requested By: Leandro Norton Order Number: [id number] Alisha MD: Gael Harvey M.D. Measurements Intervals [place] Rate: 87 P: 63 FL: 142 QRS: -10 QRSD: 101 T: 60 QT: 376 QTc: 453 Interpretive Statements SINUS RHYTHM INCOMPLETE RIGHT BUNDLE BRANCH BLOCK [90+ ms QRS DURATION, TERMINAL R IN V1/V2, 40+ ms S IN I/aVL/V4/V5/V6] Compared to ECG 02/27/2020 12:32:36 Incomplete right bundle-branch block now present T-wave abnormality no longer present Electronically Signed On 12-31-2020 23:21:01 CDT by Gael Harvey M.D. [id number] f
[2020-12-31 04:19] LABS: Basophils # 0.1 10^3/uL (0.0-0.1); Basophils % 0.6 %; Eosinophils # 0.4 10^3/uL (0.0-0.8); Eosinophils % 2.8 %; Hematocrit 42.3 % (37.0-47.0); Hemoglobin 13.2 g/dL (11.5-15.3); Lymphocytes # 1.8 10^3/uL (0.8-4.8); Lymphocytes % 13.9 %; Mean Corpuscular HGB Conc 31.2 g/dL (30.0-36.0); Mean Corpuscular Hemoglobin 28.8 pg (28.0-34.0); Mean Corpuscular Volume 92.4 fl (81-99); Mean Platelet Volume 11.6 fL (7.4-10.4); Monocytes # 0.9 10^3/uL (0.2-0.9); Monocytes % 7.1 %; Neutrophils # 9.56 10^3/uL (1.8-7.7); Neutrophils % 75.3 %; Nucleated Red Blood Cells % 0 %; Platelet Count 272 10^3/cmm (130-400); Red Blood Count 4.58 10^6/uL (4.1-5.3); Red Cell Distribution Width 12.5 % (12.1-15.1); White Blood Count 12.7 10^3/uL (4.0-10.0)
[2020-12-31 04:28] LABS: D Dimer 0.62 ug/mIFEU (0-0.59)
[2020-12-31 04:31] LABS: Troponin(5th) Baseline 11 ng/L (0-10)
[2020-12-31 04:39] LABS: Alanine Aminotransferase 19 U/L (0-33); Alkaline Phosphatase 160 IU/L (35-105); Anion Gap 18.5 (5-19); Aspartate Amino Transferase 15 U/L (0-32); Blood Urea Nitrogen 15 mg/dL (6-20); Calcium 9.1 mg/dL (8.5-10.5); Carbon Dioxide 21 mmol/L (22-29); Chloride 105 mmol/L (98-107); Creatine Phosphokinase 121 U/L (26-192); Globulin 2.8 g/dL (1.3-4.6); Glomerular Filtration Rate 64.8 mL/min (90-130); Glucose 118 mg/dL (65-115); NT Pro B Type Natriuretic Pept 65 pg/mL (0-125); Osmolality Calculated 292 mOsm/kg (285-295); Potassium 4.5 mmol/L (3.5-5.1); Sodium 140 mmol/L (136-145); Total Bilirubin 0.2 mg/dL (0.15-1.2); Total Protein 6.8 g/dL (6.6-8.7)
--- NOTE | 2020-12-31 04:54 | W.ED.CHESTPA ---
HPI - Chest Pain General: Chief Complaint: Chest Pain Stated Complaint: chest pain Time Seen by Provider: 12/31/20 03:53 History of Present Illness: HPI narrative: 55-year-old female with a history of COPD presenting with chest discomfort and shortness of breath. She states that she woke up suddenly, drenched in sweat, with tightness in her chest and shortness of breath she said that her belly felt very hot and tight, and that she had tingling in her upper extremities bilaterally. She took a breathing treatment that did not seem to help. called the ambulance, but by the time ambulance arrived, she was beginning to feel better. Her pain is essentially improved at this point completely. She still mildly short of breath. She is no longer diaphoretic MD complaint: chest discomfort Onset (ago): hour(s) Timing of current episode: constant and now resolved Prior episodes: Yes Onset: during rest and awoke with symptoms Pain location: substernal and epigastric Pain radiation: right arm and left arm Quality: tightness and burning Relieving factors: nothing Exacerbating factors: nothing Associated symptoms: Reports abdominal pain, diaphoresis, dyspnea, nausea and sense of impending doom; Deny fever(s), leg edema, palpitations or vomiting Treatment prior to arrival: aspirin and nitroglycerin Review of Systems Const: Reports: diaphoresis; Denies: fever(s) Card: Denies: palpitations Resp: Reports: dyspnea GI: Reports: abdominal pain and nausea; Denies: vomiting [facility] ED PFSH: Social History Smoking and tobacco status: current every day smoker cigarettes Packs smoked per day: 0.5 Years cigarettes smoked: 40 [ Other cigarette details: Hx of 1 PPD x 40 Years - Trying to quit ] Quit status (tobacco): has tried quititng Number of times tried to quit tobacco: 5 Second hand smoke exposure: Yes Alcohol intake: never Lives independently: Yes Household members: spouse Marital status: Current occupational status: unemployed History of recent travel: No Current gender identity: Female Physical Exam Const: COMMON NORMALS: no acute distress, patient oriented x3 and alert HENMT: COMMON NORMALS: normocephalic HEAD & SCALP: normocephalic Eye: COMMON NORMALS: Equal, round and reactive pupils present and EOMs intact bilaterally PUPIL: Yes Equal, round and reactive pupils present Chest: COMMONS NORMALS: normal inspection of the chest Resp: COMMON NORMALS: normal respiratory effort, No use of accessory muscles and clear to auscultation bilaterally AUSCULTATION: clear to auscultation bilaterally Cardio: COMMON NORMALS: regular rate and regular rhythm RATE: regular rate RHYTHM: regular rhythm GI: COMMON NORMALS: Normal to inspection, nondistended, normoactive bowel sounds present and Soft to palpation PALPATION: Yes Soft to palpation Neuro: COMMON NORMALS: patient oriented x3 SENSORIUM/ORIENTATION: Yes alert Course Consultations: Consultation #1: magalys Time: 07:23 Vital Signs: Vital signs: Vital Signs Pulse Rate 95 12/31/20 03:38 Respiratory Rate 20 H 12/31/20 03:38 Pulse Oximetry 95 12/31/20 03:38 MDM - Chest Pain MDM Narrative: Medical decision making narrative: 55-year-old female with chest and upper abdominal discomfort and burning, shortness of breath, and coughing. She is afebrile here. Symptoms are essentially resolved. Saturations 94% on room air, heart rate 82, blood pressure 116/52. Her white blood cell count is 12.7. BMP is essentially normal. Her first troponin is slightly elevated at 11. EKG reveals a sinus rhythm with an incomplete right bundle branch block, normal axis, no acute ST changes. Rate is 85. We are awaiting a second troponin. [0717] patient's pain is still resolved. She is breathing room air satting 94%. Blood pressure is 149 systolic, heart rate 80. Patient's delta troponin is 22. Warrants further monitoring and work-up. She will be observed Lab Data: Labs: Lab Results 12/31/20 12/31/20 12/31/20 03:45 03:45 03:45 WBC 12.7 10^3/uL H 10 ^3/uL (4.0-10.0) RBC 4.58 10^6/uL 10^6 /uL (4.1-5.3) Hgb 13.2 g/dL g/dL (11.5-15.3) Hct 42.3 % % (37.0-47.0) MCV 92.4 fl fl (81-99) MCH 28.8 pg pg (28.0-34.0) MCHC 31.2 g/dL g/dL (30.0-36.0) RDW 12.5 % % (12.1-15.1) Plt Count 272 10^3/cmm 10^3 /cmm (130-400) MPV 11.6 fL H fL (7.4-10.4) Neut % (Auto) 75.3 % % Lymph % (Auto) 13.9 % % [place] % (Auto) 7.1 % % Eos % (Auto) 2.8 % % Baso % (Auto) 0.6 % % Neut # (Auto) 9.56 10^3/uL H 10 ^3/uL (1.8-7.7) Lymph # (Auto) 1.8 10^3/uL 10^3/ uL (0.8-4.8) [place] # (Auto) 0.9 10^3/uL 10^3/ uL (0.2-0.9) Eos # (Auto) 0.4 10^3/uL 10^3/ uL (0.0-0.8) Baso # (Auto) 0.1 10^3/uL 10^3/ uL (0.0-0.1) Nucleated RBC % (a uto) 0 % % Nucleated RBCs # 0.0 /100WBC /100W BC D-Dimer 0.62 ug/mIFEU H u g/mIFEU (0-0.59) Sodium 140 mmol/L mmol/L (136-145) Potassium 4.5 mmol/L mmol/L (3.5-5.1) Chloride 105 mmol/L mmol/L (98-107) Carbon Dioxide 21 mmol/L L mmol/ L (22-29) Anion Gap 18.5 (5-19) BUN 15 mg/dL mg/dL (6-20) Creatinine 0.9 mg/dL mg/dL (0.5-0.9) GFR Calculation 64.8 mL/min L mL/ min (90-130) Glucose 118 mg/dL H mg/dL (65-115) Calculated Osmolal ity 292 mOsm/kg mOsm/ kg (285-295) Calcium 9.1 mg/dL mg/dL (8.5-10.5) Total Bilirubin 0.2 mg/dL mg/dL (0.15-1.2) AST 15 U/L U/L (0-32) ALT 19 U/L U/L (0-33) Alkaline Phosphata se 160 IU/L H IU/L (35-105) Creatine Kinase 121 U/L U/L (26-192) Troponin T Baselin e Troponin T 120 Min [place] Troponin T NT-Pro-B Natriuret Pep 65 pg/mL pg/mL (0-125) Total Protein 6.8 g/dL g/dL (6.6-8.7) Albumin 4.0 g/dL g/dL (3.5-5.2) Globulin 2.8 g/dL g/dL (1.3-4.6) 12/31/20 12/31/20 03:45 05:40 WBC RBC Hgb Hct MCV MCH MCHC RDW Plt Count MPV Neut % (Auto) Lymph % (Auto) [place] % (Auto) Eos % (Auto) Baso % (Auto) Neut # (Auto) Lymph # (Auto) [place] # (Auto) Eos # (Auto) Baso # (Auto) Nucleated RBC % (a uto) Nucleated RBCs # D-Dimer Sodium Potassium Chloride Carbon Dioxide Anion Gap BUN Creatinine GFR Calculation Glucose Calculated Osmolal ity Calcium Total Bilirubin AST ALT Alkaline Phosphata se Creatine Kinase Troponin T Baselin e 11 ng/L H ng/L (0-10) Troponin T 120 Min [place] 33.35 ng/L H ng/L (0-10) Delta Troponin T 22.35 ABS# H* ABS # (0-10) NT-Pro-B Natriuret Pep Total Protein Albumin Globulin Discharge Plan Discharge Patient Disposition: Placed in Observation Clinical Impression: Acute non-ST elevation myocardial infarction (NSTEMI) Coding Level of Care Code ED Optical Effects Camera Operator for Lisa Fwd Exam Detailed
--- NOTE | 2020-12-31 06:06 | ECG_ITS ---
[facility] Test Date: 2020-12-31 Pat Name: Ines Gallegos Department: Room: Gender: Female Collection Clerk: : 1965 Requested By: Leandro Norton Order Number: [id number] Alisha MD: Gael Harvey M.D. Measurements Intervals [place] Rate: 75 P: 65 [place]: 150 QRS: 22 QRSD: 100 T: 63 QT: 399 QTc: 447 Interpretive Statements SINUS RHYTHM INCOMPLETE RIGHT BUNDLE BRANCH BLOCK [90+ ms QRS DURATION, TERMINAL R IN V1/V2, 40+ ms S IN I/aVL/V4/V5/V6] Compared to ECG 12/31/2020 03:54:17 No significant changes Electronically Signed On 12-31-2020 23:24:05 CDT by Gael Harvey M.D. [id number]
[2020-12-31 06:30] LABS: Troponin 5 2HR 33.35 ng/L (0-10)
[2020-12-31 06:44] LABS: Troponin 5 2HR Delta 22.35 ABS# (0-10)
--- NOTE | 2020-12-31 07:24 | ED_ITS ---
HPI - Chest Pain General: Chief Complaint: Chest Pain Stated Complaint: chest pain Time Seen by Provider: 12/31/20 03:53 History of Present Illness: Pain location: substernal and epigastric Quality: tightness and burning Relieving factors: nothing Exacerbating factors: nothing PFSH ED PFSH: Social History Smoking and tobacco status: current every day smoker cigarettes Packs smoked pe r day: 0.5 Years cigarettes smoked: 40 [ Other cigarette details: Hx of 1 PPD x 40 Years - Trying to quit ] Quit status (tobacco): has tried quititng Number of times tried to quit tobacco: 5 Second hand smoke exposure: Yes Alcohol intake: never Lives independently: Yes Household members: spouse Marital status: Current occupational status: unemployed History of recent travel: No Current gender identity: Female Course Vital Signs: Vital signs: Vital Signs Pulse Rate 95 12/31/20 03:38 Respiratory Rate 20 H 12/31/20 03:38 Pulse Oximetry 95 12/31/20 03:38 MDM - Chest Pain Lab Data: Labs: Lab Results 12/31/20 12/31/20 12/31/20 03:45 03:45 03:45 WBC 12.7 10^3/uL H 10 ^3/uL (4.0-10.0) RBC 4.58 10^6/uL 10^6 /uL (4.1-5.3) Hgb 13.2 g/dL g/dL (11.5-15.3) Hct 42.3 % % (37.0-47.0) MCV 92.4 fl fl (81-99) MCH 28.8 pg pg (28.0-34.0) MCHC 31.2 g/dL g/dL (30.0-36.0) RDW 12.5 % % (12.1-15.1) Plt Count 272 10^3/cmm 10^3 /cmm (130-400) MPV 11.6 fL H fL (7.4-10.4) Neut % (Auto) 75.3 % % Lymph % (Auto) 13.9 % % [place] % (Auto) 7.1 % % Eos % (Auto) 2.8 % % Baso % (Auto) 0.6 % % Neut # (Auto) 9.56 10^3/uL H 10 ^3/uL (1.8-7.7) Lymph # (Auto) 1.8 10^3/uL 10^3/ uL (0.8-4.8) [place] # (Auto) 0.9 10^3/uL 10^3/ uL (0.2-0.9) Eos # (Auto) 0.4 10^3/uL 10^3/ uL (0.0-0.8) Baso # (Auto) 0.1 10^3/uL 10^3/ uL (0.0-0.1) Nucleated RBC % (a uto) 0 % % Nucleated RBCs # 0.0 /100WBC /100W BC D-Dimer 0.62 ug/mIFEU H u g/mIFEU (0-0.59) Sodium 140 mmol/L mmol/L (136-145) Potassium 4.5 mmol/L mmol/L (3.5-5.1) Chloride 105 mmol/L mmol/L (98-107) Carbon Dioxide 21 mmol/L L mmol/ L (22-29) Anion Gap 18.5 (5-19) BUN 15 mg/dL mg/dL (6-20) Creatinine 0.9 mg/dL mg/dL (0.5-0.9) GFR Calculation 64.8 mL/min L mL/ min (90-130) Glucose 118 mg/dL H mg/dL (65-115) Calculated Osmolal ity 292 mOsm/kg mOsm/ kg (285-295) Calcium 9.1 mg/dL mg/dL (8.5-10.5) Total Bilirubin 0.2 mg/dL mg/dL (0.15-1.2) AST 15 U/L U/L (0-32) ALT 19 U/L U/L (0-33) Alkaline Phosphata se 160 IU/L H IU/L (35-105) Creatine Kinase 121 U/L U/L (26-192) Troponin T Baselin e Troponin T 120 Min [place] Troponin T NT-Pro-B Natriuret Pep 65 pg/mL pg/mL (0-125) Total Protein 6.8 g/dL g/dL (6.6-8.7) Albumin 4.0 g/dL g/dL (3.5-5.2) Globulin 2.8 g/dL g/dL (1.3-4.6) 12/31/20 12/31/20 03:45 05:40 WBC RBC Hgb Hct MCV MCH MCHC RDW Plt Count MPV Neut % (Auto) Lymph % (Auto) [place] % (Auto) Eos % (Auto) Baso % (Auto) Neut # (Auto) Lymph # (Auto) [place] # (Auto) Eos # (Auto) Baso # (Auto) Nucleated RBC % (a uto) Nucleated RBCs # D-Dimer Sodium Potassium Chloride Carbon Dioxide Anion Gap BUN Creatinine GFR Calculation Glucose Calculated Osmolal ity Calcium Total Bilirubin AST ALT Alkaline Phosphata se Creatine Kinase Troponin T Baselin e 11 ng/L H ng/L (0-10) Troponin T 120 Min [place] 33.35 ng/L H ng/L (0-10) Delta Troponin T 22.35 ABS# H* ABS # (0-10) NT-Pro-B Natriuret Pep Total Protein Albumin Globulin Discharge Plan Discharge Patient Disposition: Placed in Observation Clinical Impression: Acute non-ST elevation myocardial infarction (NSTEMI) Coding Level of Care Code ED Adjunct Mathematics Instructor for Lisa Ibrahim
[2020-12-31] MEDS: aspirin 325 mg Tablet PO (07:34)
[2020-12-31] MEDS: enoxaparin 80 mg/0.8 mL Syringe 70 MG SUBCUT ×2 (07:34→20:51)
[2020-12-31] MEDS: clopidogrel 300 mg Tablet PO (07:34)
--- NOTE | 2020-12-31 08:24 | CTR_ITS ---
PROCEDURE INFORMATION: Exam: CTA Chest With Contrast Exam date and time: 12/31/2020 8:24 AM Age: 55 years old Clinical indication: Pain; Left-sided; Additional info: Possible pe, chest pain, aortic disease TECHNIQUE: Imaging protocol: Computed tomographic angiography of the chest with contrast. 3D rendering (Not supervised by radiologist): MIP and/or 3D reconstructed images were created by the technologist. Total images: 779 Radiation optimization: All CT scans at this facility use at least one of these dose optimization techniques: automated exposure control; mA and/or kV adjustment per patient size (includes targeted exams where dose is matched to clinical indication); or iterative reconstruction. Contrast material: OMNI 350; Contrast volume: 56 ml; Contrast route: INTRAVENOUS (IV); COMPARISON: CR (CHEST, ) 12/31/2020 3:54 AM RADIATION DOSE METRICS: Total DLP (mGy-cm): 528 FINDINGS: Pulmonary arteries: Pulmonary artery evaluation of good technical quality with no pulmonary artery embolism identified. Aorta: No aortic aneurysm nor dissection. Lungs: Mild centrilobular emphysematous changes are present. Trace atelectasis or scar noted in the left mid lung. Pleural spaces: Unremarkable. No pneumothorax. No pleural effusion. Heart: Unremarkable. No cardiomegaly. No pericardial effusion. Lymph nodes: Numerous mildly prominent mediastinal and hilar lymph nodes felt to be reactive. Diaphragm: A small hiatal hernia is present. Incidental fat containing right posterior lower thoracic Bochdalek hernia. Bones/joints: Unremarkable. No acute fracture. Soft tissues: Unremarkable. CT/CT angio chest PE protcl [id number] IMPRESSION: 1. No aortic aneurysm nor dissection. 2. Numerous mildly prominent mediastinal and hilar lymph nodes felt to be reactive. 3. No pulmonary artery embolism identified. 4. Mild centrilobular emphysematous changes are present. 5. Trace atelectasis or scar noted in the left mid lung. Radiation Dose CTDIVOL = (mGy): DLP = 528 (mGy-cm)
--- NOTE | 2020-12-31 08:24 | USCV_ITS ---
Ines Gallegos Age: 55 Gender: F : 1965 Exam Date: 12/31/2020 15:44 Ordering Phys: Earle Arias MD Technologist: Veronica Yao [place] [facility] [place]: Chest pain BP: 176 / 102 HR: 87 Rhythm: Sinus Technical Quality: Adequate MEASUREMENTS (Male / Female) Normal Values 2D ECHO LV Diastolic Diameter PLAX 3.9 cm 4.2 - 5.9 / 3.9 - 5.3 cm LV Systolic Diameter PLAX 2.4 cm LV Chamber Size 4.0 cm IVS Diastolic Thickness 1.3 cm 0.6 - 1.0 / 0.6 - 0.9 cm IVS Systolic Thickness 1.7 cm LVPW Diastolic Thickness 1.0 cm 0.6 - 1.0 / 0.6 - 0.9 cm LVPW Systolic Thickness 1.2 cm RV Chamber Size 2.0 cm LVOT Diameter 1.8 cm LV Ejection Fraction 2D Teich 71.1 % LV Ejection Fraction MOD 2C 71.8 % LV Ejection Fraction 2C AL 70.8 % LA Diameter 2.9 cm LA Width 2.0 cm LA Height 3.9 cm RA Width 1.8 cm RA Height 2.6 cm Aorta at Sinotubular Diameter 2.6 cm M-MODE LV Diastolic Diameter MM 4.4 cm 4.2 - 5.9 / 3.9 - 5.3 cm LV Systolic Diameter MM 2.3 cm LV Ejection Fraction MM Teich 80.3 % IVS Diastolic Thickness MM 1.1 cm 0.6 - 1.0 / 0.6 - 0.9 cm IVS Systolic Thickness MM 1.6 cm LVPW Diastolic Thickness MM 1.1 cm 0.6 - 1.0 / 0.6 - 0.9 cm LVPW Systolic Thickness MM 1.5 cm RV Diastolic Diameter MM 1.8 cm Aortic Annulus Diameter 2.7 cm LA Ao Ratio MM 1.2 MV E Point Septal Separation 0.3 cm DOPPLER AV Peak Velocity 150.0 cm/s LVOT Peak Velocity 111.0 cm/s AV Area Cont Eq vti 1.9 cm squared AV Area Cont Eq pk 1.8 cm squared MV Area PHT 5.9 cm squared Mitral E to A Ratio 0.9 MV E' Velocity 49.5 cm/s Mitral E to MV E' Ratio 9.4 Mitral E to LV E' Lateral Ratio 8.9 Mitral E to LV E' Septal Ratio 9.9 TR Peak Velocity 217.0 cm/s TR Peak Gradient 18.8 mmHg TV Peak E Velocity 59.0 cm/s Right Atrial Pressure 3.0 mmHg Pulmonary Artery Systolic Pressu 21.8 mmHg PV Peak Velocity 108.0 cm/s RV Acceleration Time 0.1 s RV Ejection Time 0.3 s RV AcT/ET 0.4 FINDINGS Left Ventricle Normal left ventricular size. LV systolic function is normal with EF of 55-60%. No regional wall motion abnormalities. Normal diastolic filling pattern. Right Ventricle The right ventricle is normal in size and function. Right Atrium The right atrium is normal in size. Left Atrium The left atrium is normal in size. Mitral Valve Thickened mitral valve without significant stenosis or prolapse. There is mild mitral regurgitation. Aortic Valve Aortic valve is thickened without significant stenosis. There is no aortic regurgitation. Tricuspid Valve Structurally normal tricuspid valve without significant stenosis or regurgitation. Pulmonary artery systolic pressure is normal. Pulmonic Valve Structurally normal pulmonic valve without significant stenosis. There is no pulmonic regurgitation. Pericardium Normal pericardium without effusion. Aorta Normal ascending aorta dimension. CONCLUSIONS LV systolic function is normal with EF of 55-60% Normal diastolic function Mild mitral regurgitation Compared to prior echocardiogram from 11/2019, no significant change is noted Gael Harvey MD (Electronically Signed) Final Date: 01 January 2021 10:17 S
[2020-12-31 09:05] LABS: NT Pro B Type Natriuretic Pept 110 pg/mL (0-125); Procalcitonin 0.08 ng/mL (0-0.5)
[2020-12-31 09:16] LABS: Iron 31 ug/dL (37-145); Percent Saturation 9.8 % (20-50); Total Iron Binding Capacity 314 mcg/dl; Unsaturated Iron Binding 283 ug/dL (112-347)
[2020-12-31 09:33] LABS: Salicylate 2.3 mg/dL (3-10)
[2020-12-31 09:40] LABS: Alcohol Level < 10 mg/dL (0-10)
[2020-12-31 09:41] LABS: Thyroid Stimulating Hormone 1.15 uIU/mL (0.27-4.20)
[2020-12-31] MEDS: iohexol 350 mg/mL 100 mL Btl IV (09:59)
--- NOTE | 2020-12-31 10:06 | ECG_ITS ---
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 Measurements Intervals [place] Rate: 98 P: 75 NM: 125 QRS: -45 QRSD: 102 T: 63 QT: 367 QTc: 470 Interpretive Statements SINUS RHYTHM LEFT AXIS DEVIATION [QRS AXIS < -30] Compared to ECG 12/31/2020 05:55:51 Left-axis deviation now present Incomplete right bundle-branch block no longer present Electronically Signed On 12-31-2020 23:23:29 CDT by Gael Harvey M.D. [id number]
[2020-12-31 10:54] LABS: Troponin 5 6HR 42.58 ng/L (0-10)
[2020-12-31 11:11] LABS: Troponin 5 6HR Delta 31.58 ng/L (0-12)
[2020-12-31] MEDS: pantoprazole 40 mg SDV IVP (11:49)
--- NOTE | 2020-12-31 12:14 | P.HP_ITS ---
Providers/Chief Complaint Chief Complaint: chest pain History of Present Illness Ines Gallegos is a 55 year old female with past medical history of COPD/asthma, chronic smoker, hypertension, anxiety presented to the ER today after having one episode of chest heaviness associated with epigastric pain and diaphoresis today morning at 2:30 AM. Patient states he woke up today morning because of coughing bout which seemed like her regular asthma attack which would not go away even after inhalation treatment. She states she has been using more inhalers over last 1 week because of difficulty in breathing but today morning the symptoms were not like her usual COPD exacerbation so she was worried. Denies any current chest pain, nausea, vomiting, dizziness, palpitations. There is a concern of possible unstable angina so medicine was asked to admit under observation for stress test tomorrow morning by ER physician. Blood work in the ER showed a white count 12.7, hemoglobin of 13.2, sodium 140, creatinine of 09, baseline troponin of 13 with delta of 22 in 2 hours and 31 and 6 hours, proBNP of 110. Review of Systems General: Reports: 10 or more systems reviewed and unremarkable except in HPI and below Const: Denies: fever(s), chills, body aches, change in appetite, change in weight, malaise, night sweats, diaphoresis, change in sleep pattern, daytime sleepiness or snoring Eyes: Denies: change in vision, blurry vision, photophobia, eye discomfort or eye discharge ENMT: Denies: throat pain, enlarged tonsils, hoarseness, mouth pain, oral sores, dry mouth, tinnitus, nasal congestion or post nasal drip Card: Denies: chest pain, palpitations, irregular heart rhythm, edema, swelling of feet/ankles, lightheadedness, syncope, pre-syncope, dyspnea on ex ertion, orthopnea, leg pain with exertion or acrocyanosis Resp: Denies: dyspnea, productive cough, non-productive cough, wheezing, stridor, pain on inspiration, change in phlegm color, hemoptysis or chest congestion GI: Denies: abdominal pain, nausea, vomiting, hematemesis, coffee ground e mesis, dysphagia, heartburn, diarrhea, constipation, bloating, GI cramping, change in bowel habits, pain on defecation, hematochezia or melena : Denies: flank pain, dysuria, urinary frequency, urinary urgency, urinary hesitancy, nocturia or hematuria Musc: Denies: neck pain, back pain, extremity pain, joint pain, joint swelling, joint redness, joint stiffness or limited range of motion Neuro: Denies: headache(s), numbness in extremities, weakness in extremities, sensory changes, lack of coordination, difficulty walking, frequent falls, dizziness, vertigo, confusion, Slurred speech present, difficulty communicating thoughts or seizure-like activity Psych: Denies: anxiety, depression, mood swings, panic attacks, hopelessness or irritability Endo: Denies: polyuria, polydipsia, tired all the time, cold intolerance, excessive sweating, flushing or heat intolerance Reji/Lymph: Denies: easy bruising or easy bleeding All/Imm: Denies: tongue swelling, facial swelling or acute wheezing Medications/Allergies Home Medications Medication Instructions Recorded Confirmed Last Taken Type cetirizine [Zyrtec] 10 mg PO DAILY@199905/08/19 12/31/20 09/20/20 History famotidine 10 mg tablet 10 mg PO DAILY@0800 PRN 12/01/19 12/31/20 09/19/20 His tory Atrovent HFA 1 puff INHALATION QID@08,13,17 02/27/20 12/31/20 09/20/20 History ipratropium bromide [Atrovent HFA] 2 inh INHALATION Q8H PRN #12.9 g 03/05/20 12/31/20 09/20/20 Rx albuterol sulfate 90 mcg/actuation 2 puff INHALATION Q6H PRN #8.5 g 05/12/20 12/31/20 09/20/20 Rx aerosol inhaler citalopram [Celexa] 20 mg PO DAILY 09/20/20 12/31/20 09/19/20 History lorazepam [Ativan] 0.5 mg PO QID PRN 09/20/20 12/31/20 09/20/20 History Allergies Allergy/AdvReac Type Severity Reaction Status Date / Time metronidazole [From Flagyl] Allergy Severe ADR-Vomitin Verified 02/21/20 16:28 g codeine Allergy Intermediate ALGY-Anaphy Verified 02/21/20 16:28 laxis doxycycline Allergy Intermediate ALGY-Rash Verified 02/21/20 16:28 lisinopril Allergy Intermediate cough, Verified 02/21/20 16:28 swelling ibuprofen Allergy Unknown Unknown Verified 02/21/20 16:28 PFSH Acute PFSH: Medical History (Updated 12/31/20 @ 12:18 by Earle Arias MD) Cigarette smoker motivated to quit COPD (chronic obstructive pulmonary disease) Depression Essential hypertension with goal blood pressure less than 130/80 Generalized anxiety disorder Nicotine dependence, unspecified, uncomplicated Social History Smoking and tobacco status: current every day smoker cigarettes Packs smoked per day: 0.5 Years cigarettes smoked: 40 [ Other cigarette details: Hx of 1 PPD x 40 Years - Trying to quit ] Quit status (tobacco): has tried quititng Number of times tried to quit tobacco: 5 Second hand smoke exposure: Yes Alcohol intake: never Lives independently: Yes Household members: spouse Marital status: Current occupational status: unemployed History of recent travel: No Current gender identity: Female Vitals/I&O/Wt Last Vital Signs Pulse 70 12/31/20 08:45 Resp 20 H 12/31/20 03:38 BP 131/63 12/31/20 08:45 Pulse Ox 93 12/31/20 08:45 Weight last 48 hrs Weight 74.843 kg Physical Exam Narrative: EXAM NARRATIVE: General: No acute distress, AO x3 HEENT: PERRLA, pupils bilaterally equal and reactive Chest: Bilateral bronchial breath sounds, rhonchi all over the lung nicole, equal good air entry bilaterally CVS: S1-S2 regular, no murmurs, no tachycardia, no gallops, no rubs Abdomen: Soft, nontender, no organomegaly, bowel sounds present Neuro: No focal deficits, no facial deformity, AO x3, power 5/5 in all limbs Data : 12/31/20 03:45 12/31/20 03:45 A&P Assessment and plan (1) Chest heaviness: Status: Acute (2) Essential hypertension with goal blood pressure less than 130/80: Status: Acute (3) COPD (chronic obstructive pulmonary disease): Status: Acute Additional A&P Information Chest heaviness: Most likely secondary to COPD exacerbation. Currently on room air saturating 93%. But having audible wheeze. Patient does have risk factor for CAD with current smoking and hypertension with family history of CAD. Check HbA1c, lipid panel. Patient does have positive tropes without any active chest pain. Aspirin 325 mg stat followed by 81 mg daily, atorvastatin 80 mg daily. N.p.o. after midnight for Lexiscan tomorrow morning. DuoNebs every 6 hour, budesonide twice daily. Solu-Medrol 40 every 8 hours. We will try to wean accordingly. COPD exacerbation: Most likely from viral bronchitis. Saturating well on room air currently. Check flu swab, COVID-19 antigen. Treatment as above. Full code. Protonix for PUD prophylaxis. Low probability of VTE. SCDs. Attestations Medical Necessity Statement*: Admit under observation for management of chest heaviness, rule out CAD, mild COPD exacerbation which can be treated as outpati ent Time Spent in Patient Care: Greater than 35 minutes (>than 50% of time spent in counselling and/or direct pt care on unit) . Coding Level of Care Code Acute Claims Investigator for Lisa Alvad Diagnoses Chest heaviness R07.89 Essential hypertension with goal blood pressure less than 130/80 I10 COPD (chronic obstructive pulmonary disease) J44.9
[2020-12-31 13:04] LABS: Amphetamines Screen Urine Negative (Negative); Barbiturates Screen Urine Negative (Negative); Benzodiazepines Screen Urine Positive (Negative); Cocaine Screen Urine Negative (Negative); Opiate Screen Urine Negative (Negative); PCP Screen Urine Negative (Negative); THC Screen Urine Negative (Negative)
[2020-12-31 13:06] LABS: Bilirubin Urine Neg (Negative); Blood Urine 2+ (Negative); Glucose Urine UA Norm (Normal); Ketones Urine Negative (Negative); Leukocyte Esterase Urine Negative (Negative); Nitrate Urine Negative (Negative); Protein Urine Trace (Negative); RBC Urine 0-4 /hpf (0-2); Urine Appearance Clear (CLEAR); Urine Color Yellow (Yellow); Urobilinogen Urine Norm (Negative); pH Urine 5 (5-7)
[2020-12-31 13:07] LABS: Add Urine Culture? No; Bacteria Urine TRACE /hpf; Squamous Epithelial Cell Urine 0-4 /hpf (0-5)
[2020-12-31] MEDS: ipratropium-albuterol 3 mL Neb INHALATION ×2 (15:07→20:47)
--- NOTE | 2020-12-31 15:56 | P.CONIM_ITS ---
Providers/Reason For Consult Consulting Physician/Specialty*: Gael Harvey MD/ Cardiology Reason for Consult*: Unstable angina Requesting Physician: Dr Arias Attending Physician: Earle Arias MD History of Present Illness History of Present Illness Ines Gallegos is a 55 year old female with PMH of COPD/asthma, current smoker, hypertension presented to hospital with complaints of chest heaviness and diaphoresis. She woke up last night with these symptoms. He has been having chest heaviness symptoms over the last couple of weeks. These appear to have worsened. These are associated with coughing. She cannot differentiate between her anxiety, COPD or chest pain. Her blood pressure is elevated. Review of Systems General: Reports: 10 or more systems reviewed and unremarkable except in HPI and below Narrative: CONSTITUTIONAL: No fever chills weight loss or gain or night sweats. [] HEENT: Normocephalic, atraumatic.[] RESPIRATORY: No cough, sputum, hemoptysis or wheezing.[] CARDIOVASCULAR: No shortness of breath, chest pain, PND, orthopnea, lower extremity edema, presyncope or syncope. [] GI: no nausea vomiting diarrhea. 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 [] MUSCULOSKELETAL: No knee or joint pain or rashes. [] Meds/Allergies Home Medications and Allergies Home Medications Medication Instructions Recorded Confirmed Last Taken Type cetirizine [Zyrtec] 10 mg PO DAILY@199905/08/19 12/31/20 09/20/20 History famotidine 10 mg tablet 10 mg PO DAILY@0800 PRN 12/01/19 12/31/20 09/19/20 History Atrovent HFA 1 puff INHALATION QID@08,13,17 02/27/20 12/31/20 09/20/20 History ipratropium bromide [Atrovent HFA] 2 inh INHALATION Q8H PRN #12.9 g 03/05/20 12/31/20 09/20/20 Rx albuterol sulfate 90 mcg/actuation 2 puff INHALATION Q6H PRN #8.5 g 05/12/2009/20/20 Rx aerosol inhaler citalopram [Celexa] 20 mg PO DAILY 09/20/20 12/31/20 09/19/20 History lorazepam [Ativan] 0.5 mg PO QID PRN 09/20/20 12/31/20 09/20/20 History Allergies Allergy/AdvReac Type Severity Reaction Status Date / Time metronidazole [From Flagyl] Allergy Severe ADR-Vomitin Verified 02/21/20 16:28 g codeine Allergy Intermediate ALGY-Anaphy Verified 02/21/20 16:28 laxis doxycycline Allergy Intermediate ALGY-Rash Verified 02/21/20 16:28 lisinopril Allergy Intermediate cough, Verified 02/21/20 16:28 swelling ibuprofen Allergy Unknown Unknown Verified 02/21/20 16:28 Current Medications Current Medications Generic Name Dose Route Start Last Admin Trade Name Freq PRN Reason Stop Dose Admin Albuterol/Ipratropium 3 ml 12/31/20 12:14 12/31/20 15:07 Ipratropium-Albuterol 3 Ml Neb INHALATION 3 ml Q6H.RESPIRATORY BEBA Administration Aspirin 81 mg 12/31/20 12:14 12/31/20 15:24 Aspirin 81 Mg Ec Tablet PO Not Given DAILY BEBA Methylprednisolone Sodium Succinate 40 mg 12/31/20 12:30 12/31/20 13:20 Methylprednisolone Sod Succ 40 Mg/Ml Inj IVP 40 mg Q8H BEBA Administration Pantoprazole Sodium 40 mg 12/31/20 08:30 12/31/20 11:49 Pantoprazole 40 Mg Sdv IVP 40 mg Q24H BEBA Administration PFSH Acute PFSH: Medical History Cigarette smoker motivated to quit COPD (chronic obstructive pulmonary disease) Depression Essential hypertension with goal blood pressure less than 130/80 Generalized anxiety disorder Nicotine dependence, unspecified, uncomplicated Social History Smoking and tobacco status: current every day smoker cigarettes Packs smoked per day: 0.5 Years cigarettes smoked: 40 [ Other cigarette details: Hx of 1 PPD x 40 Years - Trying to quit ] Quit status (tobacco): has tried quititng Number of times tried to quit tobacco: 5 Second hand smoke exposure: Yes Alcohol intake: never Lives independently: Yes Household members: spouse Marital status: Current occupational status: unemployed History of recent travel: No Current gender identity: Female Vitals/I&O/Wt Last Vital Signs Temp 97.8 F 12/31/20 15:24 Pulse 85 12/31/20 15:24 Resp 28 H 12/31/20 15:24 BP 176/102 12/31/20 15:24 Pulse Ox 91 12/31/20 15:24 Weight last 48 hrs Weight 165 lb Physical Exam Narrative: EXAM NARRATIVE: GENERAL: Patient is alert, awake and oriented x3. [] NECK: No jugular vein distension. [] HEENT: No cyanosis. No icterus. No pallor. [] HEART: Regular S1 and S2. No murmur, rub or gallop. [] LUNGS: Has bilateral wheezing ABDOMEN: Soft, nontender and nondistended. Positive bowel sounds. No guarding, rebound or tenderness. [] CENTRAL NERVOUS SYSTEM: Grossly nonfocal. [] EXTREMITIES: Lower extremities with 1+ edema bilaterally. Pulses palpable in the lower extremities, both dorsalis pedis and posterior tibial. [] Data Micro: Micro: Microbiology 12/31/20 12:40 Legionella Urinary Antigen - Final Unknown Source A&P Assessment and plan (1) Chest heaviness: Status: Acute (2) Essential hypertension with goal blood pressure less than 130/80: Status: Acute (3) COPD (chronic obstructive pulmonary disease): Status: Acute (4) Elevated troponin: Status: Acute Patient has atypical and typical symptoms. Her troponins have trended up. Given her risk factors, symptoms and troponin elevation further ischemic work- up is needed. She refuses to get her stress test. Given her troponin elevation, will proceed with coronary angiogram. We had a discussion with patient regarding risks and benefits of probable procedure. She understands the risks and benefits and wants to proceed with the procedure. Blood pressure is uncontrolled. This could have caused troponin elevation. Low-sodium diet advised. Telemetry Smoking cessation advised NPO past midnight Thank you for involving us with care of this patient. We will continue to foll ow. Please call with questions. Coding Level of Care Code Acute Senior Vice President & General Counsel for Lisa Ibrahim Diagnoses Chest heaviness R07.89 Essential hypertension with goal blood pressure less than 130/80 I10 COPD (chronic obstructive pulmonary disease) J44.9 Elevated troponin R77.8
[2020-12-31] MEDS: citalopram 20 mg Tablet PO (16:33)
[2020-12-31] MEDS: losartan 50 mg Tablet 25 MG PO (16:33)
[2020-12-31] MEDS: metoprolol tartrate 25 mg Tablet PO (16:34)
[2020-12-31] MEDS: LORazepam 0.5 mg Tablet PO ×2 (17:08→21:38)
[2020-12-31] MEDS: ferrous gluconate 324 mg Tablet PO (17:08)
[2020-12-31] MEDS: budesonide 0.5 mg/2 mL Neb INHALATION (20:47)
[2020-12-31] MEDS: hyDRALAzine 20 mg/mL INJ 1 mL 10 MG IVP (20:50)
--- NOTE | 2020-12-31 21:34 | PC.NURSE ---
received from er at 1450.report received.pt denies cp at present.sr on monitor.bp elevated.pt quite anxious.lorazapam,cozaar,metoprolol given as ordered.will cont to observe.dr watt plans cardiac angiogram in am.
[2020-12-31] MEDS: atorvastatin 40 mg Tablet PO (21:38)
[2021-01-01] VITALS (63 sets, daily range): BP systolic 98–144; BP diastolic 51–87; PULSE 76–102; RESP 12–27; TEMP 36.6; O2SAT 90–98
[2021-01-01] MEDS: ipratropium-albuterol 3 mL Neb INHALATION ×4 (02:12→20:30)
[2021-01-01 05:42] LABS: Basophils % 0.3 %; Eosinophils % 0.3 %; Hematocrit 42.2 % (37.0-47.0); Hemoglobin 13.9 g/dL (11.5-15.3); Lymphocytes # 2.1 10^3/uL (0.8-4.8); Mean Corpuscular HGB Conc 32.9 g/dL (30.0-36.0); Mean Corpuscular Hemoglobin 29.6 pg (28.0-34.0); Mean Corpuscular Volume 89.8 fl (81-99); Mean Platelet Volume 11.4 fL (7.4-10.4); Monocytes # 0.8 10^3/uL (0.2-0.9); Monocytes % 6.9 %; Neutrophils # 8.56 10^3/uL (1.8-7.7); Neutrophils % 74.2 %; Nucleated Red Blood Cells % 0 %; Platelet Count 309 10^3/cmm (130-400); Red Cell Distribution Width 12.3 % (12.1-15.1); White Blood Count 11.6 10^3/uL (4.0-10.0)
[2021-01-01 06:14] LABS: Estmated Average Glucose 117; Hemoglobin A1C 5.7 % (4.0-6.0)
[2021-01-01 06:32] LABS: Cholesterol 198 mg/dL (0-200); Creatine Phosphokinase 98 U/L (26-192); HDL Cholesterol 43 mg/dL (60-100); LDL Cholesterol Calculated 129 mg/dL (50-129); Triglycerides 128 mg/dL (0-150); VLDL Cholestrol Calculation 26 mg/dL (0-30)
[2021-01-01 07:02] LABS: Alanine Aminotransferase 17 U/L (0-33); Albumin Level 3.8 g/dL (3.5-5.2); Alkaline Phosphatase 143 IU/L (35-105); Aspartate Amino Transferase 12 U/L (0-32); Blood Urea Nitrogen 14 mg/dL (6-20); Calcium 9.8 mg/dL (8.5-10.5); Carbon Dioxide 20 mmol/L (22-29); Chloride 101 mmol/L (98-107); Globulin 3.5 g/dL (1.3-4.6); Glomerular Filtration Rate 86.6 mL/min (90-130); Glucose 114 mg/dL (65-115); Magnesium 1.9 mg/dL (1.7-2.3); Osmolality Calculated 285 mOsm/kg (285-295); Phosphorus 3.8 mg/dL (2.5-4.5); Sodium 137 mmol/L (136-145); Total Bilirubin 0.2 mg/dL (0.15-1.2); Total Protein 7.3 g/dL (6.6-8.7)
--- NOTE | 2021-01-01 07:33 | XACV_ITS ---
Exam Room: [facility] Ht: 157 cm Wt: 75 kg BSA: 1.84 m2 Gender: Female : 1965 Any Known Allergies: Other Exam Priority: Routine Procedure(s): Procedure Description: Diagnostic procedure Procedure Description: Left ventriculography Procedure Description: Coronary Angiography Diagnostic Cath Status: Urgent Diagnostic Findings * No disease noted in the Left Main, Left Anterior Descending, Right, or Circumflex coronary arteries. * Coronary angiography shows right dominance. Conclusions 1. No disease noted in the Left Main, Left Anterior Descending, Right, or Circumflex coronary arteries. 2. Normal left ventricular systolic function. Ejection fraction of 65%. Recommendations * Aggresive risk factor modification. * Outpatient cardiology follow up. Interventional RX Recommendation: medical therapy and/or counseling Diagnostic RX Recommendation: medical therapy and/or counseling Ventriculography Ejection Fraction: 65.0 % Pressures Phase:Rest AO : 158 / 86 ( 68 ) @ 9:54:00 AM 100 / 75 ( 69 ) @ 9:56:00 AM LV : 127 / -16 / 5 @ 9:59:00 AM 158 / 100 / 18 @ 10:00:00 AM 126 / -11 / 9 @ 10:00:00 AM 110 / 59 / 63 @ 10:00:00 AM Clinical Evaluation EBL: 5mL-10mL Procedural Details Procedure Consent Obtained. Pre-Procedure Time Out. Identified patient by full name and date of as verbalized by the patient/guarantor. Does the consent match the physician's order: Yes. Accurate & Complete Informed Consent: Yes. Inpatient/Outpatient History & Physical on Chart: Yes. If H&P is completed, is and addenduem needed: No; If yes, is the addendum complete: N/A. Visualize and Verify Site with Patient/Guarantor: N/A. Relevant Radiology Images available: Yes. Pre-op teaching completed and patient verbalized understanding. The risks, benefits, and alternatives of sedation and/or procedure were discussed by physician. The patient agrees to continue. Procedure started. Correct patient, site and procedure confirmed by cath team. Current diagnosis: Chest Pain. PERRLA. Strong, equal hand mobile ui developer bilaterally. Lungs clear x 5 lobes. IV Site on Arrival: 20 gauge in the left anticubital. IV Fluids: 0.9% NaCl at KVO. 0 mL infused prior to pharmacy laboratory technician. Pre Procedural Pulses: bilateral dorsalis pedis was 2+. Pre Procedural Pulses: bilateral posterior tibial was 2+. Pre Procedural Pulses: bilateral radial was 3+. Oxygen started at 2liters/min via nasal canula. bilateral groins was prepped with chloroprep then draped in the usual sterile fashion. right radial was prepped with chloroprep then draped in the usual sterile fashion. Physician notified. Baseline sample Acquired. HR: 84 BPM. Physician arrived. Equipment: 6F - Radial. [employer] Manifold Kit Model BT 2000. Cardiac Cath Pack. Heparinized Saline (2 units/mL), 1000 mL bag. Physician scrubbed in. Immediate Pre-Procedure Time Out. Correct Patient: Yes; Correct Procedure: Yes; Correct Site: Yes; Correct Patient Position: Yes; Correct Supplies: Yes; Dried Flammable Prep: Yes; Blood Products Available: No;. Lidocaine 1% infiltrated to the right radial. Arterial access obtained. A 6 dutch TIG catheter in over wire. Multiple views taken of left coronary artery. Catheter redirected to the RCA. Multiple views taken of right coronary artery. Catheter out. A 6 dutch Angled Pig catheter in over wire. EDP Sample taken: LV 127/-17,5; HR: 85 BPM; SpO2: 93%. LV gram performed in DONATO @ 10 mL/second for a total of 30 mL. EDP Sample taken: LV 158/100,18; HR: 82 BPM; SpO2: 93%. EDP Sample taken: LV 126/-12,9; HR: 82 BPM; SpO2: 93%. Pullback taken: AO Off; LV Off; Mean: , Peak to Peak: , SEP: ; HR: 84 BPM; SpO2: 93%. Catheter out. TR band placed. Hemostasis obtained. Post Procedure: Pulses reassessed and unchanged. PERRLA. Strong, equal hand mobile ui developer bilaterally. No VTE prophylaxis required. Vital chart was stopped. Post-op diagnosis: Normal Coronaries. Complications: None. Estimated blood loss: 5mL-10mL. Medication's Wasted: Lidocaine 1% = 18 mg. Medication's Wasted: Nitro = 49.8 mg. Medication's Wasted: Heparin = 1000 units. Medication's Wasted: Other = Versed 1 mg. Total IV fluids: 34 mL. Contrast type used: Omnipaque 300 mgI/mL, 500 mL bottle. Procedure completed. Patient transferred by wheelchair to 1st floor. Access Site Site: Right Radial artery Sheath Size: 6 Fr Hemostasis Success: Unsuccessful Procedure Medications Start: 10:35 AM Stop: 10:35 AM Medication: Versed Amount: 1 mg Route: I.V. Start: 10:35 AM Stop: 10:35 AM Medication: Fentanyl Amount: 50 mcg Route: I.V. Start: 10:38 AM Stop: 10:38 AM Medication: Versed Amount: 1 mg Route: I.V. Start: 10:42 AM Stop: 10:42 AM Medication: Versed 1 mg and Fentanyl 25 mcg Amount: 1 Route: I.V. Start: 10:48 AM Stop: 10:48 AM Medication: Versed 1 mg and Fentanyl 25 mcg Amount: 1 Route: I.V. Start: 10:51 AM Stop: 10:51 AM Medication: Versed Amount: 1 mg Route: I.V. Start: 10:54 AM Stop: 10:54 AM Medication: Heparin Amount: 5000 units Route: I.V. I, the attending physician, have reviewed and verified all procedure medications. Yes, all medications given per verbal order History/Risk Factors Hypertension: Yes Dyslipidemia: No Peripheral Arterial Disease (PAD): No Myocardial Infarction (MN): No Obesity: No Renal Disease: No Tobacco Use: Current/Recent(w/in 1 year) Prior Interventions CABG: No Valve Surgery: No Report Signatures Finalized by Gael Harvey MD on 01/15/2021 09:14 PM
[2021-01-01] MEDS: aspirin 81 mg EC Tablet PO (08:20)
[2021-01-01] MEDS: LORazepam 0.5 mg Tablet PO (08:20)
[2021-01-01] MEDS: losartan 50 mg Tablet 25 MG PO (08:20)
[2021-01-01] MEDS: pantoprazole 40 mg SDV IVP (08:21)
[2021-01-01] MEDS: ferrous gluconate 324 mg Tablet PO ×2 (08:21→18:33)
[2021-01-01] MEDS: budesonide 0.5 mg/2 mL Neb INHALATION ×2 (08:39→20:30)
--- NOTE | 2021-01-01 09:30 | PC.NURSE ---
Pt lying in bed resting with eyes open talking to staff. Pt very anxious asking the same questions over and over. Pt had no c/o pain or discomfort at the present time. Call light in reach. Will cont to monitor.
--- NOTE | 2021-01-01 09:40 | PC.CHAP ---
Pastoral Care Encounter/Spiritual Assessment Type of Contact [] Declined deoiling machine operator visit [] Patient/Family/Request visit [] Outpatient visit [] Follow-up visit [] Physician referral [] Code/Alert [x] Routine visit [] Staff referral [] Actively dying [] Patient sleeping [x] Family support [] [] Out of room [] Palliative care [] [x] Receiving care in room [] Pre-surgical visit [] Trauma [] Long length of stay [] ICU visit [] Other: Relational/Emotional Strength [] Patient feels connected with others/family/visitors/staff [] Distress [] Loneliness/isolation [] Abandonment Spirituality of Patient [] Person of Leydi [] Attends Jehovah'S Witness of their Leydi [] Believes in Prayer [] Reads Bible or Yarsanism materials [] There are Spiritual issues to be addressed Product Development Engineer Interventions [x] Prayer [x] Active listening [x] Non-anxious presence [x] Spiritual/emotional support [] Crisis/trauma care [] Spiritual counseling [] Bereavement support [] Provided bereavement packet [] Provided Bible/devotional materials [] Provided toy/stuffed animal, coloring book to patient or family member [] Provided Communion [] Anointing/[place] [] Salvation [x] Completed spiritual assessment [] Other: Impact on Illness or Injury [] Angry [] Fearful [] Anxious [] Often cries [] Exhaustion [] Unable to work [] Unable to attend voodoo [] Unable to walk/stand [] Unable to read [] Unable to drive [] Unable to eat/drink [] Unable to sleep [] Unable to be with family [] Patient intubated [] Other: Summary daughter is an RN, prayed for patient with staff member and family.... Time spent with patient 10 min
[2021-01-01 10:12] LABS: SARS Covid-2 Antigen Negative (Negative)
--- NOTE | 2021-01-01 10:29 | W.PM.OPSUD ---
Surgery/Procedure H&P Update DATE OF PROCEDURE: January 01, 2021 DATE H&P PERFORMED: 12/31/20 H&P UPDATE INFORMATION: I have reviewed H&P completed within last 30 days, I have examined patient prior to procedure and No changes to prior documentation PREOP DIAGNOSIS: Unstable angina PRIMARY INDICATION FOR PROCEDURE: Unstable angina PLANNED PROCEDURE: Left heart cath with possible percutaneous coronary intervention PATIENT REASSESSED PRIOR TO SEDATION, WITH NO CHANGE NOTED: Yes PHYSICAL EXAM: alert, oriented x 3, clear to auscultation bilaterally and regular rate & rhythm AIRWAY EVAL/ANESTHESIA PLAN: ASA III, Monitored Anesthesia, Local Anesthesia, Risks, benefits & alternatives of sedation and/or procedure discussed and Patient agrees to continue as planned
--- NOTE | 2021-01-01 11:40 | PC.NURSE ---
Pt returned from prosthetic lab technician at approximately 1115. Pt had right TR band on. No hematoma, swelling or bleeding noted. Radial pulse palpable and full, capillary refill less than 3 seconds, skin warm to right hand. Pts vital signs wnl. Pt had no c/o pain or discomfort at the present time. Call light in reach. Will continue to monitor.
--- NOTE | 2021-01-01 12:57 | PM.PN ---
Subjective Subjective: Interval history: Patient underwent coronary angiogram today that showed no significant coronary artery disease. LV systolic function is normal both on echo and LV gram. Vitals/I&O/Wt Last Vital Signs Temp 98 F 01/01/21 04:00 Pulse 83 01/01/21 08:39 Resp 20 H 01/01/21 08:39 BP 144/76 01/01/21 08:34 Pulse Ox 94 01/01/21 08:39 Weight last 48 hrs Weight 166 lb Weight 165 lb Physical Exam Narrative: EXAM NARRATIVE: GENERAL: Patient is alert, awake and oriented x3. [] NECK: No jugular vein distension. [] HEENT: No cyanosis. No icterus. No pallor. [] HEART: Regular S1 and S2. No murmur, rub or gallop. [] LUNGS: Has bilateral wheezing ABDOMEN: Soft, nontender and nondistended. Positive bowel sounds. No guarding, rebound or tenderness. [] CENTRAL NERVOUS SYSTEM: Grossly nonfocal. [] EXTREMITIES: Lower extremities with 1+ edema bilaterally. Pulses palpable in the lower extremities, both dorsalis pedis and posterior tibial. [] Data : 01/01/21 05:20 01/01/21 05:20 Micro: Microbiology 12/31/20 12:40 Legionella Urinary Antigen - Final Unknown Source A&P Assessment and plan (1) Chest heaviness: Status: Acute (2) Essential hypertension with goal blood pressure less than 130/80: Status: Acute (3) COPD (chronic obstructive pulmonary disease): Status: Acute (4) Elevated troponin: Status: Acute Patient had presented with chest discomfort symptoms with a mild elevation of troponins. She underwent coronary angiogram today that did not show any significant coronary artery disease. Troponin elevation likely secondary to demand ischemia with elevated blood pressure. Aggressive blood pressure control. Low-sodium diet advised. Telemetry Smoking cessation advised Thank you for involving us with care of this patient. Patient is ready to be discharged from cardiology standpoint. Please call with questions. Attestations Medical Necessity Statement*: Care expected to cross 2 midnights. Coding Level of Care Code Acute Crystallizer Operator for Lisa Ibrahim Diagnoses Chest heaviness R07.89 Essential hypertension with goal blood pressure less than 130/80 I10 COPD (chronic obstructive pulmonary disease) J44.9 Elevated troponin R77.8
--- NOTE | 2021-01-01 15:45 | PC.NURSE ---
TR Band removed. Pt tolerated well. No hematoma, swelling or bleeding noted. Drsg in place dry and intact. Radial pulse palpable and full. Cap refill less than 3 sec, hand warm distal to Drsg. Pt had no c/o pain or discomfort at the present time. No needs voiced. Call light in reach.
--- NOTE | 2021-01-01 17:11 | PC.RESP ---
SMOKING CESSATION AND PULMONARY REHAB INFORMATION SENT TO PATIENT.
--- NOTE | 2021-01-01 18:57 | P.PN_ITS ---
Subjective Subjective: Interval history: Patient was seen and examined this morning. Denies any chest pain, shortness of breath. Status post cardiac cath Her other vitals and labs have been reviewed Medications: Reviewed: Yes Vitals/I&O/Wt Last Vital Signs Temp 98 F 01/01/21 04:00 Pulse 87 01/01/21 18:52 Resp 18 01/01/21 18:52 BP 107/51 01/01/21 14:30 Pulse Ox 93 01/01/21 18:52 Weight last 48 hrs Weight 75.296 kg Weight 74.843 kg Physical Exam Const: COMMON NORMALS: patient oriented x3 HENMT: COMMON NORMALS: normocephalic and atraumatic HEAD & SCALP: normocephalic and atraumatic Resp: OTHER: Minimal bilateral wheezing Cardio: COMMON NORMALS: regular rate, regular rhythm, S1 normal heart sound present, S2 normal heart sound present, No gallops present (Cardio), No murmurs present (Cardio), No rub (Cardio) and Peripheral pulses 2+ throughout RATE: regular rate RHYTHM: regular rhythm HEART SOUNDS: S1 normal heart sound present and S2 normal heart sound present PERIPHERAL PULSES: Peripheral pulses 2+ throughout GI: COMMON NORMALS: Normal to inspection, nondistended, normoactive bowel sounds present, Soft to palpation, non-tender, No hepatosplenomegaly present and no masses AUSCULTATION: Yes normoactive bowel sounds PALPATION: Yes Soft to palpation and Yes No hepatosplenomegaly present RECTAL EXAM: deferred Extremity: COMMON NORMALS: no clubbing, cyanosis or edema and no pedal edema Neuro: COMMON NORMALS: patient oriented x3 Data : 01/01/21 05:20 01/01/21 05:20 A&P Assessment and plan (1) NSTEMI (non-ST elevated myocardial infarction): NSTEMI type II: Secondary demand ischemia. 2D echo: LV systolic function is normal with EF of 55-60%. Normal diastolic function. Mild mitral regurgitation. Coronary angiogram: Nonocclusive coronary artery disease. Continue aspirin statin, losartan, metoprolol. Status: Acute (2) COPD (chronic obstructive pulmonary disease): CTA chest: No PE Continue DuoNeb Prednisone 20 mg p.o. daily, for 5 days Status: Acute (3) Essential hypertension with goal blood pressure less than 130/80: Continue losartan Status: Acute Attestations Medical Necessity Statement*: Patient needs to be in hospital for management of chest pain. Coding Level of Care Code Acute [place] Fishing Crew Member for g Fwd Exam Detailed Diagnoses NSTEMI (non-ST elevated myocardial infarction) I21.4 COPD (chronic obstructive pulmonary disease) J44.9 Essential hypertension with goal blood pressure less than 130/80 I10
[2021-01-01] MEDS: atorvastatin 40 mg Tablet PO (20:43)
[2021-01-02] VITALS (56 sets, daily range): BP systolic 124–154; BP diastolic 64–87; PULSE 68–94; RESP 13–17; TEMP 36.6; O2SAT 90–97
[2021-01-02] MEDS: ipratropium-albuterol 3 mL Neb INHALATION ×2 (02:08→09:31)
[2021-01-02 05:03] LABS: Basophils # 0.1 10^3/uL (0.0-0.1); Basophils % 0.8 %; Eosinophils # 0.4 10^3/uL (0.0-0.8); Eosinophils % 4.1 %; Hematocrit 40.7 % (37.0-47.0); Hemoglobin 12.5 g/dL (11.5-15.3); Lymphocytes # 4.1 10^3/uL (0.8-4.8); Lymphocytes % 38.7 %; Mean Corpuscular HGB Conc 30.7 g/dL (30.0-36.0); Mean Corpuscular Hemoglobin 28.5 pg (28.0-34.0); Mean Corpuscular Volume 92.7 fl (81-99); Mean Platelet Volume 11.1 fL (7.4-10.4); Monocytes # 0.6 10^3/uL (0.2-0.9); Monocytes % 5.8 %; Neutrophils # 5.29 10^3/uL (1.8-7.7); Neutrophils % 50.3 %; Nucleated Red Blood Cells % 0 %; Platelet Count 251 10^3/cmm (130-400); Red Blood Count 4.39 10^6/uL (4.1-5.3); Red Cell Distribution Width 12.5 % (12.1-15.1); White Blood Count 10.5 10^3/uL (4.0-10.0)
[2021-01-02] MEDS: LORazepam 0.5 mg Tablet PO ×2 (05:31→12:12)
[2021-01-02 05:32] LABS: Anion Gap 13.7 (5-19); Blood Urea Nitrogen 17 mg/dL (6-20); Calcium 9.1 mg/dL (8.5-10.5); Carbon Dioxide 24 mmol/L (22-29); Chloride 107 mmol/L (98-107); Glomerular Filtration Rate 64.8 mL/min (90-130); Glucose 100 mg/dL (65-115); Osmolality Calculated 294 mOsm/kg (285-295); Potassium 3.7 mmol/L (3.5-5.1); Sodium 141 mmol/L (136-145)
--- NOTE | 2021-01-02 06:05 | PC.NURSE ---
Patient still refusing to get a covid test done. Refused on admission and still does not want one. States that she had the vaccine in may and has no symptoms.
--- NOTE | 2021-01-02 06:07 | PC.NURSE ---
Frequent safety and comfort rounds continue. Orders and/or nursing care completed as indicated. Patient monitored for response to intervention and treatment(s). Education provided includes leaving telemetry leads on so proper monitoring can be done. Patient and/or telemarketing representative verbalizes understanding. Will continue to monitor.
--- NOTE | 2021-01-02 07:06 | P.PN_ITS ---
Subjective Subjective: Interval history: Patient is doing well. Cath did not show significant CAD. Vitals/I&O/Wt Last Vital Signs Temp 98 F 01/02/21 00:00 Pulse 73 01/02/21 05:46 Resp 15 01/02/21 05:40 BP 143/87 01/02/21 05:40 Pulse Ox 92 01/02/21 05:40 Weight last 48 hrs Weight 165 lb 8 oz Weight 166 lb Physical Exam Narrative: EXAM NARRATIVE: GENERAL: Patient is alert, awake and oriented x3. [] NECK: No jugular vein distension. [] HEENT: No cyanosis. No icterus. No pallor. [] HEART: Regular S1 and S2. No murmur, rub or gallop. [] LUNGS: Has bilateral wheezing ABDOMEN: Soft, nontender and nondistended. Positive bowel sounds. No guarding, rebound or tenderness. [] CENTRAL NERVOUS SYSTEM: Grossly nonfocal. [] EXTREMITIES: Lower extremities with 1+ edema bilaterally. Pulses palpable in the lower extremities, both dorsalis pedis and posterior tibial. [] Data : 01/02/21 04:52 01/02/21 04:52 A&P Assessment and plan (1) Chest heaviness: (2) Essential hypertension with goal blood pressure less than 130/80: Status: Acute (3) COPD (chronic obstructive pulmonary disease): (4) Elevated troponin: Patient had presented with chest discomfort symptoms with a mild elevation of troponins. She underwent coronary angiogram yesterday that did not show any significant coronary artery disease. Troponin elevation likely secondary to demand ischemia with elevated blood pressure. Medical therapy Aggressive blood pressure control. Low-sodium diet advised. Smoking cessation advised Thank you for involving us with care of this patient. Patient is ready to be discharged from cardiology standpoint. Please call with questions. Attestations Medical Necessity Statement*: Care expected to cross 2 midnights. Coding Level of Care Code Acute Assistant Elementary Teacher for Lisa Ibrahim Diagnoses Chest heaviness R07.89 Essential hypertension with goal blood pressure less than 130/80 I10 COPD (chronic obstructive pulmonary disease) J44.9 Elevated troponin R77.8
[2021-01-02] MEDS: budesonide 0.5 mg/2 mL Neb INHALATION (09:31)
[2021-01-02] MEDS: aspirin 81 mg EC Tablet PO (10:19)
[2021-01-02] MEDS: ferrous gluconate 324 mg Tablet PO (10:19)
[2021-01-02] MEDS: losartan 50 mg Tablet 25 MG PO (10:19)
[2021-01-02] MEDS: pantoprazole 40 mg SDV IVP (10:20)
[2021-01-02] MEDS: predniSONE 20 mg Tablet PO (10:20)
[2021-01-02] MEDS: citalopram 20 mg Tablet PO (10:32)
--- NOTE | 2021-01-02 12:31 | PM.DCS ---
Discharge Providers Date of Admission: 12/31/20 16:10 Date of Discharge: January 02, 2021 Attending Provider at Admission: Earle Arias MD Attending Provider at Discharge: Jp Stone MD Diagnoses at Discharge Discharge Diagnosis (1) NSTEMI (non-ST elevated myocardial infarction): Status: Acute (2) COPD (chronic obstructive pulmonary disease): Status: Acute (3) Essential hypertension with goal blood pressure less than 130/80: Status: Acute Reason for Visit Reason for Visit: chest pain Hospital Course Hospital Course 55 year old female with past medical history of COPD/asthma, chronic smoker, hypertension, anxiety presented to the ER today after having one episode of chest heaviness associated with epigastric pain and diaphoresis today morning at 2:30 AM. Patient states he woke up today morning because of coughing bout which seemed like her regular asthma attack which would not go away even after inhalation treatment. She states she has been using more inhalers over last 1 week because of difficulty in breathing but today morning the symptoms were not like her usual COPD exacerbation so she was worried. Denies any current chest pain, nausea, vomiting, dizziness, palpitations. There is a concern of possible unstable angina so medicine was asked to admit under observation for stress test tomorrow morning by ER physician. Blood work in the ER showed a white count 12.7, hemoglobin of 13.2, sodium 140, creatinine of 09, troponin trend with significant delta, proBNP of 110.She was admitted for the management of NSTEMI, she underwent cardiac cath: Which showed nonocclusive coronary artery disease, 2D echo: LV systolic function is normal with EF of 55-60%. Normal diastolic function. Mild mitral regurgitation. Likely elevated troponin secondary to demand ischemia, discharge diagnosis is NSTEMI type II. For history of COPD she was continued on duo nebs IV steroids , which was later switched to prednisone 20 mg p.o. daily on discharge for additional 5 days, she was also discharged on azithromycin to 250 mg p.o. daily for additional 4 days.CTA chest was negative for PE.She will continue with her home inhalers. She wanted to follow Dr. Wallis as an outpatient in [place], as that is near her home She has been seeing currently as an outpatient. For her hypertension she has been continued on losartan 25 mg p.o. daily.Patient responded well to the above medical management and is being discharged in stable condition.She will continue to follow-up with her primary care physician as an outpatient. Physical Exam Const: COMMON NORMALS: patient oriented x3 HENMT: COMMON NORMALS: normocephalic and atraumatic HEAD & SCALP: normocephalic and atraumatic Resp: OTHER: Minimal bilateral wheezing Cardio: COMMON NORMALS: regular rate, regular rhythm, S1 normal heart sound present, S2 normal heart sound present, No gallops present (Cardio), No murmurs present (Cardio), No rub (Cardio) and Peripheral pulses 2+ throughout RATE: regular rate RHYTHM: regular rhythm HEART SOUNDS: S1 normal heart sound present and S2 normal heart sound present PERIPHERAL PULSES: Peripheral pulses 2+ throughout GI: COMMON NORMALS: Normal to inspection, nondistended, normoactive bowel sounds present, Soft to palpation, non-tender, No hepatosplenomegaly present and no masses AUSCULTATION: Yes normoactive bowel sounds PALPATION: Yes Soft to palpation and Yes No hepatosplenomegaly present RECTAL EXAM: deferred Extremity: COMMON NORMALS: no clubbing, cyanosis or edema and no pedal edema Neuro: COMMON NORMALS: patient oriented x3 Discharge Data Data Completed and Pending: Completed Studies During Hospitalization Category Date Time Status CT angio chest PE protcl [id number] Urge nt Cat Scan 12/31/20 08:24 Completed XR chest 1V emily ble [id number] Stat Exams 12/31/20 03:22 Completed CV. echo complete * [id number] Routine Ultrasound 12/31/20 08:24 Completed Pending at discharge Category Date Time Status DATA SOLUTIONS ARCHITECT request for service Routin e Exams 01/01/21 07:33 Taken Sestamibi Stress Test Request Stat Exams 12/31/20 08:30 Stop Req Influenza A&B by IFA Routine Lab 12/31/20 12:14 Uncollected MRSA by PCR Routi ne Lab 12/31/20 08:24 Uncollected SARS Covid-2 Anti gen Routine Lab 01/01/21 08:37 Ordered Labs from last 24 hours 01/02/21 01/02/21 04:52 04:52 WBC 10.5 H RBC 4.39 Hgb 12.5 Hct 40.7 MCV 92.7 MCH 28.5 MCHC 30.7 D RDW 12.5 Plt Count 251 MPV 11.1 H Neut % (Auto) 50.3 Lymph % (Auto) 38.7 [place] % (Auto) 5.8 Eos % (Auto) 4.1 Baso % (Auto) 0.8 Neut # (Auto) 5.29 Lymph # (Auto) 4.1 [place] # (Auto) 0.6 Eos # (Auto) 0.4 Baso # (Auto) 0.1 Nucleated RBC % (a uto) 0 Nucleated RBCs # 0.0 Sodium 141 Potassium 3.7 Chloride 107 Carbon Dioxide 24 Anion Gap 13.7 BUN 17 Creatinine 0.9 GFR Calculation 64.8 L Glucose 100 Calculated Osmolal ity 294 Calcium 9.1 Vitals: Last Vital Signs Temp 98 F 01/02/21 00:00 Pulse 80 01/02/21 09:31 Resp 17 01/02/21 09:31 BP 154/85 01/02/21 10:19 Pulse Ox 95 01/02/21 09:31 Discharge Plan Discharge Patient Disposition: Home Condition: Stable Prescriptions: New losartan 50 mg Tablet 25 mg PO DAILY 30 Days Qty: 30 RF: 3 prednisone 20 mg Tablet 20 mg PO DAILY 5 Days Qty: 5 RF: 0 azithromycin 250 mg tablet 250 mg PO DAILY 4 Days Qty: 4 RF: 0 Tessalon Perles 100 mg capsule 100 mg PO BID PRN (Reason: cough) Qty: 14 RF: 0 Continued famotidine 10 mg tablet 10 mg PO DAILY@0800 PRN (Reason: STOMACH ISSUES) RF: 0 albuterol sulfate 90 mcg/actuation HFA aerosol inhaler 2 puff INHALATION Q6H PRN (Reason: shortness of breath or wheezing) Qty: 8.5 RF: 0 cetirizine [Zyrtec] 10 mg Tablet 10 mg PO DAILY@1999 RF: 0 citalopram [Celexa] 20 mg Tablet 20 mg PO DAILY RF: 0 lorazepam [Ativan] 0.5 mg Tablet 0.5 mg PO QID PRN (Reason: Anxiety) RF: 0 Atrovent HFA 17 mcg/actuation HFA aerosol inhaler 1 puff INHALATION QID@,, RF: 0 Discontinued Atrovent HFA 17 mcg/actuation HFA aerosol inhaler 2 inh inhalation Q8H PRN (Reason: shortness of breath or wheezing) Qty: 12.9 RF: 3 Discharge Orders: Discharge Order (Routine); Ordered 01/02/21 Ordered By: Jp Stone Referrals: Nicole Cazares FNP [Nurse Practitioner] - (Please follow-up with Nicole Cazares on at 2:00P.M. If you have any questions or need to reschedule. Please call ) Yazmin Wallis MD [Physician] - 7-10 days (Please follow-up with Dr. Wallis on at 3:00P.M. If you have any questions or need to reschedule. Please call ) Discharge Diet: Regular Discharge Activity: Resume usual activity Patient Instructions: Benzonatate (By mouth) (Naty Crews), Prednisone (By mouth), Azithromycin (By mouth), Losartan (By mouth), Chest Pain (DC), COPD Stoplight, Opioid Safety Discharge Attestations Time Spent in Discharge Care*: less than 30 min Specific Discharge Activities: educating patient, educating and/or supporting family/caregiver, discussing with pcp/other providers, discussing with watch case polisher/social workers/dc planners, documenting/other paperwork and evaluating patient/reviewing data Time Spent in Smoking Cessation: 3 to 10 minutes Status at Discharge: Cognitive status at discharge: cognitively intact, Behavioral status at discharge: cooperative, Quality Metrics Clinical Quality Measures During this hospital stay, did patient experience: None Coding Level of Care Code Acute Chg FW DC note Exam Detailed Diagnoses NSTEMI (non-ST elevated myocardial infarction) I21.4 COPD (chronic obstructive pulmonary disease) J44.9 Essential hypertension with goal blood pressure less than 130/80 I10
--- NOTE | 2021-01-02 15:00 | PC.NURSE ---
Pt discharged home. IV removed no redness or swelling noted. Pt discharge instructions given along with prescriptions and follow up appointments. Pt had no pain or discomfort at the time of discharge.
--- NOTE | 2021-01-05 08:09 | PC.SOCIAL ---
discharge follow up call made, spoke with patient. patient reports her incision site from cath, clean and dry free from redness. discussed lifting restriction of 5 lbs x5 days discuss with roxanne reardon at follow up when. patient denies chest pain or sob. patient picked up all new medications from the pharmacy and she is taking as directed. patient is aware of follow up appointment with roxanne reardon and dr turner. no questions voiced.
== END 2021-01-02 14:25 | disposition home or self-care (01) | DRG 281 ==
LOC: ER 07:23 → CSU 16:29
PROVIDERS: Internal Medicine; Admitting Provider Student in an Organized Health Care Education/Training Program; Emergency Provider Emergency Medicine; Visit Provider Internal Medicine
PROC: B2111ZZ Fluoroscopy of Multiple Coronary Arteries using Low Osmolar Contrast (ICD-10-PCS; principal; 2021-01-01 10:15)
DX: I21.A1 Myocardial infarction type 2 (principal); J44.0 Chronic obstructive pulmonary disease with (acute) lower respiratory infection; J44.1 Chronic obstructive pulmonary disease with (acute) exacerbation; F17.210 Nicotine dependence, cigarettes, uncomplicated; J20.9 Acute bronchitis, unspecified; I10 Essential (primary) hypertension; F41.1 Generalized anxiety disorder; F32.A Depression, unspecified; Z82.49 Family history of ischemic heart disease and other diseases of the circulatory system; I25.10 Atherosclerotic heart disease of native coronary artery without angina pectoris; Z79.51 Long term (current) use of inhaled steroids
CPT/HCPCS: 36415; 71045; 71275; 80048; 80053; 80061; 80306; 80307; 81001; 82550; 83036; 83540; 83550; 83735; 83880; 84100; 84145; 84443; 84484; 85025; 85378; 87426; 87449; 93005; 93306; 93458; 94640; 96372; 96374; 99285; C1769; C1887; C1894; C9113; G0378; J0360; J1200; J1644; J1650; J2250; J2920; J3010; J3490; J7030; J7512; J7611; J7626; Q9967

== ENCOUNTER → 2021-01-09 15:06 | Outpatient (BNVA) | payer OTHER, SELFPAY | PROVIDERS: PCP Family Medicine; Visit Provider Nurse Practitioner Family | DX: I21.4 Non-ST elevation (NSTEMI) myocardial infarction (principal); Z09 Encounter for follow-up examination after completed treatment for conditions other than malignant neoplasm; I10 Essential (primary) hypertension | CPT/HCPCS: 80048 ==

== ENCOUNTER 2021-03-20 10:50 | Emergency (ER) | payer OTHER, SELFPAY ==
--- NOTE | 2021-03-20 10:55 | XR_ITS ---
WS: [id number] Portable AP upright chest, 03/20/2021 Clinical Data: cough, sob Comparison: Portable chest, 12/31/2020. Findings: No nodules, masses or effusions are seen. The heart is normal. The pulmonary vascularity is not increased. No pneumonia or pneumothorax is seen. XR/XR chest 1V portable [id number] Impression: Negative chest.
[2021-03-20 10:57] VITALS: BP 143/82; PULSE 95; RESP 20; TEMP 37.2; O2SAT 97; BMI 29.2
--- NOTE | 2021-03-20 12:58 | ED_ITS ---
HPI - SOB/Dyspnea General: Chief Complaint: Shortness of Breath/Dyspnea Stated Complaint: wheezing, cough, sob Time Seen by Provider: 03/20/21 12:44 Source: patient Mode of arrival: ambulatory History of Present Illness: HPI Narrative: 55-year-old female with history of COPD presenting with worsening cough, wheezing, congestion and dyspnea on exertion over the past week. Has been using her nebulizer every 4 hours, feels like is not working anymore. Symptoms are worse at night. No fever, Occasionally productive Recent COVID-19 exposure, was tested 03/14/2021: Negative. She had been started on trilogy for prevention, but has not been taking it because it gives her headache, so she has been on no preventative MD elicited complaint: shortness of breath and cough Pertinent past history: COPD Onset (ago): day(s) Timing: progressively worsening Associated symptoms: Deny fever(s) Review of Systems General: Reports: 10 or more systems reviewed and unremarkable except in HPI and below Const: Reports: body aches; Denies: fever(s) or chills PFSH ED PFSH: Medical History Chest heaviness Cigarette smoker motivated to quit COPD (chronic obstructive pulmonary disease) Depression Elevated troponin Essential hypertension with goal blood pressure less than 130/80 Generalized anxiety disorder Nicotine dependence, unspecified, uncomplicated NSTEMI (non-ST elevated myocardial infarction) Social History Smoking and tobacco status: current every day smoker cigarettes Packs smoked per day: 0.5 Years cigarettes smoked: 40 [ Other cigarette details: Hx of 1 PPD x 40 Years - Trying to quit ] Quit status (tobacco): has tried quititng Number of times tried to quit tobacco: 5 Second hand smoke exposure: Yes Alcohol intake: never Lives independently: Yes Household members: spouse Marital status: Current occupational status: unemployed History of recent travel: No Current gender identity: Female Physical Exam Const: COMMON NORMALS: no acute distress, average body habitus and patient oriented x3 HENMT: COMMON NORMALS: normocephalic and atraumatic HEAD & SCALP: normocephalic and atraumatic FACE & SINUS: normal facial exam and face symmetric Eye: COMMON NORMALS: Equal, round and reactive pupils present, EOMs intact bilaterally and conjunctivae normal CONJUNCTIVA: Yes conjunctivae normal PUPIL: Yes Equal, round and reactive pupils present Neck/C-Spine: COMMON NORMALS: full ROM, no lymphadenopathy and no JVD Chest: COMMONS NORMALS: normal inspection of the chest Resp: COMMON NORMALS: normal respiratory effort, No retractions and No use of accessory muscles EFFORT & INSPECTION: Yes able to speak in complete sentences AUSCULTATION: diminished lung sounds bilateral Cardio: COMMON NORMALS: no JVD, regular rate and regular rhythm RATE: regular rate RHYTHM: regular rhythm GI: COMMON NORMALS: Soft to palpation and non-tender PALPATION: Yes Soft to palpation Extremity: COMMON NORMALS: normal to inspection, full ROM, capillary refill normal and no clubbing, cyanosis or edema Neuro: COMMON NORMALS: patient oriented x3, CN's II-XII intact bilaterally, moves all extremities and no focal motor deficits Skin: COMMON NORMALS: no rashes or lesions noted, no wounds and turgor normal GENERAL SKIN EXAM: no rashes or lesions noted and turgor normal Course Vital Signs: Vital signs: Vital Signs Temperature 99.0 F 03/20/21 10:57 Pulse Rate 95 03/20/21 10:57 Respiratory Rate 20 H 03/20/21 10:57 Blood Pressure 143/82 03/20/21 10:57 Pulse Oximetry 97 03/20/21 10:57 MDM - SOB/Dyspnea MDM Narrative: Medical decision making narrative: 55-year-old female with history of COPD complaining of increased wheezing, cough and dyspnea on exertion. No acute infiltrates on chest x-ray Lab work unremarkable Covid test negative Decadron 10 mg IM x1, continue prednisone 60 mg daily x5 days, doxycycline twice daily for 7 days. Medical Records: Attestation: I reviewed the patient's medical records. Lab Data: Attestation: I reviewed the patient's lab results. Labs: Lab Results 03/20/21 03/20/21 03/20/21 13:05 13:09 13:09 WBC 11.8 10^3/uL H 10 ^3/uL (4.0-10.0) RBC 5.20 10^6/uL 10^6 /uL (4.1-5.3) Hgb 15.2 g/dL g/dL (11.5-15.3) Hct 45.8 % % (37.0-47.0) MCV 88.1 fl fl (81-99) MCH 29.2 pg pg (28.0-34.0) MCHC 33.2 g/dL g/dL (30.0-36.0) RDW 13.1 % % (12.1-15.1) Plt Count 268 10^3/cmm 10^3 /cmm (130-400) MPV 11.0 fL H fL (7.4-10.4) Neut % (Auto) 55.4 % % Lymph % (Auto) 32.3 % % [place] % (Auto) 6.0 % % Eos % (Auto) 5.2 % % Baso % (Auto) 0.8 % % Neut # (Auto) 6.52 10^3/uL 10^3 /uL (1.8-7.7) Lymph # (Auto) 3.8 10^3/uL 10^3/ uL (0.8-4.8) [place] # (Auto) 0.7 10^3/uL 10^3/ uL (0.2-0.9) Eos # (Auto) 0.6 10^3/uL 10^3/ uL (0.0-0.8) Baso # (Auto) 0.1 10^3/uL 10^3/ uL (0.0-0.1) Nucleated RBC % (a uto) 0 % % Nucleated RBCs # 0.0 /100WBC /100W BC Sodium 142 mmol/L mmol/L (136-145) Potassium 4.0 mmol/L mmol/L (3.5-5.1) Chloride 104 mmol/L mmol/L (98-107) Carbon Dioxide 22 mmol/L mmol/L (22-29) Anion Gap 20.0 H (5-19) BUN 14 mg/dL mg/dL (6-20) Creatinine 0.8 mg/dL mg/dL (0.5-0.9) GFR Calculation 74.2 mL/min L mL/ min (90-130) Glucose 92 mg/dL mg/dL (65-115) Calculated Osmolal ity 294 mOsm/kg mOsm/ kg (285-295) Calcium 9.4 mg/dL mg/dL (8.5-10.5) Total Bilirubin 0.3 mg/dL mg/dL (0.15-1.2) AST 20 U/L U/L (0-32) ALT 39 U/L H U/L (0-33) Alkaline Phosphata se 147 IU/L H IU/L (35-105) Total Protein 7.6 g/dL g/dL (6.6-8.7) Albumin 4.7 g/dL g/dL (3.5-5.2) Globulin 2.9 g/dL g/dL (1.3-4.6) Procalcitonin 0.06 ng/mL ng/mL (0-0.5) Coronavirus 229E ( PCR) Cancelled SARS-CoV-2 (PCR) Cancelled SARS-CoV-2 Ag (Rap id) 03/20/21 13:35 WBC RBC Hgb Hct MCV MCH MCHC RDW Plt Count MPV Neut % (Auto) Lymph % (Auto) [place] % (Auto) Eos % (Auto) Baso % (Auto) Neut # (Auto) Lymph # (Auto) [place] # (Auto) Eos # (Auto) Baso # (Auto) Nucleated RBC % (a uto) Nucleated RBCs # Sodium Potassium Chloride Carbon Dioxide Anion Gap BUN Creatinine GFR Calculation Glucose Calculated Osmolal ity Calcium Total Bilirubin AST ALT Alkaline Phosphata se Total Protein Albumin Globulin Procalcitonin Coronavirus 229E ( PCR) SARS-CoV-2 (PCR) SARS-CoV-2 Ag (Rap id) Negative (Negative) Discharge Plan Discharge Patient Disposition: Home Clinical Impression: Acute exacerbation of chronic obstructive airways disease Condition: Stable Prescriptions: New prednisone 20 mg tablet 60 mg PO DAILY 5 Days Qty: 15 RF: 0 Zithromax Z-Fransico 250 mg tablet See Rx Instructions .ROUTE .COMPLEX Qty: 6 RF: 0 No Action famotidine 10 mg tablet 10 mg PO DAILY@0800 PRN (Reason: STOMACH ISSUES) RF: 0 nitroglycerin 0.4 mg tablet, sublingual 0.4 mg sublingual Q5M Qty: 30 RF: 2 albuterol sulfate 90 mcg/actuation HFA aerosol inhaler 2 puff INHALATION Q6H PRN (Reason: shortness of breath or wheezing) Qty: 8.5 RF: 0 cetirizine [Zyrtec] 10 mg Tablet 10 mg PO DAILY@1999 RF: 0 citalopram [Celexa] 20 mg Tablet 20 mg PO DAILY RF: 0 lorazepam [Ativan] 0.5 mg Tablet 0.5 mg PO QID PRN (Reason: Anxiety) RF: 0 Atrovent HFA 17 mcg/actuation HFA aerosol inhaler 1 puff INHALATION QID@08,,17 RF: 0 losartan 50 mg Tablet 25 mg PO DAILY 30 Days Qty: 30 RF: 3 Tessalon Perles 100 mg capsule 100 mg PO BID PRN (Reason: cough) Qty: 14 RF: 0 Discharge Orders: Discharge ED (Routine); Ordered 03/20/21 Ordered By: Jeane Rondon Referrals: AGUSTINA SIMEON MD [Primary Care Provider] - Discharge Diet: Advance as tolerated Discharge Activity: Resume usual activity Patient Instructions: COPD Activity Restrictions/Additional Instructions: Call to schedule follow-up appoint with your primary care doctor in the next 3 days for recheck. Return immediately to the ER if you have worsening difficulty breathing, chest pain, or any other concerning changes. Coding Level of Care Code ED Hide Tanner for Lisa Ibrahim
[2021-03-20 13:17] LABS: Basophils # 0.1 10^3/uL (0.0-0.1); Basophils % 0.8 %; Eosinophils # 0.6 10^3/uL (0.0-0.8); Eosinophils % 5.2 %; Hematocrit 45.8 % (37.0-47.0); Hemoglobin 15.2 g/dL (11.5-15.3); Lymphocytes # 3.8 10^3/uL (0.8-4.8); Lymphocytes % 32.3 %; Mean Corpuscular HGB Conc 33.2 g/dL (30.0-36.0); Mean Corpuscular Hemoglobin 29.2 pg (28.0-34.0); Mean Corpuscular Volume 88.1 fl (81-99); Monocytes # 0.7 10^3/uL (0.2-0.9); Neutrophils # 6.52 10^3/uL (1.8-7.7); Neutrophils % 55.4 %; Nucleated Red Blood Cells % 0 %; Platelet Count 268 10^3/cmm (130-400); Red Cell Distribution Width 13.1 % (12.1-15.1); White Blood Count 11.8 10^3/uL (4.0-10.0)
[2021-03-20 13:38] LABS: Alanine Aminotransferase 39 U/L (0-33); Albumin Level 4.7 g/dL (3.5-5.2); Alkaline Phosphatase 147 IU/L (35-105); Aspartate Amino Transferase 20 U/L (0-32); Blood Urea Nitrogen 14 mg/dL (6-20); Calcium 9.4 mg/dL (8.5-10.5); Carbon Dioxide 22 mmol/L (22-29); Chloride 104 mmol/L (98-107); Globulin 2.9 g/dL (1.3-4.6); Glomerular Filtration Rate 74.2 mL/min (90-130); Glucose 92 mg/dL (65-115); Osmolality Calculated 294 mOsm/kg (285-295); Sodium 142 mmol/L (136-145); Total Bilirubin 0.3 mg/dL (0.15-1.2); Total Protein 7.6 g/dL (6.6-8.7)
[2021-03-20 13:45] LABS: Procalcitonin 0.06 ng/mL (0-0.5)
[2021-03-20 14:00] LABS: SARS Covid-2 Antigen Negative (Negative)
[2021-03-20] MEDS: dexamethasone 10 mg/mL INJ IM (14:03)
== END 2021-03-20 14:06 | disposition home or self-care (01) ==
PROVIDERS: Physician Assistant; Emergency Provider Family Medicine; PCP Family Medicine
DX: J44.1 Chronic obstructive pulmonary disease with (acute) exacerbation (principal); I10 Essential (primary) hypertension; I25.2 Old myocardial infarction; F17.210 Nicotine dependence, cigarettes, uncomplicated; Z20.822 Contact with and (suspected) exposure to COVID-19
CPT/HCPCS: 71045; 80053; 84145; 85025; 87426; 96372; 99283; J1100

== ENCOUNTER 2021-12-12 09:53 | Outpatient (CLI) | payer OTHER, SELFPAY ==
--- NOTE | 2021-12-12 10:13 | XRR_ITS ---
PROCEDURE INFORMATION: Exam: XR Right Humerus Exam date and time: 12/12/2021 10:30 AM Age: 56 years old Clinical indication: Pain and injury or trauma; Fall; Blunt trauma (contusions or hematomas); Arm, upper; Right; Upper arm; Injury date: Month ago; Additional info: Right arm pain TECHNIQUE: Imaging protocol: Radiologic exam of the Right humerus. Views: 2 or more views. COMPARISON: CR XR chest 1V portable [id number] 03/20/2021 11:12 AM FINDINGS: Bones/joints: No acute fracture or malalignment. Osteopenia. Soft tissues: Normal. XR/[place] [id number] IMPRESSION: No acute fracture or malalignment.
== END 2021-12-12 09:54 | disposition home or self-care (01) ==
LOC: RAD 09:55
PROVIDERS: PCP Family Medicine; Visit Provider Family Medicine
DX: M79.602 Pain in left arm (principal); M25.522 Pain in left elbow
CPT/HCPCS: 73060

== ENCOUNTER 2022-05-09 10:59 | Emergency (ER) | payer OTHER, SELFPAY ==
[2022-05-09] VITALS (9 sets, daily range): BP systolic 150–160; BP diastolic 75–91; PULSE 84–100; RESP 18–28; TEMP 36.5; O2SAT 87–93; BMI 31.2
--- NOTE | 2022-05-09 11:25 | ECG_ITS ---
[facility] Test Date: 2022-05-09 Pat Name: Ines Gallegos Department: Room: Gender: Female Mitigation Supervisor: : 1965 Requested By: Bandar Ngo Order Number: [id number] Alisha MD: Dave Abdalla M.D. Measurements Intervals [place] Rate: 87 P: 59 [place]: 148 QRS: -1 QRSD: 93 T: 53 QT: 354 QTc: 427 Interpretive Statements SINUS RHYTHM INCOMPLETE RIGHT BUNDLE BRANCH BLOCK [90+ ms QRS DURATION, TERMINAL R IN V1/V2, 40+ ms S IN I/aVL/V4/V5/V6] ANTEROSEPTAL MYOCARDIAL INFARCTION , OF INDETERMINATE AGE [40+ ms Q WAVE IN V1-V4] Compared to ECG 12/31/2020 13:04:44 Incomplete right bundle-branch block now present Myocardial infarct finding now present Left-axis deviation no longer present Electronically Signed On 05-09-2022 20:04:36 COW TENDER by Dave Abdalla M.D. [id number]
--- NOTE | 2022-05-09 12:44 | XR_ITS ---
WS: [id number] Chest 2 views, 05/09/2022 Clinical Data: shortness of breath Comparison: Portable chest, 03/20/2021 Findings: No nodules, masses or effusions are seen. The heart is normal. The pulmonary vascularity is not increased. No pneumonia or pneumothorax is seen. There is a right cardiophrenic fat pad or cyst. XR/XR chest 2V* [id number] Impression: Negative chest.
--- NOTE | 2022-05-09 12:47 | PC.NURSE ---
pt taken to triage for reassessment and repeat vital signs. pt oxygen initially 89% after walking into triage. improves to 91% with rest
--- NOTE | 2022-05-09 12:49 | PC.NURSE ---
pt taken for xray via wheelchair
--- NOTE | 2022-05-09 13:52 | PC.NURSE ---
spoke to rn lab in ER, requesting lab to draw pt's blood
--- NOTE | 2022-05-09 13:58 | PC.NURSE ---
pt with lab for blood draw
[2022-05-09 14:06] LABS: Basophils # 0.1 10^3/uL (0.0-0.1); Eosinophils # 0.4 10^3/uL (0.0-0.8); Eosinophils % 3.5 %; Hematocrit 44.7 % (37.0-47.0); Hemoglobin 14.2 g/dL (11.5-15.3); Lymphocytes % 27.7 %; Mean Corpuscular HGB Conc 31.8 g/dL (30.0-36.0); Mean Corpuscular Hemoglobin 28.5 pg (28.0-34.0); Mean Corpuscular Volume 89.6 fl (81-99); Mean Platelet Volume 10.7 fL (7.4-10.4); Monocytes # 0.7 10^3/uL (0.2-0.9); Monocytes % 6.8 %; Neutrophils # 6.56 10^3/uL (1.8-7.7); Neutrophils % 60.8 %; Nucleated Red Blood Cells % 0 %; Platelet Count 314 10^3/cmm (130-400); Red Blood Count 4.99 10^6/uL (4.1-5.3); Red Cell Distribution Width 13.2 % (12.1-15.1); White Blood Count 10.8 10^3/uL (4.0-10.0)
[2022-05-09 14:28] LABS: Alanine Aminotransferase 41 U/L (0-33); Albumin Level 4.5 g/dL (3.5-5.2); Alkaline Phosphatase 157 U/L (35-105); Aspartate Amino Transferase 26 U/L (0-32); Blood Urea Nitrogen 13 mg/dL (6-20); Calcium 9.9 mg/dL (8.5-10.5); Carbon Dioxide 24 mmol/L (22-29); Chloride 101 mmol/L (98-107); Globulin 3.4 g/dL (1.3-4.6); Glomerular Filtration Rate 56.9 mL/min (90-130); Glucose 91 mg/dL (65-115); Osmolality Calculated 286 mOsm/kg (285-295); Sodium 138 mmol/L (136-145); Total Bilirubin 0.2 mg/dL (0.15-1.2); Total Protein 7.9 g/dL (6.6-8.7)
[2022-05-09 14:32] LABS: Troponin(5th) Baseline 7 ng/L (0-10)
[2022-05-09] MEDS: ipratropium-albuterol 3 mL Neb INHALATION (16:01)
--- NOTE | 2022-05-09 16:06 | ECG_ITS ---
[facility] Test Date: 2022-05-09 Pat Name: Ines Gallegos Department: Room: Gender: Female Crystalizer Tender: : 1965 Requested By: Analisa Bourne Order Number: [id number] Alisha MD: Dave Abdalla M.D. Measurements Intervals [place] Rate: 87 P: 66 RI: 145 QRS: 48 QRSD: 101 T: 69 QT: 370 QTc: 446 Interpretive Statements SINUS RHYTHM SEPTAL MYOCARDIAL INFARCTION , OF INDETERMINATE AGE [40+ ms Q WAVE IN V1/V2] Compared to ECG 05/09/2022 11:28:55 Incomplete right bundle-branch block no longer present Myocardial infarct finding still present Electronically Signed On 05-09-2022 20:16:08 VB NET DEVELOPER by Dave Abdalla M.D. [id number]
[2022-05-09 16:08] LABS: ABG PCO2 35.9 mmHg (35-45); ABG PH Result 7.43 (7.35-7.45); Alveolar-Arterial Oxygen Gradi 6.6 mmHg (5-10); Arterial Blood Gas Hematocrit 43.1 % (37-47); Base Excess ABG 0.2 mmol/L (-2.0-2.0); Blood Gas Allen Test Pos; Blood Gas Sample Type Arterial; Carboxyhemoglobin 2.3 %THgb (0.4-20.1); HGB O2 Sat 88.8 % (95-100); Ionized Calcium Level - ABG 1.3 mmol/L (1.1-1.4); Methemoglobin 0.3 % (0.4-1.5); Oxygen Saturation ABG 91.1; PO2 ABG 54.8 mmHg (80.0-100.0)
[2022-05-09 16:09] LABS: Blood Gas Operator Identificat MONRO; Blood Gas Sample Site Radial, right; Oxygen Device ROOM AIR
--- NOTE | 2022-05-09 16:18 | ED_ITS ---
HPI - SOB/Dyspnea General: Chief Complaint: Shortness of Breath/Dyspnea Stated Complaint: SOB Time Seen by Provider: 05/09/22 15:08 Source: patient History of Present Illness: HPI Narrative: 57-year-old female presents emergency room with complaints of difficulty breathing and shortness of breath been going on for the last week. She been using albuterol regularly continues to have difficulty. She denies any fevers sweats chills baseline productive cough. Initially when she presented her O2 sat was 93% on room air on recheck she was 88% on room air and required 2 L. No chest pain no vomiting no diarrhea. Patient reports having recently stopped smoking MD elicited complaint: shortness of breath and cough Pertinent past history: COPD Onset (ago): week(s) (1) Severity: moderate Exacerbating factors: exertion, coughing and talking Relieving factors: oxygen, rest and bronchodilators Known history of: COPD Associated symptoms: Reports chest congestion and cough; Deny abdominal pain, chest pain, diaphoresis, dizziness, extremity pain, fever(s), hemoptysis, lightheadedness, myalgias, nausea, orthopnea, palpitations, paresthesias, polydipsia, polyuria, rash, sense of impending doom, syncope or vomiting Treatment prior to arrival: none Review of Systems Const: Denies: fever(s), chills, fatigue, malaise or diaphoresis ENMT: Denies: throat pain, ear or mastoid pain, nasal discharge or nasal congestion Card: Denies: chest pain, palpitations, lightheadedness, syncope or orthopnea Resp: Reports: dyspnea, non-productive cough, wheezing and chest congestion; Denies: hemoptysis GI: Denies: abdominal pain, nausea or vomiting : Denies: flank pain, difficulty voiding, dysuria, urinary frequency or urinary urgency Musc: Denies: extremity pain Skin/Breast: Denies: rash or pruritus Neuro: Denies: dizziness Endo: Denies: polyuria or polydipsia PFSH ED PFSH: Medical History Chest heaviness Cigarette smoker motivated to quit COPD (chronic obstructive pulmonary disease) Depression Elevated troponin Essential hypertension with goal blood pressure less than 130/80 Generalized anxiety disorder Nicotine dependence, unspecified, uncomplicated NSTEMI (non-ST elevated myocardial infarction) Social History Smoking and tobacco status: current every day smoker (0.5 ppd, 45 years, starte at age 11) cigarettes Packs smoked per day: 0.5 Years cigarettes smoked: 40 [ Other cigarette details: Hx of 1 PPD x 40 Years - Trying to quit] Quit status (tobacco): has tried quititng Number of times tried to quit tobacco: 5 Second hand smoke exposure: Yes Alcohol intake: never Lives independently: Yes Household members: spouse Marital status: Current occupational status: unemployed History of recent travel: No Current gender identity: Female Physical Exam Const: GENERAL APPEARANCE: cooperative and comfortable ORIENTATION/CONSCIOUSNESS: Yes awake, Yes oriented to person, Yes oriented to place and Yes oriented to time HENMT: COMMON NORMALS: normocephalic, atraumatic and hearing grossly normal bilaterally HEAD & SCALP: normocephalic and atraumatic Resp: COMMON NORMALS: normal respiratory effort, No retractions, No use of accessory muscles and clear to auscultation bilaterally AUSCULTATION: clear to auscultation bilaterally Cardio: COMMON NORMALS: regular rate, regular rhythm and No murmurs present (Cardio) RATE: regular rate RHYTHM: regular rhythm GI: COMMON NORMALS: Soft to palpation and No hepatosplenomegaly present AUSCULTATION: Yes normoactive bowel sounds PALPATION: Yes Soft to palpation, No Tenderness to palpation present (GI), No Guarding due to palpation present (GI) and Yes No hepatosplenomegaly present Extremity: COMMON NORMALS: normal to inspection, capillary refill normal, no clubbing, cyanosis or edema, no calf tenderness and no pedal edema Neuro: SENSORIUM/ORIENTATION: Yes oriented to person, Yes oriented to place and Yes oriented to time Skin: COMMON NORMALS: no rashes or lesions noted GENERAL SKIN EXAM: no rashes or lesions noted Course Vital Signs: Vital signs: Vital Signs Temperature 97.7 F 05/09/22 12:47 Pulse Rate 94 05/09/22 18:30 Respiratory Rate 21 H 05/09/22 16:30 Blood Pressure 154/91 05/09/22 16:00 Pulse Oximetry 90 05/09/22 18:30 Oxygen Delivery Me thod 05/09/22 16:13 Oxygen Flow Rate 2 05/09/22 16:43 MDM - SOB/Dyspnea Medical Decision Making Clinically appears to COPD. Started on Spiriva 1 puff twice daily and DuoNebs. Discharge home follow-up with primary care within the week to reevaluate. Medical Records I reviewed the patient's medical records. Lab Data I reviewed the patient's lab results. 05/09/22 13:49 05/09/22 13:49 Labs/Radiology: Radiology Impressions Chest X-Ray 05/09/22 12:44 Impression: Negative chest. Laboratory Results WBC 10.8 10^3/uL (4.0-10.0) H 05/09/22 13:49 RBC 4.99 10^6/uL (4.1-5.3) 05/09/22 13:49 Hgb 14.2 g/dL (11.5-15.3) 05/09/22 13:49 Hct 44.7 % (37.0-47.0) 05/09/22 13:49 MCV 89.6 fl (81-99) 05/09/22 13:49 MCH 28.5 pg (28.0-34.0) 05/09/22 13:49 MCHC 31.8 g/dL (30.0-36.0) 05/09/22 13:49 RDW 13.2 % (12.1-15.1) 05/09/22 13:49 Plt Count 314 10^3/cmm (130-400) 05/09/22 13:49 MPV 10.7 fL (7.4-10.4) H 05/09/22 13:49 Neut % (Auto) 60.8 % 05/09/22 13:49 Lymph % (Auto) 27.7 % 05/09/22 13:49 [place] % (Auto) 6.8 % 05/09/22 13:49 Eos % (Auto) 3.5 % 05/09/22 13:49 Baso % (Auto) 1.0 % 05/09/22 13:49 Neut # (Auto) 6.56 10^3/uL (1.8-7.7) 05/09/22 13:49 Lymph # (Auto) 3.0 10^3/uL (0.8-4.8) 05/09/22 13:49 [place] # (Auto) 0.7 10^3/uL (0.2-0.9) 05/09/22 13:49 Eos # (Auto) 0.4 10^3/uL (0.0-0.8) 05/09/22 13:49 Baso # (Auto) 0.1 10^3/uL (0.0-0.1) 05/09/22 13:49 Nucleated RBC % (auto) 0 % 05/09/22 13:49 Nucleated RBCs # 0.0 /100WBC 05/09/22 13:49 Specimen Type Arterial 05/09/22 15:56 Sample Site Radial, right 05/09/22 15:56 ABG pH 7.43 (7.35-7.45) 05/09/22 15:56 ABG pCO2 35.9 mmHg (35-45) 05/09/22 15:56 ABG pO2 54.8 mmHg (80.0-100.0) L 05/09/22 15:56 ABG HCO3 24.0 mmol/L (22-26) 05/09/22 15:56 ABG O2 Saturation 91.1 05/09/22 15:56 ABG Base Excess 0.2 mmol/L (-2.0-2.0) 05/09/22 15:56 Hank Test Pos 05/09/22 15:56 A-a O2 Gradient 6.6 mmHg (5-10) 05/09/22 15:56 Hematocrit 43.1 % (37-47) 05/09/22 15:56 Hgb O2 Saturation 88.8 % (95-100) L 05/09/22 15:56 Carboxyhemoglobin 2.3 %THgb (0.4-20.1) 05/09/22 15:56 Methemoglobin 0.3 % (0.4-1.5) L 05/09/22 15:56 Total Hemoglobin 14.0 g/dL (12-16) 05/09/22 15:56 Sodium 142.0 mmol/L (131-143) 05/09/22 15:56 Potassium 4.0 mmol/L (3.5-5.0) 05/09/22 15:56 Glucose 91.0 mg/dL (70-115) 05/09/22 15:56 Ionized Calcium 1.3 mmol/L (1.1-1.4) 05/09/22 15:56 O2 Delivery Device Room air 05/09/22 15:56 FiO2 21.0 % 05/09/22 15:56 Paint Formulator ID Jenniero 05/09/22 15:56 Sodium 138 mmol/L (136-145) 05/09/22 13:49 Potassium 4.0 mmol/L (3.5-5.1) 05/09/22 13:49 Chloride 101 mmol/L (98-107) 05/09/22 13:49 Carbon Dioxide 24 mmol/L (22-29) 05/09/22 13:49 Anion Gap 17.0 (5-19) 05/09/22 13:49 BUN 13 mg/dL (6-20) 05/09/22 13:49 Creatinine 1.0 mg/dL (0.5-0.9) H 05/09/22 13:49 GFR Calculation 56.9 mL/min (90-130) L 05/09/22 13:49 Glucose 91 mg/dL (65-115) 05/09/22 13:49 Calculated Osmolality 286 mOsm/kg (285-295) 05/09/22 13:49 Calcium 9.9 mg/dL (8.5-10.5) 05/09/22 13:49 Total Bilirubin 0.2 mg/dL (0.15-1.2) 05/09/22 13:49 AST 26 U/L (0-32) 05/09/22 13:49 ALT 41 U/L (0-33) H 05/09/22 13:49 Alkaline Phosphatase 157 U/L (35-105) H 05/09/22 13:49 Troponin T Baseline 7 ng/L (0-10) 05/09/22 13:49 Troponin T 120 Minute 7.59 ng/L (0-10) 05/09/22 15:52 Delta Troponin T 0.59 ABS# (0-10) 05/09/22 15:52 Total Protein 7.9 g/dL (6.6-8.7) 05/09/22 13:49 Albumin 4.5 g/dL (3.5-5.2) 05/09/22 13:49 Globulin 3.4 g/dL (1.3-4.6) 05/09/22 13:49 Discharge Plan Discharge Patient Disposition: Home Clinical Impression: COPD (chronic obstructive pulmonary disease) Condition: Stable Prescriptions: New Spiriva Respimat 1.25 mcg/actuation mist 2 inh inhalation DAILY Qty: 4 0RF ipratropium-albuterol 0.5 mg-3 mg(2.5 mg base)/3 mL solution for nebulization 3 ml inhalation Q6H PRN (Reason: shortness of breath or wheezing) Qty: 180 0RF No Action nitroglycerin 0.4 mg tablet, sublingual 0.4 mg sublingual Q5M Qty: 30 2RF Rx Instructions: do not exceed 3 doses per episode amlodipine 10 mg tablet 10 mg PO DAILY albuterol sulfate 90 mcg/actuation HFA aerosol inhaler 2 puff INHALATION Q6H PRN (Reason: shortness of breath or wheezing) Qty: 8.5 0RF cetirizine [Zyrtec] 10 mg Tablet 10 mg PO DAILY@1999 lorazepam [Ativan] 0.5 mg Tablet 0.5 mg PO QID PRN (Reason: Anxiety) Atrovent HFA 17 mcg/actuation HFA aerosol inhaler 1 puff INHALATION QID@08,13,17 losartan 50 mg Tablet 25 mg PO DAILY 30 Days Qty: 30 3RF omeprazole 40 mg capsule,delayed release(DR/EC) 40 mg PO DAILY bupropion HCl 300 mg tablet extended release 24 hr 300 mg PO QPM budesonide-formoterol 160-4.5 mcg/actuation HFA aerosol inhaler 2 puff INHALATION DAILY Discharge Orders: Discharge ED (Routine); Ordered 05/09/22 Ordered By: Bandar Mon Other Ambulatory Orders: DME: Oxygen (Order) Location: None Selected Ordered By: Bandar Mon Referrals: AGUSTINA SIMEON MD [Primary Care Provider] - Discharge Diet: Usual diet Discharge Activity: Increase activity as tolerated Patient Instructions: Opioid Safety, Pain Management Activity Restrictions/Additional Instructions: You were seen today for your COPD. Recommend that you start Spiriva 2 puffs daily continue to use albuterol ipratropium bromide and your nebulizer as needed. I will also put you on oxygen 2 L/min and working to set you up to see the molding machine operator (lung doctor). Coding Level of Care Code ED Sales Utility Representative for Lisa Ibrahim
[2022-05-09 16:29] LABS: Troponin 5 2HR 7.59 ng/L (0-10)
[2022-05-09 17:01] LABS: Troponin 5 2HR Delta 0.59 ABS# (0-10)
== END 2022-05-09 19:01 | disposition home or self-care (01) ==
PROVIDERS: Nurse Practitioner Family; Emergency Provider Family Medicine; PCP Family Medicine
DX: J44.9 Chronic obstructive pulmonary disease, unspecified (principal); I10 Essential (primary) hypertension; I25.2 Old myocardial infarction; F17.210 Nicotine dependence, cigarettes, uncomplicated
CPT/HCPCS: 36415; 36600; 71046; 80051; 80053; 82330; 82805; 84484; 85025; 93005; 94640; 96374; 99285; J2930

== ENCOUNTER 2022-08-14 12:56 | Emergency (ER) | payer OTHER, SELFPAY ==
[2022-08-14 13:27] VITALS: BP 125/77; PULSE 91; RESP 14; TEMP 36.7; O2SAT 96; BMI 32.9
--- NOTE | 2022-08-14 13:57 | ED_ITS ---
HPI - Extremity Problem General: Chief complaint: Extremity Injury, Lower Stated complaint: Left ankel injury Time Seen by Provider: 08/14/22 13:35 Source: patient and family Limitations: no limitations History of Present Illness: This patient comes to our emergency department because of the left ankle injury. She states she was walking along the edge of a concrete slab which had approximately an 8 inch drop off to the ground and missed stepped and wound up rolling over on her left ankle and falling to the ground. She states she had immediate pain in her left ankle and was unable to get up and bear weight without assistance. She did not suffer any other injury during the fall. She did not hit her head, suffer a loss of conscious etc. There was no prodrome or syncope associated prior to fall. MD Complaint: extremity pain Pain Consistency: constant Location: left and lower extremity (ankle) Exacerbating factors: range of motion, weight bearing, walking and palpation Associated symptoms: Reports no associated symptoms; Deny chest pain, fever(s) or rash Review of Systems Const: Denies: fever(s) or chills Eyes: Denies: change in vision or blurry vision Card: Denies: chest pain, palpitations or syncope Resp: Denies: productive cough or non-productive cough GI: Denies: nausea or vomiting Musc: Reports: extremity pain and extremity swelling; Denies: neck pain or back pain Skin/Breast: Denies: rash or new lesions Neuro: Denies: headache(s), numbness in extremities, weakness in extremities or seizure-like activity Reji/Lymph: Denies: easy bruising or easy bleeding [facility] ED PFSH: Medical History Chest heaviness Cigarette smoker motivated to quit COPD (chronic obstructive pulmonary disease) Depression Elevated troponin Essential hypertension with goal blood pressure less than 130/80 Generalized anxiety disorder Nicotine dependence, unspecified, uncomplicated NSTEMI (non-ST elevated myocardial infarction) Social History Smoking and tobacco status: current every day smoker (0.5 ppd, 45 years, starte at age 11) cigarettes Packs smoked per day: 0.5 Years cigarettes smoked: 40 [ Other cigarette details: Hx of 1 PPD x 40 Years - Trying to quit] Quit status (tobacco): has tried quititng Number of times tried to quit tobacc o: 5 Second hand smoke exposure: Yes Alcohol intake: never Substance/Drug Use: never Lives independently: Yes Household members: spouse Marital status: Current occupational status: unemployed Do you think of yourself as: Straight/Heterosexual Current gender identity: Female Physical Exam Narrative: EXAM NARRATIVE: Patient is alert, makes good eye contact., Speech is goal-directed. Const: COMMON NORMALS: average body habitus, patient oriented x3, no limitations and alert GENERAL APPEARANCE: cooperative ORIENTATION/CONSCIOUSNESS: Yes awake HENMT: COMMON NORMALS: normocephalic, atraumatic, Normal nasal mucous membranes and turbinates present and moist oral mucous membranes HEAD & SCALP: normocephalic and atraumatic NOSE: Normal nasal mucous membranes and turbinates present Eye: COMMON NORMALS: Equal, round and reactive pupils present and EOMs intact bilaterally PUPIL: Yes Equal, round and reactive pupils present Neck/C-Spine: COMMON NORMALS: full ROM CERVICAL SPINE: Yes cervical ROM normal Chest: COMMONS NORMALS: normal inspection of the chest Resp: COMMON NORMALS: normal respiratory effort EFFORT & INSPECTION: Yes a ble to speak in complete sentences Cardio: COMMON NORMALS: regular rate and Peripheral pulses 2+ throughout RATE: regular rate PERIPHERAL PULSES: Peripheral pulses 2+ throughout : COMMON NORMALS: Yes no CVA tenderness BLADDER/KIDNEY EXAM: Yes no CVA tenderness Back/Pelvis: COMMON NORMALS: no CVA tenderness, thoracic and lumbar spine normal to inspection, no thoracic nor lumbar tenderness and thoraco-lumbar ROM normal Extremity: LEFT LOWER EXTREMITY: Yes ankle joint OTHER: Examination left lower extremity reveals obvious swelling of soft tissue over the lateral malleolus with localized tenderness. She is neurovascularly intact distally. There is no midfoot tenderness. There is no tenderness over the fifth metatarsal. There is no tenderness proximally over the fibular head. Knee joint and hip joint are normal range of motion. No long bone tenderness. EXTREMITY IMAGE (FRONT): 1. Area of tenderness and swelling Neuro: COMMON NORMALS: patient oriented x3, moves all extremities and no focal motor deficits SENSORIUM/ORIENTATION: Yes alert Course Vital Signs: Vital signs: Vital Signs Temperature 98.1 F 08/14/22 13:27 Pulse Rate 91 08/14/22 13:27 Respiratory Rate 14 08/14/22 13:27 Blood Pressure 125/77 08/14/22 13:27 Pulse Oximetry 96 08/14/22 13:27 Oxygen Delivery Me thod Room Air 08/14/22 13:27 MDM - Extremity (Nontraumatic) Medical Decision Making Patient presented to the emerged department with an inversion injury to her left ankle. There was no evidence either historically or clinically to suggest other injury such as head injury axial spine injury etc. Medical examination suggested lateral malleolus strain sprain. X-ray did not reveal any evidence of obvious fracture. She is being placed in a Aircast/ankle stirrup with crutches for limited and progressive increase in weightbearing over the next 5 to 7 days with return precautions. No evidence of more proximal leg injury at this time. Medical Records I reviewed the patient's medical records. Lab Data I reviewed the patient's lab results. I reviewed ankle films contemporaneously no evidence of acute fracture. Discharge Plan Discharge Patient Disposition: Home Clinical Impression: Left ankle sprain Condition: Stable Prescriptions: No Action nitroglycerin 0.4 mg tablet, sublingual 0.4 mg sublingual Q5M Qty: 30 2RF Rx Instructions: do not exceed 3 doses per episode amlodipine 10 mg tablet 10 mg PO DAILY albuterol sulfate 90 mcg/actuation HFA aerosol inhaler 2 puff INHALATION Q6H PRN (Reason: shortness of breath or wheezing) Qty: 8.5 0RF cetirizine [Zyrtec] 10 mg Tablet 10 mg PO DAILY@1999 lorazepam [Ativan] 0.5 mg Tablet 0.5 mg PO QID PRN (Reason: Anxiety) Atrovent HFA 17 mcg/actuation HFA aerosol inhaler 1 puff INHALATION QID@,, losartan 50 mg Tablet 25 mg PO DAILY 30 Days Qty: 30 3RF omeprazole 40 mg capsule,delayed release(DR/EC) 40 mg PO DAILY bupropion HCl 300 mg tablet extended release 24 hr 300 mg PO QPM budesonide-formoterol 160-4.5 mcg/actuation HFA aerosol inhaler 2 puff INHALATION DAILY Spiriva Respimat 1.25 mcg/actuation mist 2 inh inhalation DAILY Qty: 4 0RF ipratropium-albuterol 0.5 mg-3 mg(2.5 mg base)/3 mL solution for nebulization 3 ml inhalation Q6H PRN (Reason: shortness of breath or wheezing) Qty: 180 0RF Discharge Orders: Discharge ED (Routine); Ordered 08/14/22 Ordered By: Evert Lara Discharge Diet: Usual diet Discharge Activity: Increase activity as tolerated and Use walker/crutches as instructed Patient Instructions: Ankle Sprain (ED), Opioid Safety, Pain Management Activity Restrictions/Additional Instructions: As we discussed your x-rays did not reveal an obvious broken bone at this time. As we also discussed you have a sprained ankle which means you have injury to the soft tissues of your ankle to include ligaments, other connective tissues of that joint. We recommend using the ankle stirrup provided and crutches to limit weightbearing for the first 2-3 days and then gradually increase weightbearing as tolerated. If after 5-7 days you are still unable to bear weight or have increasing or worsening symptoms or other concerns return to the emergency department for reevaluation. In the meantime you may use Tylenol in the usual doses to help control pain as well as when you are not ambulating on the leg you should keep it elevated with an ice pack every 10 to 15 minutes 3-4 times daily. Coding Level of Care Code ED Business Management Specialist for Lisa Ibrahim
--- NOTE | 2022-08-14 13:57 | XRR_ITS ---
PROCEDURE INFORMATION: Exam: XR Left Ankle Exam date and time: 08/14/2022 2:10 PM Age: 57 years old Clinical indication: Injury or trauma; Other: Inversion; Sprain or strain; Ankle; Left TECHNIQUE: Imaging protocol: Radiologic exam of the left ankle. Views: 3 or more views. COMPARISON: No relevant prior studies available. FINDINGS: Bones/joints: No fracture identified. Ankle joint appears maintained. No significant osseous abnormality. Soft tissues: Soft tissue swelling is seen laterally. No abnormal soft tissue calcification is seen. XR/XR ankle LT min 3V* [id number] IMPRESSION: 1. No fracture identified. 2. Soft tissue swelling, particularly laterally.
--- NOTE | 2022-08-22 15:08 | DCPLANNER ---
TCM called patient due to no primary care physician - no answer at this time.
== END 2022-08-14 15:36 | disposition home or self-care (01) ==
PROVIDERS: Emergency Provider Emergency Medicine
DX: S93.402A Sprain of unspecified ligament of left ankle, initial encounter (principal); J44.9 Chronic obstructive pulmonary disease, unspecified; I10 Essential (primary) hypertension; I25.2 Old myocardial infarction; F17.210 Nicotine dependence, cigarettes, uncomplicated; X50.1XXA Overexertion from prolonged static or awkward postures, initial encounter
CPT/HCPCS: 29515; 73610; 99283; E0114

== ENCOUNTER 2022-08-30 13:41 | Outpatient (CLI) | payer OTHER, SELFPAY ==
--- NOTE | 2022-08-30 14:58 | XR_ITS ---
WS: [id number] XR foot LT min 3V* [id number] REASON FOR EXAM: LEFT FOOT INJURY FINDINGS: No fracture or other focal bone abnormality in the left forefoot. Mild narrowing with subchondral scl erosis in the PIP and DIP joints of the toes. Lisfranc and intertarsal joint spaces are intact and relatively well-preserved. Mild narrowing of the Chopart joint with mild subchondral sclerosis. No focal bone abnormality in the left midfoot. Left subtalar joint is intact and relatively well-preserved. No significant bone abnormality in the l eft hindfoot. XR/XR foot LT min 3V* [id number] IMPRESSION: Mild changes of osteoarthropathy with no acute abnormality.
--- NOTE | 2022-08-30 14:58 | XR_ITS ---
WS: [id number] XR ankle LT min 3V* [id number] REASON FOR EXAM: LEFT FOOT INJURY FINDINGS: Mild periarticular soft tissue swelling. No radiopaque foreign body. No fracture or other focal bone abnormality. Joint spaces of the left ankle are intact and relatively well-preserved. XR/XR ankle LT min 3V* [id number] IMPRESSION: Soft tissue swelling with no bone or joint abnormality.
== END 2022-08-30 13:42 | disposition home or self-care (01) ==
LOC: RAD 13:48
PROVIDERS: Visit Provider Family Medicine
DX: S99.922A Unspecified injury of left foot, initial encounter (principal); X58.XXXA Exposure to other specified factors, initial encounter; M19.072 Primary osteoarthritis, left ankle and foot
CPT/HCPCS: 73610; 73630

== ENCOUNTER 2023-02-19 20:25 | Emergency (ER) | payer OTHER, SELFPAY ==
[2023-02-19 20:38] VITALS: BP 184/91; PULSE 87; RESP 17; TEMP 36.6; O2SAT 98; BMI 31.1
--- NOTE | 2023-02-19 22:47 | W.ED.NECK ---
HPI - Neck Pain/Injury General: Chief Complaint: Neck Pain/Injury Stated Complaint: neck pain Time Seen by Provider: 02/19/23 22:35 History of Present Illness: 57-year-old female comes in today for complaints of neck pain and discomfort that started about 3 days ago. Patient reports is worsened over the last 3 days. Patient was given a shot of Toradol and steroids yesterday at the doctor's office with some relief of discomfort. Patient reports increased pain and discomfort tonight. Patient appears nontoxic. Patient has a history of CAD, COPD, hypertension, and depression. Review of Systems General: Reports: 10 or more systems reviewed and unremarkable except in HPI and below Const: Denies: fever(s) Card: Denies: chest pain Resp: Denies: dyspnea Musc: Reports: neck pain PFSH ED PFSH: Medical History Chest heaviness Cigarette smoker motivated to quit COPD (chronic obstructive pulmonary disease) Depression Elevated troponin Essential hypertension with goal blood pressure less than 130/80 Generalized anxiety disorder Nicotine dependence, unspecified, uncomplicated NSTEMI (non-ST elevated myocardial infarction) Social History Smoking and tobacco/nicotine status: current every day tobacco/nicotine user (0.5 ppd, 44 years, starte at age 11) cigarettes Packs smoked per day: 0.5 Years cigarettes smoked: 40 [ Other cigarette details: Hx of 1 PPD x 40 Years - Trying to quit] Quit status (tobacco/nicotine): has tried quititng Number of times tried to quit tobacco: 5 Second hand smoke exposure: Yes Alcohol intake: never Substance/Drug Use: never Lives independently: Yes Household members: spouse Marital status: Current occupational status: unemployed Do you think of yourself as: Straight/Heterosexual Current gender identity: Female Physical Exam Const: COMMON NORMALS: alert HENMT: COMMON NORMALS: normocephalic HEAD & SCALP: normocephalic MOUTH: Normal oral and palatal mucosa present Neck/C-Spine: CERVICAL SPINE: No Cervical spine tenderness, Yes Paracervical muscle tenderness and Yes Paracervical spasm Resp: COMMON NORMALS: normal respiratory effort and clear to auscultation bilaterally AUSCULTATION: clear to auscultation bilaterally Cardio: COMMON NORMALS: regular rate and regular rhythm RATE: regular rate RHYTHM: regular rhythm GI: COMMON NORMALS: non-tender Back/Pelvis: COMMON NORMALS: thoracic and lumbar spine normal to inspection Extremity: COMMON NORMALS: full ROM Neuro: SENSORIUM/ORIENTATION: Yes alert Skin: COMMON NORMALS: turgor normal GENERAL SKIN EXAM: turgor normal Course Vital Signs: Vital signs: Vital Signs Temperature 97.9 F 02/19/23 20:38 Pulse Rate 87 02/19/23 20:38 Respiratory Rate 17 02/19/23 20:38 Blood Pressure 184/91 02/19/23 20:38 Pulse Oximetry 98 02/19/23 20:38 Oxygen Delivery Me thod Room Air 02/19/23 20:38 MDM - Neck Pain/Injury Medical Decision Making 57-year-old female comes in today with neck pain and decreased range of motion of the neck. On exam patient has muscle tightness and tenderness to the paraspinous cervical muscles. No point tenderness along cervical spine. Respirations are even lungs are clear to auscultation. Skin is warm and dry. Differential diagnosis includes intervertebral disc disease, facet arthropathy, cervical muscle spasm/strain, cervical radiculopathy. Patient be treated with 30 mg Toradol, 10 mg dexamethasone, and orphenadrine. Patient will be maintained on celecoxib and cyclobenzaprine. Encourage plenty of fluids and follow-up with primary care for further instructions. Patient reported understanding and agreed to plan. No radiology studies performed this visit Discharge Plan Discharge Patient Disposition: Home Clinical Impression: Neck pain, acute Condition: Stable Prescriptions: New cyclobenzaprine 5 mg tablet 5 mg PO Q8H PRN (Reason: muscle spasm) Qty: 30 0RF celecoxib 200 mg capsule 200 mg PO BID Qty: 20 0RF No Action nitroglycerin 0.4 mg tablet, sublingual 0.4 mg sublingual Q5M Qty: 30 2RF Rx Instructions: do not exceed 3 doses per episode amlodipine 10 mg tablet 10 mg PO DAILY albuterol sulfate 90 mcg/actuation HFA aerosol inhaler 2 puff INHALATION Q6H PRN (Reason: shortness of breath or wheezing) Qty: 8.5 0RF cetirizine [Zyrtec] 10 mg Tablet 10 mg PO DAILY@1999 lorazepam [Ativan] 0.5 mg Tablet 0.5 mg PO QID PRN (Reason: Anxiety) Atrovent HFA 17 mcg/actuation HFA aerosol inhaler 1 puff INHALATION QID@08,13,17 losartan 50 mg Tablet 25 mg PO DAILY 30 Days Qty: 30 3RF omeprazole 40 mg capsule,delayed release(DR/EC) 40 mg PO DAILY bupropion HCl 300 mg tablet extended release 24 hr 300 mg PO QPM budesonide-formoterol 160-4.5 mcg/actuation HFA aerosol inhaler 2 puff INHALATION DAILY Spiriva Respimat 1.25 mcg/actuation mist 2 inh inhalation DAILY Qty: 4 0RF ipratropium-albuterol 0.5 mg-3 mg(2.5 mg base)/3 mL solution for nebulization 3 ml inhalation Q6H PRN (Reason: shortness of breath or wheezing) Qty: 180 0RF Discharge Orders: Discharge ED (Routine); Ordered 02/19/23 Ordered By: Akira David Referrals: Ross Davis MD [Primary Care Provider] - Discharge Diet: Usual diet Discharge Activity: Increase activity as tolerated Patient Instructions: Cervical Strain (ED) Activity Restrictions/Additional Instructions: Home and rest. Gentle stretching and range of motion exercises of the neck. Avoid strenuous activity or over the head activity until pain resolves. Use ice or heat to the area to help with pain. Take celecoxib 1 tablet/capsule 2 times a day for pain and inflammation. Drink plenty of water with medications. Use cyclobenzaprine 5 mg 1 tablet 3 times a day as needed for muscle spasms. Follow-up with primary care for further instructions. Return to emergency department for worsening symptoms such as high fever, shortness of breath or severe chest pain. Coding Level of Care Code ED Solid Waste Technician for Lisa Ibrahim
[2023-02-19] MEDS: dexamethasone 10 mg/mL INJ IM (23:38)
[2023-02-19] MEDS: ketorolac 30 mg/mL INJ IM (23:38)
[2023-02-19] MEDS: orphenadrine 30 mg/mL Inj 2 mL 60 MG IM (23:39)
[2023-02-20 00:12] VITALS: BP 189/111; PULSE 90; RESP 18
== END 2023-02-20 00:14 | disposition home or self-care (01) ==
PROVIDERS: Emergency Provider Nurse Practitioner Family; PCP Family Medicine
DX: M54.2 Cervicalgia (principal); J44.9 Chronic obstructive pulmonary disease, unspecified; I10 Essential (primary) hypertension; I25.2 Old myocardial infarction; F17.210 Nicotine dependence, cigarettes, uncomplicated
CPT/HCPCS: 96372; 99284; J1100; J1885; J2360

== ENCOUNTER 2023-03-23 12:03 | Emergency (ER) | payer OTHER, SELFPAY ==
[2023-03-23 12:21] VITALS: BP 116/75; PULSE 100; RESP 16; TEMP 37.2; O2SAT 96
== END 2023-03-23 13:12 | disposition left against medical advice (07) ==
LOC: ER 12:10
PROVIDERS: Emergency Provider Family Medicine; PCP Family Medicine
DX: Z53.21 Procedure and treatment not carried out due to patient leaving prior to being seen by health care provider (principal)
CPT/HCPCS: 87426

== ENCOUNTER 2023-07-31 18:20 | Emergency (ER) | payer OTHER, SELFPAY ==
[2023-07-31 18:35] VITALS: BP 186/86; PULSE 84; RESP 18; TEMP 36.8; O2SAT 96; BMI 31.1
[2023-07-31 19:37] LABS: Basophils # 0.1 10^3/uL (0.0-0.1); Eosinophils # 0.6 10^3/uL (0.0-0.8); Eosinophils % 6.2 %; Hematocrit 44.4 % (36-47); Lymphocytes # 2.7 10^3/uL (0.8-4.8); Lymphocytes % 28.2 %; Mean Corpuscular HGB Conc 32.7 g/dL (30-55); Mean Corpuscular Hemoglobin 28.8 pg (27-33); Mean Corpuscular Volume 88.1 fl (85-98); Monocytes # 0.9 10^3/uL (0.2-0.9); Neutrophils # 5.34 10^3/uL (1.8-7.7); Neutrophils % 55.3 %; Nucleated Red Blood Cells % 0 %; Platelet Count 230 10^3/cmm (157-399); Red Blood Count 5.04 10^6/uL (3.85-5.65); Red Cell Distribution Width 12.9 % (12.1-15.1); White Blood Count 9.67 10^3/uL (3.29-11.43)
[2023-07-31 19:56] LABS: Troponin(5th) Baseline 10 ng/L (0-10)
[2023-07-31 19:57] LABS: Alanine Aminotransferase 32 U/L (0-33); Albumin Level 4.5 g/dL (3.5-5.2); Alkaline Phosphatase 177 U/L (35-105); Anion Gap 14.7 (5-19); Aspartate Amino Transferase 24 U/L (0-32); Blood Urea Nitrogen 17 mg/dL (6-20); Calcium 9.1 mg/dL (8.5-10.5); Carbon Dioxide 26 mmol/L (22-29); Chloride 105 mmol/L (98-107); Creatinine Clr Calc Pharmacy 58.2398; Globulin 2.8 g/dL (1.3-4.6); Glomerular Filtration Rate 56.7 mL/min (90-130); Glucose 98 mg/dL (65-115); Osmolality Calculated 296 mOsm/kg (285-295); Potassium 3.7 mmol/L (3.5-5.1); Sodium 142 mmol/L (136-145); Total Bilirubin 0.3 mg/dL (0.15-1.2); Total Protein 7.3 g/dL (6.6-8.7)
== END 2023-07-31 20:08 | disposition left against medical advice (07) ==
LOC: ER 18:28
PROVIDERS: Emergency Medicine; Emergency Provider Family Medicine; PCP Family Medicine
DX: Z53.21 Procedure and treatment not carried out due to patient leaving prior to being seen by health care provider (principal)
CPT/HCPCS: 36415; 80053; 84484; 85025; 99284

== ENCOUNTER 2023-12-29 02:32 | Emergency (ER) | payer OTHER, SELFPAY ==
[2023-12-29 02:44] VITALS: BP 154/82; PULSE 78; RESP 16; TEMP 36.6; O2SAT 98; BMI 29.2
--- NOTE | 2023-12-29 03:15 | XRR_ITS ---
PROCEDURE INFORMATION: Exam: XR Chest Exam date and time: 12/29/2023 3:18 AM Age: 58 years old Clinical indication: Shortness of breath; Patient HX: C/O SOB TECHNIQUE: Imaging protocol: Radiologic exam of the chest. Views: 1 view. COMPARISON: CR XR chest 2V* [id number] 05/09/2022 12:51 PM FINDINGS: Lungs: Unremarkable. No consolidation. Pleural spaces: Unremarkable. No pleural effusion. No pneumothorax. Heart/Mediastinum: Unremarkable. No cardiomegaly. Bones/joints: Unremarkable. XR/XR chest 1V portable [id number] IMPRESSION: No acute findings.
--- NOTE | 2023-12-29 04:39 | W.ED.SKABFB ---
HPI - Skin/Abscess/Foreign Bdy General: Chief complaint: Skin/Abscess/Foreign Body Stated complaint: Breaking out on arm and stomach Time Seen by Provider: 12/29/23 03:05 History of Present Illness: 58-year-old female presenting with widespread rash and itch developing over the last several hours. Rashes present over her trunk, upper extremities more than lower extremities. Face appears to be mostly spared. She had been on Augmentin for cat bite, but has finished and been off for 4 days, and she tested positive at home for COVID on Friday. She has experienced some shortness of breath and overly worse since COVID. She denies any fever for the last 3 days. Related Data Home Medications Medication Instructions Recorded Confirmed cetirizine 10 mg tablet (Zyrtec) 10 mg PO DAILY@199905/08/19 12/26/23 ipratropium bromide 17 1 puff inhalation QID@08,13,17 02/27/20 12/26/23 mcg/actuation HFA aerosol inhaler (Atrovent HFA) lorazepam 0.5 mg tablet (Ativan) 0.5 mg PO QID PRN Anxiety 09/20/20 12/26/23 amlodipine 10 mg tablet 10 mg PO DAILY 05/30/21 12/26/23 budesonide-formoterol HFA 160 2 puff inhalation DAILY 05/09/22 12/26/23 mcg-4.5 mcg/actuation aerosol inhaler bupropion HCl 300 mg 24 hr tablet, 300 mg PO QPM 05/09/22 12/26/23 extended release omeprazole 40 mg capsule,delayed 40 mg PO DAILY 05/09/22 12/26/23 release Previous Rx's Medication Instructions Recorded albuterol sulfate 90 mcg/actuation 2 puff inhalation Q6H PRN 05/12/20 aerosol inhaler shortness of breath or wheezing #8.5 grams losartan 50 mg tablet 25 mg (1/2 x 50 mg) PO DAILY 30 01/02/21 days #30 tabs nitroglycerin 0.4 mg sublingual 0.4 mg sublingual Q5M #30 tabs 01/09/21 tablet ipratropium 0.5 mg-albuterol 3 mg 3 ml inhalation Q6H PRN shortness 05/09/22 (2.5 mg base)/3 mL nebulization of breath or wheezing #180 mL soln tiotropium bromide 1.25 2 inh inhalation DAILY #4 grams 05/09/22 mcg/actuation mist for inhalation (Spiriva Respimat) celecoxib 200 mg capsule 200 mg PO BID #20 caps 02/19/23 cetirizine 10 mg capsule (All Day 10 mg PO DAILY PRN allergy 03/23/23 Allergy (cetirizine)) symptoms #30 caps fluticasone propionate 50 2 spray intranasal DAILY #16 grams 03/23/23 mcg/actuation nasal spray,suspension (Children's Flonase Allergy Relief) amoxicillin 875 mg-potassium 1 tab PO BID 7 days #14 tabs 12/19/23 clavulanate 125 mg tablet promethazine-DM 6.25 mg-15 mg/5 mL 5 ml PO Q4H PRN cough #118 mL 12/26/23 oral syrup methylprednisolone 4 mg tablets in See Rx Instructions PO .COMPLEX 12/29/23 a dose pack (Medrol (Fransico)) #21 ea Allergies Allergy/AdvReac Type Severity Reaction Status Date / Time metronidazole [From Flagyl] Allergy Severe ADR-Vomitin Verified 12/26/23 17:35 g codeine Allergy Intermediate ALGY-Anaphy Verified 12/26/23 17:35 laxis doxycycline Allergy Intermediate ALGY-Rash Verified 12/26/23 17:35 lisinopril Allergy Intermediate cough, Verified 12/26/23 17:35 swelling ibuprofen Allergy Unknown Unknown Verified 12/26/23 17:35 propranolol Allergy ALGY-Difficulty Verified 12/26/23 17:35 Breathing [facility] PFSH: Medical History NSTEMI (non-ST elevated myocardial infarction) Elevated troponin Chest heaviness Depression Generalized anxiety disorder Nicotine dependence, unspecified, uncomplicated Cigarette smoker motivated to quit Essential hypertension with goal blood pressure less than 130/80 COPD (chronic obstructive pulmonary disease) Social History Smoking and tobacco/nicotine status: unknown if used tobacco/nicotine Quit status (tobacco/nicotine): has tried quititng Number of times tried to quit tobacco: 5 Second hand smoke exposure: Yes Alcohol intake: never Substance/Drug Use: never Lives independently: Yes Household members: spouse Marital status: Current occupational status: unemployed Do you think of yourself as: Straight/Heterosexual Current gender identity: Female Physical Exam Const: COMMON NORMALS: no acute distress GENERAL APPEARANCE: cooperative; not ill appearing and not frail appearing HENMT: COMMON NORMALS: normocephalic, atraumatic and Normal external nose present HEAD & SCALP: normocephalic and atraumatic FACE & SINUS: normal facial exam and face symmetric NOSE: Normal external nose present Eye: COMMON NORMALS: Equal, round and reactive pupils present and EOMs intact bilaterally PUPIL: Yes Equal, round and reactive pupils present Neck/C-Spine: GENERAL: Yes trachea midline Chest: CHEST: Yes Symmetrical chest wall rise Resp: COMMON NORMALS: normal respiratory effort, No retractions, No use of accessory muscles and clear to auscultation bilaterally AUSCULTATION: clear to auscultation bilaterally Cardio: COMMON NORMALS: regular rate and regular rhythm RATE: regular rate RHYTHM: regular rhythm GI: COMMON NORMALS: Normal to inspection, nondistended, normoactive bowel sounds present Extremity: COMMON NORMALS: no pedal edema Neuro: LORRIE COMA SCALE: document [facility] findings [place] coma scale eye opening: Spontaneous Lorrie coma scale verbal response: Orientated [place] coma scale motor response: Obey commands [place] coma scale total score: 15 SENSORY EXAM: Yes extremities (intact) Psych: COMMON NORMALS: speech normal SPEECH: Yes normal speech Skin: RASHES: rashes noted (Widespread urticaria over the trunk and upper extremities) Course Vital Signs: Vital signs: Vital Signs Temperature 97.8 F 12/29/23 02:44 Pulse Rate 78 12/29/23 02:44 Respiratory Rate 16 12/29/23 02:44 Blood Pressure 154/82 12/29/23 02:44 Pulse Oximetry 98 12/29/23 02:44 Oxygen Delivery Me thod Room Air 12/29/23 02:44 MDM - Skin/Abscess/Foreign Bdy Medicial Decision Making Urticarial rash with itch. No respiratory compromise. Chest x-ray is clear, taken because of history of recent COVID in the setting of COPD cause of urticaria is unknown at this point. Will be treated with steroids and antihistamines. She will return for respiratory symptoms or worsening rash despite treatment. Outpatient follow-up. XR interpretation done by ED provider, pending radiology final review Discharge Plan Discharge Patient Disposition: Home Clinical Impression: Urticaria Condition: Stable Prescriptions: New methylprednisolone [Medrol (Fransico)] 4 mg tablets,dose pack See Rx Instructions .ROUTE .COMPLEX Qty: 21 0RF Rx Instructions: orally per package directions No Action nitroglycerin 0.4 mg tablet, sublingual 0.4 mg sublingual Q5M Qty: 30 2RF Rx Instructions: do not exceed 3 doses per episode amlodipine 10 mg tablet 10 mg PO DAILY amoxicillin-pot clavulanate 875-125 mg tablet 1 tab PO BID 7 Days Qty: 14 0RF promethazine-DM 6.25-15 mg/5 mL syrup 5 ml PO Q4H PRN (Reason: cough) Qty: 118 0RF Rx Instructions: Do not exceed more than 30ml/24hour period (6 doses) fluticasone propionate [Children's Flonase Allergy Rlf] 50 mcg/actuation spray,suspension 2 spray intranasal DAILY Qty: 16 0RF Rx Instructions: administer into each nostril All Day Allergy (cetirizine) 10 mg capsule 10 mg PO DAILY PRN (Reason: allergy symptoms) Qty: 30 0RF albuterol sulfate 90 mcg/actuation HFA aerosol inhaler 2 puff INHALATION Q6H PRN (Reason: shortness of breath or wheezing) Qty: 8.5 0RF cetirizine [Zyrtec] 10 mg Tablet 10 mg PO DAILY@2000 lorazepam [Ativan] 0.5 mg Tablet 0.5 mg PO QID PRN (Reason: Anxiety) Atrovent HFA 17 mcg/actuation HFA aerosol inhaler 1 puff INHALATION QID@08,13,17 losartan 50 mg Tablet 25 mg PO DAILY 30 Days Qty: 30 3RF omeprazole 40 mg capsule,delayed release(DR/EC) 40 mg PO DAILY bupropion HCl 300 mg tablet extended release 24 hr 300 mg PO QPM budesonide-formoterol 160-4.5 mcg/actuation HFA aerosol inhaler 2 puff INHALATION DAILY Spiriva Respimat 1.25 mcg/actuation mist 2 inh inhalation DAILY Qty: 4 0RF ipratropium-albuterol 0.5 mg-3 mg(2.5 mg base)/3 mL solution for nebulization 3 ml inhalation Q6H PRN (Reason: shortness of breath or wheezing) Qty: 180 0RF celecoxib 200 mg capsule 200 mg PO BID Qty: 20 0RF Discharge Orders: Discharge ED (Routine); Ordered 12/29/23 Ordered By: Leandro Sagastume Referrals: Ross Davis MD [Primary Care Provider] - 1-3 days Patient Instructions: Urticaria (ED), Opioid Safety, Pain Management Coding Level of Care Code ED Top Bottom Attaching Machine Operator for Lias Ibrahim
[2023-12-29] MEDS: methylPREDNISolone sod succ 125 mg/2 mL INJ 80 MG IM (04:44)
[2023-12-29] MEDS: diphenhydrAMINE 25 mg Capsule PO (04:44)
[2023-12-29 04:56] VITALS: BP 151/87; PULSE 74; RESP 16; O2SAT 97
== END 2023-12-29 04:58 | disposition home or self-care (01) ==
PROVIDERS: Emergency Provider Emergency Medicine; PCP Family Medicine
DX: L50.9 Urticaria, unspecified (principal); Z77.22 Contact with and (suspected) exposure to environmental tobacco smoke (acute) (chronic); I25.2 Old myocardial infarction; I10 Essential (primary) hypertension; J44.9 Chronic obstructive pulmonary disease, unspecified
CPT/HCPCS: 71045; 96372; 99284; J2919